=== PATIENT | male | born 1955 | race Caucasian/White ===

== ENCOUNTER 2016-06-27 08:00 | Outpatient (CLI) | payer MEDICARE | END 2016-06-27 08:01 | disposition home or self-care (01) | DX: E11.9 Type 2 diabetes mellitus without complications (principal) ==

== ENCOUNTER 2016-10-03 16:07 | Outpatient (CLI) | payer MEDICARE ==
[2016-10-03 13:46] LABS: ALBUMIN/GLOBULIN RATIO 1.3 (1.0-2.2); BILIRUBIN,TOTAL 0.8 mg/dL (0.2-1.0); BUN - BLOOD UREA NITROGEN 18 mg/dL (6-20); CALCIUM 9.6 mg/dL (8.5-10.3); CARBON DIOXIDE - CO2 24 mmol/L (21-32); CHLORIDE 103 mmol/L (101-111); CHOL/HDL RATIO 7.2 (<5.0); CHOLESTEROL 210 mg/dL; CREATININE 0.8 mg/dL (0.6-1.2); GFR - MDRD 98 (>89); GLUCOSE 122 mg/dL (70-100); HDL CHOLESTEROL 29 mg/dL; LDL/HDL RATIO 4.6 (<3.6); POTASSIUM 3.9 mmol/L (3.5-5.0); SODIUM 136 mmol/L (135-145); TOTAL PROTEIN 7.2 g/dL (6.7-8.2); TRIGLYCERIDES 239 mg/dL; VLDL CHOLESTEROL 48 mg/dL
[2016-10-03 13:58] LABS: HEMOGLOBIN A1C 0.53 g/dL
== END 2016-10-03 16:08 | disposition home or self-care (01) ==
LOC: LAB.N 16:07
PROVIDERS: ATTEND Family Medicine
DX: E78.5 Hyperlipidemia, unspecified (principal); E11.9 Type 2 diabetes mellitus without complications; I10 Essential (primary) hypertension
CPT/HCPCS: 36415; 80053; 80061; 83036

== ENCOUNTER 2017-01-09 08:00 | Outpatient (CLI) | payer MEDICARE ==
[2017-01-09 14:36] LABS: HEMOGLOBIN A1C 0.48 g/dL
== END 2017-01-09 08:01 | disposition home or self-care (01) ==
LOC: LAB.N 08:00
PROVIDERS: ATTEND Nurse Practitioner Gerontology
DX: E11.9 Type 2 diabetes mellitus without complications (principal)
CPT/HCPCS: 36415; 83036

== ENCOUNTER 2017-04-11 14:19 | Outpatient (CLI) | payer MEDICARE ==
[2017-04-11 14:18] LABS: HEMOGLOBIN A1C 0.53 g/dL
== END 2017-04-11 14:20 | disposition home or self-care (01) ==
LOC: LAB.N 14:19
PROVIDERS: ATTEND Nurse Practitioner Gerontology
DX: E11.9 Type 2 diabetes mellitus without complications (principal)
CPT/HCPCS: 36415; 83036

== ENCOUNTER 2017-07-19 14:02 | Outpatient (CLI) | payer MEDICARE ==
[2017-07-19 19:29] LABS: HB2 TOTAL 13.7 g/dL; HEMOGLOBIN A1C 0.54 g/dL; HEMOGLOBIN A1C % 5.8 % (4.6-6.2)
== END 2017-07-19 14:03 | disposition home or self-care (01) ==
LOC: LAB.N 14:02
PROVIDERS: ATTEND Nurse Practitioner Gerontology
DX: E11.9 Type 2 diabetes mellitus without complications (principal)
CPT/HCPCS: 36415; 83036

== ENCOUNTER 2017-10-29 08:00 | Outpatient (CLI) | END 2017-10-29 08:01 | disposition home or self-care (01) ==

== ENCOUNTER 2018-01-29 13:20 | Outpatient (CLI) | payer MEDICARE ==
[2018-01-29 19:16] LABS: HB2 TOTAL 13.1 g/dL; HEMOGLOBIN A1C 0.62 g/dL; HEMOGLOBIN A1C % 6.5 % (4.6-6.2)
== END 2018-01-29 13:21 | disposition home or self-care (01) ==
LOC: LAB.N 13:20
PROVIDERS: ATTEND Nurse Practitioner Gerontology
DX: E11.9 Type 2 diabetes mellitus without complications (principal)
CPT/HCPCS: 36415; 83036

== ENCOUNTER 2018-05-14 09:56 | Outpatient (CLI) | payer MEDICARE ==
[2018-05-14 13:02] LABS: ALBUMIN/GLOBULIN RATIO 1.3 (1.0-2.2); ALKALINE PHOSPHATASE 104 IU/L (42-121); ALT ALANINE AMINOTRANSFERASE 28 IU/L (10-60); AST ASPARTATE AMINOTRANSFERASE 25 IU/L (10-42); BILIRUBIN,TOTAL 0.7 mg/dL (0.2-1.0); BUN - BLOOD UREA NITROGEN 13 mg/dL (6-20); CALCIUM 9.3 mg/dL (8.5-10.3); CARBON DIOXIDE - CO2 24 mmol/L (21-32); CHLORIDE 103 mmol/L (101-111); CHOL/HDL RATIO 6.9 (<5.0); CHOLESTEROL 214 mg/dL; CREATININE 0.4 mg/dL (0.6-1.2); GFR - MDRD 218 (>89); GLUCOSE 149 mg/dL (70-100); HB2 TOTAL 12.8 g/dL; HDL CHOLESTEROL 31 mg/dL; HEMOGLOBIN A1C 0.58 g/dL; HEMOGLOBIN A1C % 6.3 % (4.6-6.2); LDL CHOLESTEROL,CALCULATED 141 mg/dL; LDL/HDL RATIO 4.5 (<3.6); SODIUM 138 mmol/L (135-145); TOTAL PROTEIN 7.1 g/dL (6.7-8.2); VLDL CHOLESTEROL 42 mg/dL
== END 2018-05-14 23:59 ==
LOC: LAB.N 09:56
PROVIDERS: ATTEND Nurse Practitioner Gerontology
DX: E78.5 Hyperlipidemia, unspecified (principal); E11.9 Type 2 diabetes mellitus without complications
CPT/HCPCS: 36415; 80053; 80061; 83036; 83721; 84443

== ENCOUNTER 2018-08-16 08:00 | Outpatient (CLI) | payer MEDICARE ==
[2018-08-16 13:27] LABS: HB2 TOTAL 12.8 g/dL; HEMOGLOBIN A1C 0.65 g/dL; HEMOGLOBIN A1C % 6.8 % (4.6-6.2)
== END 2018-08-16 23:59 | disposition home or self-care (01) ==
LOC: LAB.N 08:00
PROVIDERS: ATTEND Nurse Practitioner Gerontology
DX: E11.9 Type 2 diabetes mellitus without complications (principal)
CPT/HCPCS: 36415; 83036

== ENCOUNTER 2018-11-19 08:00 | Outpatient (CLI) | payer MEDICARE ==
[2018-11-19 14:05] LABS: HB2 TOTAL 12.3 g/dL; HEMOGLOBIN A1C 0.59 g/dL; HEMOGLOBIN A1C % 6.5 % (4.6-6.2)
== END 2018-11-19 23:59 | disposition home or self-care (01) ==
LOC: LAB.N 08:00
PROVIDERS: ATTEND Nurse Practitioner Gerontology
DX: E11.9 Type 2 diabetes mellitus without complications (principal)
CPT/HCPCS: 36415; 83036

== ENCOUNTER 2019-02-28 08:00 | Outpatient (CLI) | payer MEDICARE ==
[2019-02-28 12:36] LABS: CALCIUM 9.7 mg/dL (8.5-10.3); CREATININE 0.8 mg/dL (0.6-1.2)
[2019-02-28 13:21] LABS: HB2 TOTAL 13.1 g/dL; HEMOGLOBIN A1C 0.62 g/dL; HEMOGLOBIN A1C % 6.5 % (4.6-6.2)
[2019-02-28 18:52] LABS: CREATININE,URINE 234.5 mg/dL; MICROALBUM/CREATININE RATIO,UR 7.2 ug/mg (<30.0); MICROALBUMIN,URINE 1.7 mg/dL (0-300.0)
== END 2019-02-28 23:59 | disposition home or self-care (01) ==
LOC: LAB.N 08:00
PROVIDERS: ATTEND Nurse Practitioner Gerontology
DX: I10 Essential (primary) hypertension (principal); E11.9 Type 2 diabetes mellitus without complications
CPT/HCPCS: 36415; 80048; 82043; 82570; 83036

== ENCOUNTER 2019-06-04 08:48 | Outpatient (CLI) | payer MEDICARE ==
[2019-06-04 12:14] LABS: BASOPHILS % (AUTO) 0.9 %; EOSINOPHILS # (AUTO) 0.2 10^3/uL (0.0-0.7); EOSINOPHILS % (AUTO) 4.7 %; HGB - HEMOGLOBIN 11.5 g/dL (14.0-18.0); LYMPHOCYTES # (AUTO) 1.4 10^3/uL (1.5-3.5); LYMPHOCYTES % (AUTO) 31.3 %; MEAN CORPUSCULAR HEMOGLOBIN 29.4 pg (27.0-31.0); MEAN CORPUSCULAR HGB CONC 31.1 g/dL (32.0-36.0); MEAN CORPUSCULAR VOLUME 94.6 fL (80.0-94.0); MONOCYTES # (AUTO) 0.6 10^3/uL (0.0-1.0); MONOCYTES % (AUTO) 13.5 %; NEUTROPHILS # (AUTO) 2.2 10^3/uL (1.5-6.6); NEUTROPHILS % (AUTO) 49.4 %; PLT - PLATELET COUNT 193 10^3/uL (130-450); RED BLOOD COUNT 3.91 10^6/uL (4.70-6.10); RED CELL DISTRIBUTION WIDTH 14.2 % (12.0-15.0); WHITE BLOOD COUNT 4.4 x10^3/uL (4.8-10.8)
[2019-06-04 12:25] LABS: ALBUMIN 3.8 g/dL (3.2-5.5); ALBUMIN/GLOBULIN RATIO 1.2 (1.0-2.2); ALKALINE PHOSPHATASE 101 IU/L (42-121); ALT ALANINE AMINOTRANSFERASE 23 IU/L (10-60); AST ASPARTATE AMINOTRANSFERASE 26 IU/L (10-42); BILIRUBIN,TOTAL 0.6 mg/dL (0.2-1.0); BUN - BLOOD UREA NITROGEN 10 mg/dL (6-20); CALCIUM 9.1 mg/dL (8.5-10.3); CARBON DIOXIDE - CO2 26 mmol/L (21-32); CHLORIDE 101 mmol/L (101-111); CHOL/HDL RATIO 5.7 (<5.0); CHOLESTEROL 166 mg/dL; CREATININE 0.7 mg/dL (0.6-1.2); GFR - MDRD 114 (>89); GLUCOSE 127 mg/dL (70-100); HDL CHOLESTEROL 29 mg/dL; LDL CHOLESTEROL,CALCULATED 99 mg/dL; LDL/HDL RATIO 3.4 (<3.6); SODIUM 138 mmol/L (135-145); VLDL CHOLESTEROL 38 mg/dL
[2019-06-04 12:26] LABS: HB2 TOTAL 11.9 g/dL; HEMOGLOBIN A1C 0.51 g/dL; HEMOGLOBIN A1C % 6.1 % (4.6-6.2)
== END 2019-06-04 23:59 | disposition home or self-care (01) ==
LOC: LAB.N 08:48
PROVIDERS: ATTEND Nurse Practitioner Gerontology
DX: I10 Essential (primary) hypertension (principal); E78.5 Hyperlipidemia, unspecified; E11.9 Type 2 diabetes mellitus without complications
CPT/HCPCS: 36415; 80053; 80061; 83036; 83721; 85025

== ENCOUNTER 2019-06-12 09:00 | Outpatient (CLI) | payer MEDICARE ==
[2019-06-12 13:15] LABS: FERRITIN 75.4 ng/mL (23.9-336.2)
[2019-06-12 13:19] LABS: FOLATE 7.88 ng/mL (5.90 - >24.8)
[2019-06-12 13:27] LABS: % IRON SATURATION 14 % (20-50); IRON 48 ug/dL (45-182); TOTAL IRON BINDING CAPACITY 336 ug/dL (250-450); TRANSFERRIN 240 mg/dL (180-329)
== END 2019-06-12 23:59 | disposition home or self-care (01) ==
LOC: LAB.N 09:00
PROVIDERS: ATTEND Nurse Practitioner Gerontology
DX: D64.9 Anemia, unspecified (principal)
CPT/HCPCS: 36415; 82607; 82728; 82746; 83540; 84466

== ENCOUNTER 2019-09-02 08:00 | Outpatient (CLI) | payer MEDICARE ==
[2019-09-02 13:37] LABS: BASOPHILS % (AUTO) 0.8 %; EOSINOPHILS # (AUTO) 0.2 10^3/uL (0.0-0.7); EOSINOPHILS % (AUTO) 4.3 %; HGB - HEMOGLOBIN 11.8 g/dL (14.0-18.0); LYMPHOCYTES # (AUTO) 1.3 10^3/uL (1.5-3.5); LYMPHOCYTES % (AUTO) 24.7 %; MEAN CORPUSCULAR HEMOGLOBIN 28.6 pg (27.0-31.0); MEAN CORPUSCULAR HGB CONC 31.8 g/dL (32.0-36.0); MEAN PLATELET VOLUME 10.3 fL (7.4-11.4); MONOCYTES # (AUTO) 0.6 10^3/uL (0.0-1.0); NEUTROPHILS # (AUTO) 2.9 10^3/uL (1.5-6.6); NEUTROPHILS % (AUTO) 57.8 %; PLT - PLATELET COUNT 202 10^3/uL (130-450); RED BLOOD COUNT 4.12 10^6/uL (4.70-6.10); RED CELL DISTRIBUTION WIDTH 14.6 % (12.0-15.0); WHITE BLOOD COUNT 5.1 x10^3/uL (4.8-10.8)
[2019-09-02 13:45] LABS: HB2 TOTAL 11.9 g/dL; HEMOGLOBIN A1C 0.51 g/dL; HEMOGLOBIN A1C % 6.1 % (4.6-6.2)
[2019-09-02 13:48] LABS: CALCIUM 9.3 mg/dL (8.5-10.3); CREATININE 0.8 mg/dL (0.6-1.2)
[2019-09-02 18:27] LABS: MICROALBUM/CREATININE RATIO,UR 12.9 ug/mg (<30.0); MICROALBUMIN,URINE 3.1 mg/dL (0-300.0)
== END 2019-09-02 23:59 | disposition home or self-care (01) ==
LOC: LAB.WCP 08:00
PROVIDERS: ATTEND Family Medicine
DX: D64.9 Anemia, unspecified (principal); E11.9 Type 2 diabetes mellitus without complications; I10 Essential (primary) hypertension
CPT/HCPCS: 36415; 80048; 82043; 82570; 83036; 85025

== ENCOUNTER 2019-11-24 08:00 | Outpatient (CLI) | payer MEDICARE | END 2019-11-24 08:01 | disposition home or self-care (01) | LOC: COV 08:00 | PROVIDERS: ATTEND Family Medicine | DX: Z01.812 Encounter for preprocedural laboratory examination (principal); R43.8 Other disturbances of smell and taste; Z20.828 Contact with and (suspected) exposure to other viral communicable diseases ==

== ENCOUNTER 2019-11-27 06:25 | Day surgery (SDC) | payer MEDICARE ==
[2019-11-27] MEDS ORDERED: fentaNYL 250 MCG/5 ML VIAL IVP ONE (06:26)
[2019-11-27] MEDS ORDERED: MIDAZOLAM 2 MG/2 ML VIAL IVP ONE (06:26)
[2019-11-27] MEDS ORDERED: LACTATED RINGERS 1,000 ML IV ONE (06:45)
[2019-11-27 08:55] VITALS: BP 112/65
== END 2019-11-27 06:26 | disposition home or self-care (01) ==
LOC: SDS 06:25
PROVIDERS: ATTEND Surgery
PROC: 0DJD8ZZ Inspection of Lower Intestinal Tract, Via Natural or Artificial Opening Endoscopic (ICD-10-PCS; principal; 2019-11-27 07:30)
DX: Z12.11 Encounter for screening for malignant neoplasm of colon (principal); K64.8 Other hemorrhoids; K57.30 Diverticulosis of large intestine without perforation or abscess without bleeding; Q43.8 Other specified congenital malformations of intestine; E66.9 Obesity, unspecified; E11.9 Type 2 diabetes mellitus without complications; Z68.41 Body mass index [BMI] 40.0-44.9, adult; Z79.84 Long term (current) use of oral hypoglycemic drugs
CPT/HCPCS: G0121; J3010; J7120

== ENCOUNTER 2020-02-27 08:00 | Outpatient (CLI) | payer MEDICARE ==
[2020-02-27 11:55] LABS: CALCIUM 9.5 mg/dL (8.5-10.3); CREATININE 0.6 mg/dL (0.6-1.2)
== END 2020-02-27 23:59 | disposition home or self-care (01) ==
LOC: LAB.WCP 08:00
PROVIDERS: ATTEND Family Medicine
DX: E11.9 Type 2 diabetes mellitus without complications (principal)
CPT/HCPCS: 36415; 80048; 82043; 82570; 83036

== ENCOUNTER 2020-02-27 11:00 | Outpatient (CLI) | payer MEDICARE ==
[2020-02-27 19:09] LABS: CREATININE,URINE 145.6 mg/dL; MICROALBUM/CREATININE RATIO,UR 12.4 ug/mg (<30.0); MICROALBUMIN,URINE 1.8 mg/dL (0-300.0)
== END 2020-02-27 23:59 | disposition home or self-care (01) ==
LOC: LAB.R 11:00
PROVIDERS: ATTEND Family Medicine
DX: E11.9 Type 2 diabetes mellitus without complications (principal)
CPT/HCPCS: 82043; 82570

== ENCOUNTER 2020-07-20 07:00 | Outpatient (CLI) | payer MEDICARE ==
[2020-07-20 12:08] LABS: CREATININE,URINE 113.4 mg/dL; MICROALBUM/CREATININE RATIO,UR 6.2 ug/mg (<30.0); MICROALBUMIN,URINE 0.7 mg/dL (0-300.0)
[2020-07-20 12:15] LABS: BASOPHILS # (AUTO) 0.1 10^3/uL (0.0-0.1); BASOPHILS % (AUTO) 1.1 %; EOSINOPHILS # (AUTO) 0.2 10^3/uL (0.0-0.7); EOSINOPHILS % (AUTO) 5.1 %; HCT - HEMATOCRIT 37.2 % (42.0-52.0); HGB - HEMOGLOBIN 12.2 g/dL (14.0-18.0); LYMPHOCYTES # (AUTO) 1.1 10^3/uL (1.5-3.5); LYMPHOCYTES % (AUTO) 23.6 %; MEAN CORPUSCULAR HEMOGLOBIN 30.3 pg (27.0-31.0); MEAN CORPUSCULAR HGB CONC 32.8 g/dL (32.0-36.0); MEAN CORPUSCULAR VOLUME 92.5 fL (80.0-94.0); MEAN PLATELET VOLUME 10.3 fL (7.4-11.4); MONOCYTES # (AUTO) 0.6 10^3/uL (0.0-1.0); MONOCYTES % (AUTO) 13.3 %; NEUTROPHILS # (AUTO) 2.7 10^3/uL (1.5-6.6); NEUTROPHILS % (AUTO) 56.7 %; PLT - PLATELET COUNT 203 10^3/uL (130-450); RED BLOOD COUNT 4.02 10^6/uL (4.70-6.10); RED CELL DISTRIBUTION WIDTH 13.7 % (12.0-15.0); WHITE BLOOD COUNT 4.7 x10^3/uL (4.8-10.8)
[2020-07-20 12:18] LABS: ESTIMATED AVERAGE GLUCOSE 126 mg/dL (70-100)
[2020-07-20 12:31] LABS: ALBUMIN 4.1 g/dL (3.2-5.5); ALBUMIN/GLOBULIN RATIO 1.3 (1.0-2.2); ALKALINE PHOSPHATASE 100 IU/L (42-121); ALT ALANINE AMINOTRANSFERASE 22 IU/L (10-60); AST ASPARTATE AMINOTRANSFERASE 28 IU/L (10-42); BILIRUBIN,TOTAL 0.9 mg/dL (0.2-1.0); BUN - BLOOD UREA NITROGEN 14 mg/dL (6-20); CALCIUM 9.3 mg/dL (8.5-10.3); CARBON DIOXIDE - CO2 22 mmol/L (21-32); CHLORIDE 103 mmol/L (101-111); CHOL/HDL RATIO 6.6 (<5.0); CHOLESTEROL 217 mg/dL; CREATININE 0.8 mg/dL (0.6-1.2); GFR - MDRD 97 (>89); GLUCOSE 157 mg/dL (70-100); HDL CHOLESTEROL 33 mg/dL; LDL CHOLESTEROL,CALCULATED 147 mg/dL; LDL/HDL RATIO 4.5 (<3.6); POTASSIUM 3.9 mmol/L (3.5-5.0); SODIUM 134 mmol/L (135-145); TOTAL PROTEIN 7.3 g/dL (6.7-8.2); TRIGLYCERIDES 187 mg/dL; VLDL CHOLESTEROL 37 mg/dL
[2020-07-20 12:35] LABS: THYROID STIMULATING HORMONE 2.02 uIU/mL (0.34-5.60)
== END 2020-07-20 23:59 | disposition home or self-care (01) ==
LOC: LAB.WCP 07:00
PROVIDERS: ATTEND Internal Medicine
DX: E11.9 Type 2 diabetes mellitus without complications (principal); E78.5 Hyperlipidemia, unspecified; E21.3 Hyperparathyroidism, unspecified; Z12.5 Encounter for screening for malignant neoplasm of prostate; D64.9 Anemia, unspecified
CPT/HCPCS: 36415; 80053; 80061; 82043; 82570; 83036; 83970; 84443; 85025; G0103; 83721; 84153

== ENCOUNTER 2020-11-18 09:32 | Outpatient (CLI) | payer MEDICARE ==
[2020-11-18 12:15] LABS: ALT ALANINE AMINOTRANSFERASE 24 IU/L (10-60); CHOL/HDL RATIO 6.1 (<5.0); CHOLESTEROL 170 mg/dL; HDL CHOLESTEROL 28 mg/dL; LDL CHOLESTEROL,CALCULATED 89 mg/dL; LDL/HDL RATIO 3.2 (<3.6); TRIGLYCERIDES 265 mg/dL; VLDL CHOLESTEROL 53 mg/dL
== END 2020-11-18 23:59 | disposition home or self-care (01) ==
LOC: LAB.WCP 09:32
PROVIDERS: ATTEND Internal Medicine
DX: E78.5 Hyperlipidemia, unspecified (principal)
CPT/HCPCS: 36415; 80061; 83721; 84460

== ENCOUNTER 2021-02-25 10:43 | Outpatient (CLI) | payer MEDICARE ==
[2021-02-25 18:35] LABS: BUN - BLOOD UREA NITROGEN 12 mg/dL (6-20); CALCIUM 9.4 mg/dL (8.5-10.3); CARBON DIOXIDE - CO2 23 mmol/L (21-32); CHLORIDE 101 mmol/L (101-111); CHOL/HDL RATIO 5.4 (<5.0); CHOLESTEROL 177 mg/dL; CREATININE 0.8 mg/dL (0.6-1.2); GFR - MDRD 97 (>89); GLUCOSE 151 mg/dL (70-100); HDL CHOLESTEROL 33 mg/dL; LDL CHOLESTEROL,CALCULATED 100 mg/dL; POTASSIUM 3.9 mmol/L (3.5-5.0); SODIUM 135 mmol/L (135-145); TRIGLYCERIDES 219 mg/dL; VLDL CHOLESTEROL 44 mg/dL
[2021-02-25 21:13] LABS: ESTIMATED AVERAGE GLUCOSE 143 mg/dL (70-100); HEMOGLOBIN A1c% 6.6 % (4.27-6.07)
== END 2021-02-25 23:59 | disposition home or self-care (01) ==
LOC: LAB.WCP 10:43
PROVIDERS: ATTEND Internal Medicine
DX: E11.9 Type 2 diabetes mellitus without complications (principal); I25.10 Atherosclerotic heart disease of native coronary artery without angina pectoris
CPT/HCPCS: 36415; 80048; 80061; 83036; 83721

== ENCOUNTER 2021-03-18 07:59 | Outpatient (CLI) | payer MEDICARE ==
--- NOTE | 2021-03-18 09:57 | DEXA Report ---
PROCEDURE: Dexa Spine and/or Hip INDICATIONS: HYPERPARATHYROIDISM TECHNIQUE: Dual energy x-ray absorptiometry (DXA) was performed on a Dormify System. Regions measur ed are the AP Spine, femoral neck, and the forearm. Forearm was measured secondary to hyperparathyroi dism. There is also discogenic sclerosis at the L1 vertebral body COMPARISON: None. FINDINGS: Left Femoral Neck: Bone Mineral Density 1.025 g/cm/cm, T score -0.3, normal Left forearm: Bone Mineral Density 0.946 g/cm/cm, T score -0.4, normal (T score greater or equal to -1.0: NORMAL) (T score from -1.1 to -2.4: OSTEOPENIA) (T score less than or equal to -2.5 to: OSTEOPOROSIS) Impression: Normal. Patients with diagnosis of osteoporosis or osteopenia should have regular bone mineral density assess ment. For those eligible for Medicare, routine testing is allowed once every 2 years. Testing frequ ency can be increased for patients who have rapidly progressing disease or for those who are receivin g medical therapy to restore bone mass. Reviewed by: Hardik Walker MD on 03/18/2021 9:55 AM PST Approved by: Hardik Walker MD on 03/18/2021 9:55 AM PST Station ID: [id number]
== END 2021-03-18 08:00 | disposition home or self-care (01) ==
LOC: DI 07:59
PROVIDERS: ATTEND Internal Medicine
DX: E21.0 Primary hyperparathyroidism (principal)

== ENCOUNTER 2021-07-25 09:21 | Outpatient (CLI) | payer MEDICARE ==
[2021-07-25 12:04] LABS: BASOPHILS % (AUTO) 0.5 %; EOSINOPHILS # (AUTO) 0.2 10^3/uL (0.0-0.7); EOSINOPHILS % (AUTO) 3.6 %; HCT - HEMATOCRIT 37.4 % (42.0-52.0); HGB - HEMOGLOBIN 12.3 g/dL (14.0-18.0); LYMPHOCYTES # (AUTO) 1.3 10^3/uL (1.5-3.5); LYMPHOCYTES % (AUTO) 22.8 %; MEAN CORPUSCULAR HEMOGLOBIN 28.9 pg (27.0-31.0); MEAN CORPUSCULAR HGB CONC 32.9 g/dL (32.0-36.0); MEAN PLATELET VOLUME 10.3 fL (7.4-11.4); MONOCYTES # (AUTO) 0.7 10^3/uL (0.0-1.0); MONOCYTES % (AUTO) 12.5 %; NEUTROPHILS # (AUTO) 3.5 10^3/uL (1.5-6.6); NEUTROPHILS % (AUTO) 60.6 %; PLT - PLATELET COUNT 190 10^3/uL (130-450); RED BLOOD COUNT 4.25 10^6/uL (4.70-6.10); RED CELL DISTRIBUTION WIDTH 14.6 % (12.0-15.0); WHITE BLOOD COUNT 5.8 x10^3/uL (4.8-10.8)
[2021-07-25 12:12] LABS: CREATININE,URINE 172.1 mg/dL; MICROALBUM/CREATININE RATIO,UR 15.1 ug/mg (<30.0); MICROALBUMIN,URINE 2.6 mg/dL (0-300.0)
[2021-07-25 12:57] LABS: THYROID STIMULATING HORMONE 2.14 uIU/mL (0.34-5.60)
[2021-07-25 13:00] LABS: ALBUMIN 4.1 g/dL (3.2-5.5); ALBUMIN/GLOBULIN RATIO 1.2 (1.0-2.2); ALKALINE PHOSPHATASE 106 IU/L (42-121); ALT ALANINE AMINOTRANSFERASE 23 IU/L (10-60); AST ASPARTATE AMINOTRANSFERASE 30 IU/L (10-42); BILIRUBIN,TOTAL 0.6 mg/dL (0.2-1.0); BUN - BLOOD UREA NITROGEN 17 mg/dL (6-20); CALCIUM 9.3 mg/dL (8.5-10.3); CARBON DIOXIDE - CO2 23 mmol/L (21-32); CHLORIDE 102 mmol/L (101-111); CHOL/HDL RATIO 5.1 (<5.0); CHOLESTEROL 173 mg/dL; CREATININE 0.8 mg/dL (0.6-1.2); GFR - MDRD 97 (>89); GLUCOSE 146 mg/dL (70-100); HDL CHOLESTEROL 34 mg/dL; LDL CHOLESTEROL,CALCULATED 95 mg/dL; LDL/HDL RATIO 2.8 (<3.6); POTASSIUM 3.6 mmol/L (3.5-5.0); SODIUM 137 mmol/L (135-145); TOTAL PROTEIN 7.6 g/dL (6.7-8.2); TRIGLYCERIDES 221 mg/dL; VLDL CHOLESTEROL 44 mg/dL
[2021-07-25 13:46] LABS: ESTIMATED AVERAGE GLUCOSE 128 mg/dL (70-100); HEMOGLOBIN A1c% 6.1 % (4.27-6.07)
== END 2021-07-25 09:22 | disposition home or self-care (01) ==
LOC: LAB.N 09:21
PROVIDERS: ATTEND Internal Medicine
DX: I10 Essential (primary) hypertension (principal); E11.9 Type 2 diabetes mellitus without complications; E21.0 Primary hyperparathyroidism; Z12.5 Encounter for screening for malignant neoplasm of prostate
CPT/HCPCS: 36415; 80053; 80061; 82043; 82570; 83036; 83970; 84443; 85025; G0103; 83721; 84153

== ENCOUNTER 2022-05-15 08:21 | Outpatient (CLI) | payer MEDICARE ==
[2022-05-15 12:38] LABS: BASOPHILS % (AUTO) 0.8 %; EOSINOPHILS # (AUTO) 0.2 10^3/uL (0.0-0.7); EOSINOPHILS % (AUTO) 3.9 %; HCT - HEMATOCRIT 37.5 % (42.0-52.0); LYMPHOCYTES # (AUTO) 1.3 10^3/uL (1.5-3.5); LYMPHOCYTES % (AUTO) 26.9 %; MEAN CORPUSCULAR HEMOGLOBIN 29.1 pg (27.0-31.0); MEAN PLATELET VOLUME 10.5 fL (7.4-11.4); MONOCYTES # (AUTO) 0.6 10^3/uL (0.0-1.0); MONOCYTES % (AUTO) 12.1 %; NEUTROPHILS # (AUTO) 2.7 10^3/uL (1.5-6.6); NEUTROPHILS % (AUTO) 56.1 %; PLT - PLATELET COUNT 181 10^3/uL (130-450); RED BLOOD COUNT 4.12 10^6/uL (4.70-6.10); RED CELL DISTRIBUTION WIDTH 14.5 % (12.0-15.0); WHITE BLOOD COUNT 4.9 x10^3/uL (4.8-10.8)
[2022-05-15 13:00] LABS: CREATININE,URINE 115.7 mg/dL; ESTIMATED AVERAGE GLUCOSE 131 mg/dL (70-100); HEMOGLOBIN A1c% 6.2 % (4.27-6.07); MICROALBUM/CREATININE RATIO,UR 16.4 ug/mg (<30.0); MICROALBUMIN,URINE 1.9 mg/dL (0-300.0)
[2022-05-15 13:06] LABS: THYROID STIMULATING HORMONE 3.23 uIU/mL (0.34-5.60)
[2022-05-15 13:07] LABS: ALBUMIN 4.1 g/dL (3.2-5.5); ALBUMIN/GLOBULIN RATIO 1.2 (1.0-2.2); ALKALINE PHOSPHATASE 110 IU/L (42-121); ALT ALANINE AMINOTRANSFERASE 22 IU/L (10-60); AST ASPARTATE AMINOTRANSFERASE 27 IU/L (10-42); BILIRUBIN,TOTAL 0.7 mg/dL (0.2-1.0); BUN - BLOOD UREA NITROGEN 14 mg/dL (6-20); CALCIUM 9.7 mg/dL (8.5-10.3); CARBON DIOXIDE - CO2 25 mmol/L (21-32); CHLORIDE 102 mmol/L (101-111); CHOL/HDL RATIO 4.9 (<5.0); CHOLESTEROL 165 mg/dL; CREATININE 0.7 mg/dL (0.6-1.2); GFR - MDRD 113 (>89); GLUCOSE 150 mg/dL (70-100); HDL CHOLESTEROL 34 mg/dL; LDL CHOLESTEROL,CALCULATED 94 mg/dL; LDL/HDL RATIO 2.8 (<3.6); POTASSIUM 3.9 mmol/L (3.5-5.0); SODIUM 136 mmol/L (135-145); TOTAL PROTEIN 7.6 g/dL (6.7-8.2); TRIGLYCERIDES 186 mg/dL; VLDL CHOLESTEROL 37 mg/dL
== END 2022-05-15 08:22 | disposition home or self-care (01) ==
LOC: LAB.N 08:21
PROVIDERS: ATTEND Internal Medicine
DX: E78.5 Hyperlipidemia, unspecified (principal); Z12.5 Encounter for screening for malignant neoplasm of prostate; E11.9 Type 2 diabetes mellitus without complications; F32.A Depression, unspecified; I10 Essential (primary) hypertension
CPT/HCPCS: 36415; 80053; 80061; 82043; 82570; 83036; 84443; 85025; G0103; 83721; 84153

== ENCOUNTER 2022-06-28 20:47 | Outpatient (CLI) | payer MEDICARE, MEDICAID | END 2022-06-28 23:59 | disposition critical access hospital (66) | LOC: EMS 20:47 | DX: M54.50 Low back pain, unspecified (principal) | CPT/HCPCS: A0425; A0429 ==

== ENCOUNTER 2022-06-28 21:31 | Emergency (ER) | payer MEDICARE, MEDICAID ==
[2022-06-28] MEDS ORDERED: ACETAMINOPHEN 325 MG TABLET PO STA (21:54)
[2022-06-28] MEDS ORDERED: LIDOCAINE PATCH 5% TOP STA (21:54)
--- NOTE | 2022-06-28 22:47 | ED Physician Documentation ---
PD HPI BACK PAIN - Stated complaint Stated Complaint: R HIP PX - Chief complaint Chief Complaint: Back Pain - History obtained from History obtained from: Patient - Additional information Additional information: Patient is a 66-year-old male presenting for evaluation of right hip/Buttock pain that is been present for 4 days. Patient reports waking up with this pain 4 days ago and it has continued. He notices it more when he is walking. Today he was walking at home and noticed increased episodes of pain. However since calling EMS the pain has started to subside. He has not taken anything for the pain. He denies trauma or known injury.The pain does not radiate elsewhere. He denies bowel or bladder incontinence. He denies Back pain. Review of Systems Constitutional: denies: Fever Cardiac: denies: Chest pain / pressure Respiratory: denies: Dyspnea GI: denies: Abdominal Pain : denies: Dysuria Musculoskeletal: denies: Back pain Neurologic: denies: Headache PD PAST MEDICAL HISTORY - Past Medical History Past Medical History: Yes Cardiovascular: Hypertension, High cholesterol, Coronary artery disease, [place] Endocrine/Autoimmune: Type 2 diabetes GI: Diverticulitis HEENT: Other Psych: None Musculoskeletal: Chronic back pain - Past Surgical History Past Surgical History: Yes Ortho: Carpal Tunnel surgery, Spine surgery, Other Cardiovascular: Angioplasty Neuro: Craniotomy, Other - Present Medications Home Medications: Ambulatory Orders Medication Instructions Recorded Confirmed Amlodipine Besylate 10 mg PO DAILY 02/06/14 11/27/19 Cholecalciferol (Vitamin D3) 5,000 unit PO DAILY 02/06/14 02/25/14 [Vitamin D3] Nitroglycerin [Nitrostat] 0.4 mg SL Q5MIN PRN 02/06/14 11/26/19 Vitamin B 12 1,000 mcg PO DAILY 02/25/14 11/27/19 Lidocaine Patch 5% [Lidoderm Patch] 1 patch TOP DAILY PRN #10 patch 06/28/22 Rosuvastatin Calcium [Crestor] 40 mg PO DAILY 06/28/22 06/28/22 gemfibroziL [Lopid] 600 mg PO BIDAC 06/28/22 06/28/22 lisinopriL [Zestril] 5 mg PO DAILY 06/28/22 06/28/22 metFORMIN [Glucophage] 500 mg PO BIDWM 06/28/22 06/28/22 - Allergies Allergies/Adverse Reactions: Allergies Allergy/AdvReac Type Severity Reaction Status Date / Time baclofen AdvReac Headache Verified 02/06/14 12:41 terfenadine [From Seldane] AdvReac Headache Verified 02/06/14 12:41 seasonal Allergy Unknown Uncoded 02/06/14 12:41 - Social History Does the pt smoke?: No Smoking Status: Never smoker PD ED PE NORMAL - General General: Alert and oriented X 3, No acute distress, Well developed/nourished - HEENT HEENT: Atraumatic - Neck Neck: Supple, no meningeal sign - Cardiac Cardiac: RRR - Respiratory Respiratory: No respiratory distress, Clear bilaterally - Abdomen Abdomen: Soft, Non tender, Non distended - Back Back: No CVA TTP, No spinal TTP - Extremities Extremities: Other (Mild pain on external rotation of right hip, no deformity; Patient able to ambulate without any difficulty) - Neuro Neuro: Alert and oriented X 3, No motor deficit, Normal speech PD ED PE EXPANDED - Back Back visual: 1 - tenderness (No rash, bruising or deformity) Results - Vitals Vitals: Vital Signs - 24 hr 06/28/22 06/28/22 21:32 22:55 Temperature 37.1 C 37.0 C Heart Rate 82 70 Respiratory 16 18 Rate Blood Pressure 160/80 H 128/108 H O2 Saturation 99 100 Oxygen O2 Source Room air PD Medical Decision Making - ED course Complexity details: reviewed results ED course: Patient with pain in the region of his right hip and buttock. No trauma or fall. He is able to ambulate without difficulty. The pain has improved since coming to the emergency department.No signs of a septic joint. An x-ray was obtained which I reviewed and I see no signs of a fracture or dislocation. Patient feels much better with the lidocaine patch and acetaminophen. He is counseled on continued supportive care as well as need Concerning symptoms to return for. Departure - Departure Disposition: 01 Home, Self Care Clinical Impression: Right hip pain Condition: Stable Instructions: ED Sprain Hip Prescriptions: Lidocaine Patch 5% [Lidoderm Patch] 1 patch TOP DAILY PRN #10 patch PRN Reason: pain Comments: I do not see a broken or out of place bone on your x-ray. Your pain could be related to muscles, ligaments or irritation of nerves in the right hip region. I have sent a prescription for lidocaine patches to [facility] in [place]. Please use the patches as directed. You could also use Acetaminophen 650 mg every 6 hours as needed for pain. You may need to take it easier on your activity for the next couple of days. I would recommend close follow-up with your primary care doctor. If you have any new or worsening symptoms please consider return to the emergency department. Discharge Date/Time: 06/28/22 22:57
[2022-06-28 22:57] VITALS: BP 128/108
--- NOTE | 2022-06-28 23:18 | XRAY Report ---
PROCEDURE: Hip w/Pelvis 2-3V RT INDICATIONS: pain TECHNIQUE: AP pelvis with lateral view of the right hip. COMPARISON: None. FINDINGS: Bones: No definite fractures or dislocations. Pelvic ring appears intact. No suspicious bony lesio ns. Soft tissues: The visualized bowel gas pattern is normal. No suspicious soft tissue calcifications. IMPRESSION: 1. No definite fracture or dislocation Reviewed by: Ru Velázquez MD on 06/28/2022 11:17 PM PST Approved by: Ru Velázquez MD on 06/28/2022 11:17 PM PST Station ID: [id number]
== END 2022-06-28 22:57 | disposition home or self-care (01) ==
LOC: EDUNIT# → ED 21:31
DX: M25.551 Pain in right hip (principal); I10 Essential (primary) hypertension; E11.9 Type 2 diabetes mellitus without complications; Z79.84 Long term (current) use of oral hypoglycemic drugs
CPT/HCPCS: 73502; 99283; A9270

== ENCOUNTER 2023-04-11 07:50 | Emergency (ER) | payer MEDICAID, MEDICARE ==
[2023-04-11] MEDS ORDERED: SODIUM CHLORIDE 0.9% 500 ML IV STA (08:38)
--- NOTE | 2023-04-11 08:40 | ED Physician Documentation ---
PD HPI NVD - Stated complaint Stated Complaint: GEN WEAKNESS - Chief complaint Chief Complaint: General - History obtained from History obtained from: Patient, Family (son) - History of Present Illness Timing - onset: How many days ago (1 week progressive) Timing - duration: Days (7-10) Timing - details: Gradual onset, Still present. No: Waxing and waning Associated symptoms: Hematochezia (he noted some red blood on toilet paper when wiping last night and today.), Dysuria. No: Fever, Chest pain, Melena Contributing factors: No: Sick contact, Travel Improved by: Other (has had feeling of nausea and general fatigue/weakness and malaise for 7-10 days. Has had dysuria and frequency. No vomiting nor diarrhea.) Worsened by: No: Moving, Breathing Recently seen: Not recently seen Review of Systems Constitutional: reports: Myalgias, Fatigue. denies: Fever, Chills Nose: denies: Rhinorrhea / runny nose, Congestion Throat: denies: Sore throat Cardiac: reports: Palpitations. denies: Chest pain / pressure Respiratory: denies: Dyspnea, Cough GI: reports: Nausea, Diarrhea. denies: Abdominal Pain, Vomiting, Bloody / black stool Musculoskeletal: denies: Neck pain, Back pain Neurologic: reports: Generalized weakness. denies: Focal weakness, Numbness, Altered mental status, Headache Endocrine: denies: Weight loss PD PAST MEDICAL HISTORY - Past Medical History Past Medical History: Yes Cardiovascular: Hypertension, High cholesterol, Coronary artery disease, [place] Respiratory: None Neuro: Other Endocrine/Autoimmune: Type 2 diabetes GI: Diverticulitis : None HEENT: Other Psych: None Musculoskeletal: Chronic back pain - Past Surgical History Past Surgical History: Yes Ortho: Carpal Tunnel surgery, Spine surgery, Other Cardiovascular: Angioplasty Neuro: Craniotomy, Other - Present Medications Home Medications: Ambulatory Orders Medication Instructions Recorded Confirmed Amlodipine Besylate 10 mg PO DAILY 02/06/14 04/11/23 Nitroglycerin [Nitrostat] 0.4 mg SL Q5MIN PRN 02/06/14 04/11/23 Rosuvastatin Calcium [Crestor] 40 mg PO DAILY 06/28/22 04/11/23 gemfibroziL [Lopid] 600 mg PO BIDAC 06/28/22 04/11/23 lisinopriL [Zestril] 5 mg PO DAILY 06/28/22 04/11/23 metFORMIN [Glucophage] 500 mg PO BIDWM 06/28/22 04/11/23 cephALEXin [Keflex] 500 mg PO TID #20 cap 04/11/23 - Allergies Allergies/Adverse Reactions: Allergies Allergy/AdvReac Type Severity Reaction Status Date / Time baclofen AdvReac Headache Verified 04/11/23 08:04 terfenadine [From Seldane] AdvReac Headache Verified 04/11/23 08:04 seasonal Allergy Unknown Uncoded 02/06/14 12:41 - Social History Does the pt smoke?: No Smoking Status: Former smoker Does the pt drink ETOH?: No Does the pt have substance abuse?: No - Immunizations Immunizations are current?: Yes PD ED PE NORMAL - Vitals Vital signs reviewed: Yes - General General: Alert and oriented X 3, No acute distress, Well developed/nourished - Neck Neck: Supple, no meningeal sign, No adenopathy - Cardiac Cardiac: No murmur. No: RRR (regular with rate around 100-120. ) - Respiratory Respiratory: No respiratory distress - Abdomen Abdomen: Soft, Non tender - Derm Derm: Warm and dry. No: Normal color (pale color initially) - Extremities Extremities: Normal ROM s pain, No edema, No calf tenderness / cord - Neuro Neuro: Alert and oriented X 3, No motor deficit, Normal speech Eye Opening: Spontaneous Motor: Obeys Commands Verbal: Oriented GCS Score: 15 Results - Vitals Vitals: Vital Signs - 24 hr 04/11/23 04/11/23 04/11/23 08:04 08:56 09:13 Temperature 36.5 C Heart Rate 102 H 85 77 Respiratory 20 16 18 Rate Blood Pressure 90/69 100/71 95/60 O2 Saturation 99 96 97 04/11/23 04/11/23 04/11/23 10:27 11:27 11:46 Temperature Heart Rate 84 83 81 Respiratory 18 18 14 Rate Blood Pressure 110/62 97/57 L 105/62 O2 Saturation 99 99 99 04/11/23 04/11/23 04/11/23 12:02 13:52 14:28 Temperature Heart Rate 90 84 82 Respiratory 18 17 18 Rate Blood Pressure 112/58 L 108/62 116/63 O2 Saturation 98 98 99 04/11/23 15:17 Temperature Heart Rate 81 Respiratory 18 Rate Blood Pressure 112/65 O2 Saturation 96 Oxygen O2 Source Room air - EKG (time done) 08:24 EKG releavant findings:: EKG personally interpreted by author of this note. Relevant findings are: Rate: Rate (enter#) (92) Rhythm: NSR, Other (PACs frequent.) [place]: Normal Intervals: Normal [place] QRS: Normal Ischemia: Normal ST segments. No: ST elevation c/w ischemia, ST depression - Labs Labs: Laboratory Tests 04/11/23 04/11/23 04/11/23 08:55 08:58 08:58 WBC 10.0 RBC 4.34 L Hgb 12.6 L Hct 38.0 L MCV 87.6 MCH 29.0 MCHC 33.2 RDW 14.0 Plt Count 310 MPV 9.1 Neut # (Auto) 7.7 H Lymph # (Auto) 0.9 L Cloud # (Auto) 1.2 H Eos # (Auto) 0.2 Baso # (Auto) 0.0 Absolute Nucleated RBC 0.00 Nucleated RBC % 0.0 Sodium 132 L Potassium 3.3 L Chloride 96 L Carbon Dioxide 23 Anion Gap 13.0 BUN 26 H Creatinine 1.2 Estimated GFR (MDRD) 60 L Glucose 181 H Lactic Acid Calcium 9.5 Magnesium 1.9 Total Bilirubin 0.5 AST 16 ALT 11 Alkaline Phosphatase 146 H Troponin I High Sens B-Natriuretic Peptide Total Protein 6.8 Albumin 3.8 Globulin 3.0 Albumin/Globulin Ratio 1.3 Lipase 31 TSH 3.08 Urine Color Urine Clarity Urine pH Ur Specific [place] Urine Protein Urine Glucose (UA) Urine Ketones Urine Occult Blood Urine Nitrite Urine Bilirubin Urine Urobilinogen Ur Leukocyte Esterase Urine RBC Urine WBC Ur Squamous Epith Cells Urine Bacteria Urine Casts Urine Mucus Ur Microscopic Review Urine Culture Comments Nasal Adenovirus (PCR) NOT DETECTED Nasal B. parapertussis DNA (PCR) NOT DETECTED Nasal Coronavir 229E PCR NOT DETECTED Nasal Coronavir HKU1 PCR NOT DETECTED Nasal Coronavir NL63 PCR NOT DETECTED Nasal Coronavir OC43 PCR NOT DETECTED Nasal Enterovir/Rhinovir PCR NOT DETECTED Nasal Influenza B PCR NOT DETECTED Nasal Influenza A PCR NOT DETECTED Nasal Parainfluen 1 PCR NOT DETECTED Nasal Parainfluen 2 PCR NOT DETECTED Nasal Parainfluen 3 PCR NOT DETECTED Nasal Parainfluen 4 PCR NOT DETECTED Nasal RSV (PCR) NOT DETECTED Nasal B.pertussis DNA PCR NOT DETECTED Nasal C.pneumoniae (PCR) NOT DETECTED Steven Human Metapneumo PCR NOT DETECTED Nasal M.pneumoniae (PCR) NOT DETECTED Nasal SARS-CoV-2 (PCR) NOT DETECTED 04/11/23 04/11/23 04/11/23 08:58 08:58 08:58 WBC RBC Hgb Hct MCV MCH MCHC RDW Plt Count MPV Neut # (Auto) Lymph # (Auto) Cloud # (Auto) Eos # (Auto) Baso # (Auto) Absolute Nucleated RBC Nucleated RBC % Sodium Potassium Chloride Carbon Dioxide Anion Gap BUN Creatinine Estimated GFR (MDRD) Glucose Lactic Acid 1.0 Calcium Magnesium Total Bilirubin AST ALT Alkaline Phosphatase Troponin I High Sens 89.0 H* B-Natriuretic Peptide 23 Total Protein Albumin Globulin Albumin/Globulin Ratio Lipase TSH Urine Color Urine Clarity Urine pH Ur Specific [place] Urine Protein Urine Glucose (UA) Urine Ketones Urine Occult Blood Urine Nitrite Urine Bilirubin Urine Urobilinogen Ur Leukocyte Esterase Urine RBC Urine WBC Ur Squamous Epith Cells Urine Bacteria Urine Casts Urine Mucus Ur Microscopic Review Urine Culture Comments Nasal Adenovirus (PCR) Nasal B. parapertussis DNA (PCR) Nasal Coronavir 229E PCR Nasal Coronavir HKU1 PCR Nasal Coronavir NL63 PCR Nasal Coronavir OC43 PCR Nasal Enterovir/Rhinovir PCR Nasal Influenza B PCR Nasal Influenza A PCR Nasal Parainfluen 1 PCR Nasal Parainfluen 2 PCR Nasal Parainfluen 3 PCR Nasal Parainfluen 4 PCR Nasal RSV (PCR) Nasal B.pertussis DNA PCR Nasal C.pneumoniae (PCR) Steven Human Metapneumo PCR Nasal M.pneumoniae (PCR) Nasal SARS-CoV-2 (PCR) 04/11/23 04/11/23 10:24 13:30 WBC RBC Hgb Hct MCV MCH MCHC RDW Plt Count MPV Neut # (Auto) Lymph # (Auto) Cloud # (Auto) Eos # (Auto) Baso # (Auto) Absolute Nucleated RBC Nucleated RBC % Sodium Potassium Chloride Carbon Dioxide Anion Gap BUN Creatinine Estimated GFR (MDRD) Glucose Lactic Acid Calcium Magnesium Total Bilirubin AST ALT Alkaline Phosphatase Troponin I High Sens 72.2 H* B-Natriuretic Peptide Total Protein Albumin Globulin Albumin/Globulin Ratio Lipase TSH Urine Color YELLOW Urine Clarity HAZY Urine pH 5.5 Ur Specific [place] >=1.030 H Urine Protein 30 H Urine Glucose (UA) NEGATIVE Urine Ketones TRACE Urine Occult Blood NEGATIVE Urine Nitrite NEGATIVE Urine Bilirubin NEGATIVE Urine Urobilinogen 1 (NORMAL) Ur Leukocyte Esterase NEGATIVE Urine RBC None Seen Urine WBC 4-5 Ur Squamous Epith Cells FEW Squamous Urine Bacteria Few Urine Casts 6-10 Hyaline Casts Urine Mucus Marked Strands Ur Microscopic Review INDICATED Urine Culture Comments NOT INDICATED Nasal Adenovirus (PCR) Nasal B. parapertussis DNA (PCR) Nasal Coronavir 229E PCR Nasal Coronavir HKU1 PCR Nasal Coronavir NL63 PCR Nasal Coronavir OC43 PCR Nasal Enterovir/Rhinovir PCR Nasal Influenza B PCR Nasal Influenza A PCR Nasal Parainfluen 1 PCR Nasal Parainfluen 2 PCR Nasal Parainfluen 3 PCR Nasal Parainfluen 4 PCR Nasal RSV (PCR) Nasal B.pertussis DNA PCR Nasal C.pneumoniae (PCR) Steven Human Metapneumo PCR Nasal M.pneumoniae (PCR) Nasal SARS-CoV-2 (PCR) - Rads (name of study) chest xray Relevant Findings:: Prelim report reviewed, EMP independent interpretation of test (No acute process noted. No infiltrates. ) PD Medical Decision Making - ED course Complexity details: re-evaluated patient (he is feeling better with IV fluids and SBP now over 100 (last was 112 systolic). HR improved. Color improved. ), considered differential (Progressive general fatigue and aches without fever over the last several days to week. Household members with mild head colds. Patient without chest pain or belly pain. Some loose stools.), d/w patient Reviewed Lab Results: has troponin in the indeterminant range with repeat in 2 hours that was similar/slgihtly less. This is more indicative of hypoperfusion and presume relates to the lower BP, along with his feeling of weakness presume relates to low BP. He has had some loose stool and poor appetite. Still taking usual meds, which include BP meds. Given IV fluids and I would have him hold some BP meds for now. It took him extended time for urine specimen (he preferred not catheter in and out). The UA has some elements of infection though not clearly UTI. Given his symptoms of dysuria and frequency, along with ill feeling, and no other obvious source, I would treat as UTI pending culture. Departure - Departure Disposition: 01 Home, Self Care Clinical Impression: Hypotension, Dysuria, General weakness Condition: Stable Record reviewed to determine appropriate education?: Yes Follow-Up: Art Mauricio MD [Provider Admit Priv/Credential] - Prescriptions: cephALEXin [Keflex] 500 mg PO TID #20 cap Comments: Your urine test does show signs of some white cells and bacteria suggestive of an infection. It does not overwhelming. However with your symptoms, I would treat it with cephalexin antibiotic for presumed bladder infection. Your blood test otherwise showed a slightly low potassium but otherwise no significant abnormalities including your white count and blood count. Your chest x-ray is clear without any signs of infection. A blood test called troponin which looks for signs of stress on the heart or heart injury was slightly elevated above normal but on a repeat did not show any increase or rise. This would suggest not an acute injury such as a heart attack. Your blood pressure was low coming in and that can lead to less blood flow to the organs such as the heart. It can also have less blood flow in general to your body and brain and could give you the symptoms you are having. At this point I would think maybe the low blood pressure was part of your sym ptoms as well. Be sure to stay well-hydrated. I would suggest stopping your amlodipine or holding it for now for the next week or 10 days and see how you are feeling generally. It is possible you may even be a viral type illness. The nasal swab test we did was negative for the major viruses but does not include all. If you are feeling improved over the next few days then you could resume your usual medicines if your blood pressure is doing well. Otherwise follow-up with your primary care within the next week or so for reevaluation. I sent your prescription to your preferred pharmacy. Forms: PCP List Discharge Date/Time: 04/11/23 15:36
--- NOTE | 2023-04-11 09:08 | XRAY Report ---
PROCEDURE: Chest 1 View X-Ray INDICATIONS: chest pain TECHNIQUE: One view of the chest was acquired. COMPARISON: None. FINDINGS: Surgical changes and devices: None. Lungs and pleura: No pleural effusions or pneumothorax. Lungs are clear. Mediastinum: Mediastinal contours appear normal. Heart size is normal. Bones and chest wall: No suspicious bony lesions. Overlying soft tissues appear unremarkable. IMPRESSION: No acute cardiopulmonary process. Reviewed by: Freedom Tobar MD on 04/11/2023 9:07 AM [facility] Approved by: Freedom Tobar MD on 04/11/2023 9:07 AM [facility] Station ID: [id number]
[2023-04-11 09:12] LABS: BASOPHILS % (AUTO) 0.4 %; EOSINOPHILS # (AUTO) 0.2 10^3/uL (0.0-0.7); EOSINOPHILS % (AUTO) 1.5 %; HGB - HEMOGLOBIN 12.6 g/dL (14.0-18.0); LYMPHOCYTES # (AUTO) 0.9 10^3/uL (1.5-3.5); LYMPHOCYTES % (AUTO) 9.2 %; MEAN CORPUSCULAR HGB CONC 33.2 g/dL (32.0-36.0); MEAN CORPUSCULAR VOLUME 87.6 fL (80.0-94.0); MEAN PLATELET VOLUME 9.1 fL (7.4-11.4); MONOCYTES # (AUTO) 1.2 10^3/uL (0.0-1.0); MONOCYTES % (AUTO) 11.9 %; NEUTROPHILS # (AUTO) 7.7 10^3/uL (1.5-6.6); NEUTROPHILS % (AUTO) 76.8 %; PLT - PLATELET COUNT 310 10^3/uL (130-450); RED BLOOD COUNT 4.34 10^6/uL (4.70-6.10)
[2023-04-11 09:22] LABS: ALBUMIN 3.8 g/dL (3.2-5.5); ALBUMIN/GLOBULIN RATIO 1.3 (1.0-2.2); BILIRUBIN,TOTAL 0.5 mg/dL (0.2-1.0); CALCIUM 9.5 mg/dL (8.5-10.3); CREATININE 1.2 mg/dL (0.6-1.3); MAGNESIUM 1.9 mg/dL (1.7-2.3); POTASSIUM 3.3 mmol/L (3.5-4.5); TOTAL PROTEIN 6.8 g/dL (6.4-8.9)
[2023-04-11 09:38] LABS: THYROID STIMULATING HORMONE 3.08 uIU/mL (0.34-5.60)
[2023-04-11 10:00] LABS: B. PARAPERTUSSIS- RESP PCR PAN NOT DETECTED; B. PERTUSSIS- RESP PCR PANEL NOT DETECTED; C. PNEUMONIAE- RESP PCR PANEL NOT DETECTED; CORONAVIRUS 229E-RESP PCR NOT DETECTED; CORONAVIRUS HKU1-RESP PCR NOT DETECTED; CORONAVIRUS NL63-RESP PCR NOT DETECTED; CORONAVIRUS OC43-RESP PCR NOT DETECTED; HUMAN METAPNEUMOVIRUS NOT DETECTED; INFLUENZA A- RESP PCR PANEL NOT DETECTED; INFLUENZA B - RESP PCR PANEL NOT DETECTED; M. PNEUMONIAE- RESP PCR PANEL NOT DETECTED; PARAINFLUENZA VIRUS 1 NOT DETECTED; PARAINFLUENZA VIRUS 2 NOT DETECTED; PARAINFLUENZA VIRUS 3 NOT DETECTED; PARAINFLUENZA VIRUS 4 NOT DETECTED; RHINOVIRUS/ENTEROVIRUS NOT DETECTED; RSV- RESP PCR PANEL NOT DETECTED; SARS-CoV-2 -RESP PCR PANEL NOT DETECTED
[2023-04-11] MEDS ORDERED: SODIUM CHLORIDE 0.9% 1,000 ML IV STA (11:12)
[2023-04-11 13:52] LABS: GLUCOSE, URINE (UA) NEGATIVE (NEGATIVE); KETONES,URINE (UA) TRACE mg/dL (NEGATIVE); LEUKOCYTE ESTERASE, URINE NEGATIVE (NEGATIVE); NITRITE,URINE NEGATIVE (NEGATIVE); OCCULT BLOOD,URINE NEGATIVE (NEGATIVE); PH,URINE 5.5 PH (5.0-7.5); PROTEIN,URINE 30 mg/dL (NEGATIVE); UROBILINOGEN,URINE 1 (NORMAL) E.U./dL (NORMAL)
[2023-04-11 14:00] LABS: BACTERIA,URINE Few /HPF (None Seen); BILIRUBIN,URINE NEGATIVE (NEGATIVE); CLARITY,URINE HAZY (CLEAR); ICTOTEST,URINE NEGATIVE; RBC,URINE None Seen /HPF (0-5); SQUAMOUS EPITHELIAL CELL,UR FEW Squamous (<= Few)
[2023-04-11 14:01] LABS: CASTS, URINE 6-10 Hyaline Casts /LPF; MUCUS,URINE Marked Strands
[2023-04-11] MEDS ORDERED: cefTRIAXone 1 GM VIAL IVP STA (14:33)
[2023-04-11 15:24] VITALS: BP 112/65; O2SAT 96
== END 2023-04-11 15:36 | disposition home or self-care (01) ==
LOC: ED 07:50
DX: I95.9 Hypotension, unspecified (principal); R53.1 Weakness; R30.0 Dysuria; I10 Essential (primary) hypertension; E11.9 Type 2 diabetes mellitus without complications; E78.00 Pure hypercholesterolemia, unspecified; I25.2 Old myocardial infarction; Z11.52 Encounter for screening for COVID-19; Z79.899 Other long term (current) drug therapy; Z79.84 Long term (current) use of oral hypoglycemic drugs; Z87.891 Personal history of nicotine dependence
CPT/HCPCS: 36415; 80053; 81001; 81003; 83605; 83690; 83735; 83880; 84443; 84484; 85025; 87086; 87633; 93005; 96361; 96374; 99284

== ENCOUNTER 2023-04-24 10:10 | Outpatient (CLI) | payer MEDICARE | END 2023-04-24 10:11 | disposition critical access hospital (66) | LOC: EMS 10:10 | DX: R55 Syncope and collapse (principal); R46.4 Slowness and poor responsiveness | CPT/HCPCS: A0425; A0429 ==

== ENCOUNTER 2023-04-24 10:24 | Inpatient (IN) | payer MEDICARE ==
[2023-04-24] MEDS ORDERED: SODIUM CHLORIDE 0.9% 1,000 ML IV STA ×4 (10:45→13:46)
--- NOTE | 2023-04-24 10:45 | ED Physician Documentation ---
PD HPI SYNCOPE - Stated complaint Stated Complaint: AMS - Chief complaint Chief Complaint: Neuro - History obtained from History obtained from: Patient, Family (son) - History of Present Illness Witnessed: Witnessed Timing - onset: Other (The patient has had increased general weakness over the last week with low appetite and less intake. He had been seen 8 days ago for some chest pain up at [facility] and was seen on the sixth here for cold- like symptoms.) Duration: Minutes (had syncope for seconds to a minute then awoke.) Associated symptoms: Chest pain, Abdominal pain (has had abd pain for few weeks.). No: Headache, Palpitations Contributing factors: Decreased PO intake, Just stood up. No: Recent med change, Noxious stimulae Injury occurred: No: Head injury, Neck injury Similar symptoms before: Has not had sx before Recently seen: Emergency Dept (Seeing April 11 at [facility] ER for respiratory type symptoms. No significant abnormalities there. Seen 04/16/[address] [facility] for chest and abdomen pain. CT chest was without any clots or aortic abnormalities. Had some pneumonitis. CT abdomen showed lesions omentum, spleen, liver.) Review of Systems Constitutional: reports: Myalgias, Fatigue. denies: Fever, Chills Nose: denies: Rhinorrhea / runny nose Throat: denies: Sore throat Respiratory: reports: Dyspnea, Cough GI: reports: Abdominal Pain, Nausea, Diarrhea, Bloody / black stool (dark stools.). denies: Vomiting : denies: Dysuria Musculoskeletal: denies: Neck pain, Back pain PD PAST MEDICAL HISTORY - Past Medical History Cardiovascular: Hypertension, High cholesterol, Coronary artery disease, [place] Respiratory: None Neuro: Other Endocrine/Autoimmune: Type 2 diabetes GI: Diverticulitis : None HEENT: Other Psych: None Musculoskeletal: Chronic back pain - Past Surgical History Past Surgical History: Yes Ortho: Carpal Tunnel surgery, Spine surgery, Other Cardiovascular: Angioplasty Neuro: Craniotomy, Other - Present Medications Home Medications: Ambulatory Orders Medication Instructions Recorded Confirmed Amlodipine Besylate 10 mg PO DAILY 02/06/14 04/24/23 Nitroglycerin [Nitrostat] 0.4 mg SL Q5MIN PRN 02/06/14 04/24/23 Rosuvastatin Calcium [Crestor] 40 mg PO DAILY 06/28/22 04/24/23 gemfibroziL [Lopid] 600 mg PO BIDAC 06/28/22 04/24/23 lisinopriL [Zestril] 5 mg PO DAILY 06/28/22 04/24/23 metFORMIN [Glucophage] 500 mg PO BIDWM 06/28/22 04/24/23 [place]-3/Dha/Epa/Fish Oil [Fish Oil 1 each PO DAILY 04/24/23 04/24/23 1,000 mg Softgel] - Allergies Allergies/Adverse Reactions: Allergies Allergy/AdvReac Type Severity Reaction Status Date / Time pollen extracts Allergy Unknown Unknown Verified 04/24/23 16:22 baclofen AdvReac Headache Verified 04/24/23 10:32 terfenadine [From Seldane] AdvReac Headache Verified 04/24/23 10:32 - Social History Does the pt smoke?: No Smoking Status: Never smoker Does the pt drink ETOH?: No Does the pt have substance abuse?: No - Immunizations Immunizations are current?: Yes - POLST POLST Status: DNR (no intubation, no central line, ? compressions. Transfusion okay.) PD ED PE NORMAL - Vitals Vital signs reviewed: Yes - General General: Alert and oriented X 3, Well developed/nourished - Neck Neck: Supple, no meningeal sign, No adenopathy - Cardiac Cardiac: RRR, No murmur - Respiratory Respiratory: No respiratory distress, Clear bilaterally - Abdomen Abdomen: Normal bowel sounds, Soft, No organomegaly, Other (mild distended with dullness to percussion. ) - Extremities Extremities: Normal ROM s pain, No calf tenderness / cord - Neuro Neuro: Alert and oriented X 3, Normal speech (pale and generally weak. No focal weakness noted. Skin is cool. ) Results - Vitals Vitals: Vital Signs - 24 hr 04/24/23 04/24/23 04/24/23 10:36 11:00 12:19 Temperature 35.2 C L 35.5 C L Heart Rate 82 81 76 Respiratory 24 22 18 Rate Blood Pressure 54/42 L 61/39 L 74/40 L O2 Saturation 100 97 99 04/24/23 04/24/23 04/24/23 13:12 13:56 14:07 Temperature 34.8 C L Heart Rate 73 80 73 Respiratory 16 16 16 Rate Blood Pressure 100/49 L 79/45 L 81/46 L O2 Saturation 99 96 99 04/24/23 04/24/23 04/24/23 14:32 14:50 15:05 Temperature 34.8 C L 35.3 C L 35.5 C L Heart Rate 77 83 87 Respiratory 16 16 16 Rate Blood Pressure 91/47 L 99/52 L 102/48 L O2 Saturation 96 94 97 04/24/23 04/24/23 15:46 15:59 Temperature 36.0 C L 36.2 C L Heart Rate 82 73 Respiratory 16 16 Rate Blood Pressure 80/48 L 89/45 L O2 Saturation 94 94 Oxygen O2 Source Room air - Labs Labs: Microbiology 04/24/23 10:42 Occult Blood - Final Stool - Loose Consistency Laboratory Tests 04/24/23 04/24/23 04/24/23 10:53 10:53 10:53 WBC 12.6 H RBC 4.16 L Hgb 11.9 L Hct 36.0 L MCV 86.5 MCH 28.6 MCHC 33.1 RDW 14.5 Plt Count 304 MPV 9.3 Neut # (Auto) 10.5 H Lymph # (Auto) 0.9 L [place] # (Auto) 1.0 Eos # (Auto) 0.1 Baso # (Auto) 0.0 Absolute Nucleated RBC 0.00 Nucleated RBC % 0.0 Sodium 129 L Potassium 4.2 Chloride 94 L Carbon Dioxide 19 L Anion Gap 16.0 H BUN 74 H Creatinine 4.4 H Estimated GFR (MDRD) 13 L Glucose 227 H Lactic Acid Calcium 9.0 Magnesium 2.1 Total Bilirubin 0.4 AST 26 ALT 15 Alkaline Phosphatase 172 H Total Protein 6.0 L Albumin 3.2 Globulin 2.8 Albumin/Globulin Ratio 1.1 Lipase 37 Urine Color Urine Clarity Urine pH Ur Specific [place] Urine Protein Urine Glucose (UA) Urine Ketones Urine Occult Blood Urine Nitrite Urine Bilirubin Urine Urobilinogen Ur Leukocyte Esterase Ur Microscopic Review Urine Culture Comments Nasal Adenovirus (PCR) Nasal B. parapertussis DNA (PCR) Nasal Coronavir 229E PCR Nasal Coronavir HKU1 PCR Nasal Coronavir NL63 PCR Nasal Coronavir OC43 PCR Nasal Enterovir/Rhinovir PCR Nasal Influenza B PCR Nasal Influenza A PCR Nasal Parainfluen 1 PCR Nasal Parainfluen 2 PCR Nasal Parainfluen 3 PCR Nasal Parainfluen 4 PCR Nasal RSV (PCR) Nasal B.pertussis DNA PCR Nasal C.pneumoniae (PCR) Steven Human Metapneumo PCR Nasal M.pneumoniae (PCR) Nasal SARS-CoV-2 (PCR) Blood Type O POSITIVE Blood Type Recheck Antibody Screen NEGATIVE 04/24/23 04/24/23 04/24/23 10:53 11:30 11:48 WBC RBC Hgb Hct MCV MCH MCHC RDW Plt Count MPV Neut # (Auto) Lymph # (Auto) [place] # (Auto) Eos # (Auto) Baso # (Auto) Absolute Nucleated RBC Nucleated RBC % Sodium Potassium Chloride Carbon Dioxide Anion Gap BUN Creatinine Estimated GFR (MDRD) Glucose Lactic Acid 2.9 H Calcium Magnesium Total Bilirubin AST ALT Alkaline Phosphatase Total Protein Albumin Globulin Albumin/Globulin Ratio Lipase Urine Color Urine Clarity Urine pH Ur Specific [place] Urine Protein Urine Glucose (UA) Urine Ketones Urine Occult Blood Urine Nitrite Urine Bilirubin Urine Urobilinogen Ur Leukocyte Esterase Ur Microscopic Review Urine Culture Comments Nasal Adenovirus (PCR) NOT DETECTED Nasal B. parapertussis DNA (PCR) NOT DETECTED Nasal Coronavir 229E PCR NOT DETECTED Nasal Coronavir HKU1 PCR NOT DETECTED Nasal Coronavir NL63 PCR NOT DETECTED Nasal Coronavir OC43 PCR NOT DETECTED Nasal Enterovir/Rhinovir PCR NOT DETECTED Nasal Influenza B PCR NOT DETECTED Nasal Influenza A PCR NOT DETECTED Nasal Parainfluen 1 PCR NOT DETECTED Nasal Parainfluen 2 PCR NOT DETECTED Nasal Parainfluen 3 PCR NOT DETECTED Nasal Parainfluen 4 PCR NOT DETECTED Nasal RSV (PCR) NOT DETECTED Nasal B.pertussis DNA PCR NOT DETECTED Nasal C.pneumoniae (PCR) NOT DETECTED Steven Human Metapneumo PCR NOT DETECTED Nasal M.pneumoniae (PCR) NOT DETECTED Nasal SARS-CoV-2 (PCR) NOT DETECTED Blood Type Blood Type Recheck O POSITIVE Antibody Screen 04/24/23 04/24/23 04/24/23 14:30 15:32 15:32 WBC RBC Hgb Hct MCV MCH MCHC RDW Plt Count MPV Neut # (Auto) Lymph # (Auto) [place] # (Auto) Eos # (Auto) Baso # (Auto) Absolute Nucleated RBC Nucleated RBC % Sodium 133 L Potassium 4.3 Chloride 102 Carbon Dioxide 15 L Anion Gap 16.0 H BUN 70 H Creatinine 4.0 H Estimated GFR (MDRD) 15 L Glucose 168 H Lactic Acid 1.1 Calcium 8.1 L Magnesium 1.9 Total Bilirubin AST ALT Alkaline Phosphatase Total Protein Albumin Globulin Albumin/Globulin Ratio Lipase Urine Color DARK YELLOW Urine Clarity CLEAR Urine pH 5.5 Ur Specific [place] >=1.030 H Urine Protein TRACE Urine Glucose (UA) NEGATIVE Urine Ketones NEGATIVE Urine Occult Blood NEGATIVE Urine Nitrite NEGATIVE Urine Bilirubin NEGATIVE Urine Urobilinogen 0.2 (NORMAL) Ur Leukocyte Esterase NEGATIVE Ur Microscopic Review NOT INDICATED Urine Culture Comments NOT INDICATED Nasal Adenovirus (PCR) Nasal B. parapertussis DNA (PCR) Nasal Coronavir 229E PCR Nasal Coronavir HKU1 PCR Nasal Coronavir NL63 PCR Nasal Coronavir OC43 PCR Nasal Enterovir/Rhinovir PCR Nasal Influenza B PCR Nasal Influenza A PCR Nasal Parainfluen 1 PCR Nasal Parainfluen 2 PCR Nasal Parainfluen 3 PCR Nasal Parainfluen 4 PCR Nasal RSV (PCR) Nasal B.pertussis DNA PCR Nasal C.pneumoniae (PCR) Steven Human Metapneumo PCR Nasal M.pneumoniae (PCR) Nasal SARS-CoV-2 (PCR) Blood Type Blood Type Recheck Antibody Screen PD Medical Decision Making - ED course Complexity details: reviewed results, considered differential (consider acute blood loss, sepsis, hypoadrenal, glucose abnormality, infectious. ), d/w patient ED course: We did get report faxed to us from [facility] about his visit from the which included the notes labs and CT scan results. There were lesions in the liver and omentum fairly consistent with malignancy. No lung masses. He did have pneumonitis on scan of the chest. 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 He and his son are both is believing that they would not want to be aggressive in treatment. The son states the patient had actually given up eating mostly this past week. Some fluid intake. General weakness. I did discuss with the patient and his son at bedside about potential treatments to include things like intubation, CPR, central line, blood transfusion and medications such as pressors and antibiotics. On the patient states he would not want to be intubated nor a central line. He felt CPR would be okay if appropriate though I told him it is typically a temporizing measure until we are able to fix something else precipitating it. He was understanding of that. He is okay with blood transfusion if needed. He is okay with various medications and diabetes and testing. He is not sure if he needed acute surgery and would need to be discussed. I talked with hsopitalist who saw the patient and got from him that he would be okay with more range of treatments including central line if needed. I talked with patient to get consent for central line and he said he would want it only if emergent and absolutely necessary. Given that his BP was improved and it is possible to continue norepi through peripheral line for 24 hours, then I could not say was absolutely needed. Pt declined for now. He is amenable to admission and current treatments. still would not want intubation as I ask him again. BP improves with the levophed infusion and fluids 3 liters. Recheck labs showing some improviement in the Creatinine and lactic acid. - Critical Care Time(min): 58 Comments: sepsis, hypotension. IV pressors and fluids, assess for POLST and goals of care with discussion pt and son. Time Includes: Direct patient care, Reassess patient, Coordinate care, Medical consult, Family consult for tx dec Data interpretation: Labs, Pulse ox, CXR Procedures excluded from critical care time: EKG Departure - Departure Disposition: 66 [facility] DC/Xfer Clinical Impression: Sepsis, Hypotension, Altered mental status, Abdominal malignancy, Acute renal f ailure Condition: Stable Record reviewed to determine appropriate education?: Yes Discharge Date/Time: 04/24/23 17:30
[2023-04-24 11:06] LABS: BASOPHILS % (AUTO) 0.2 %; EOSINOPHILS # (AUTO) 0.1 10^3/uL (0.0-0.7); EOSINOPHILS % (AUTO) 0.8 %; HGB - HEMOGLOBIN 11.9 g/dL (14.0-18.0); LYMPHOCYTES # (AUTO) 0.9 10^3/uL (1.5-3.5); LYMPHOCYTES % (AUTO) 7.3 %; MEAN CORPUSCULAR HEMOGLOBIN 28.6 pg (27.0-31.0); MEAN CORPUSCULAR HGB CONC 33.1 g/dL (32.0-36.0); MEAN CORPUSCULAR VOLUME 86.5 fL (80.0-94.0); MEAN PLATELET VOLUME 9.3 fL (7.4-11.4); MONOCYTES % (AUTO) 7.7 %; NEUTROPHILS # (AUTO) 10.5 10^3/uL (1.5-6.6); NEUTROPHILS % (AUTO) 83.4 %; PLT - PLATELET COUNT 304 10^3/uL (130-450); RED BLOOD COUNT 4.16 10^6/uL (4.70-6.10); RED CELL DISTRIBUTION WIDTH 14.5 % (12.0-15.0); WHITE BLOOD COUNT 12.6 x10^3/uL (4.8-10.8)
[2023-04-24] MEDS ORDERED: KETOROLAC 30 MG/ML VIAL IVP STA (11:15)
[2023-04-24 11:24] LABS: ALBUMIN 3.2 g/dL (3.2-5.5); MAGNESIUM 2.1 mg/dL (1.7-2.3)
[2023-04-24 11:36] LABS: ALBUMIN/GLOBULIN RATIO 1.1 (1.0-2.2); BILIRUBIN,TOTAL 0.4 mg/dL (0.2-1.0); CREATININE 4.4 mg/dL (0.6-1.3); POTASSIUM 4.2 mmol/L (3.5-4.5)
--- NOTE | 2023-04-24 11:44 | XRAY Report ---
PROCEDURE: Chest 1 View X-Ray INDICATIONS: dyspnea/syncope TECHNIQUE: One view of the chest was acquired. COMPARISON: None. FINDINGS: Surgical changes and devices: None. Lungs and pleura: No pleural effusions or pneumothorax. Lungs are clear. Mediastinum: Mediastinal contours appear normal. Heart size is enlarged. Bones and chest wall: No suspicious bony lesions. Overlying soft tissues appear unremarkable. IMPRESSION: No acute cardiopulmonary process. Cardiomegaly. Reviewed by: Jason Kirk MD on 04/24/2023 11:42 AM [facility] Approved by: Jason Kirk MD on 04/24/2023 11:42 AM [facility] Station ID: [id number]
[2023-04-24] MEDS ORDERED: NOREPINEPHRINE/0.9 % NS 8 MG/250 ML BAG IV SCH (12:00)
[2023-04-24] MEDS ORDERED: CEFEPIME 1 GM in SODIUM CHLORIDE 0.9% MINIBAG 100 ML IV STA (12:27)
[2023-04-24 12:38] LABS: CORONAVIRUS 229E-RESP PCR NOT DETECTED; CORONAVIRUS HKU1-RESP PCR NOT DETECTED; CORONAVIRUS NL63-RESP PCR NOT DETECTED; CORONAVIRUS OC43-RESP PCR NOT DETECTED; HUMAN METAPNEUMOVIRUS NOT DETECTED; INFLUENZA A- RESP PCR PANEL NOT DETECTED; INFLUENZA B - RESP PCR PANEL NOT DETECTED; PARAINFLUENZA VIRUS 1 NOT DETECTED; PARAINFLUENZA VIRUS 2 NOT DETECTED; PARAINFLUENZA VIRUS 3 NOT DETECTED; PARAINFLUENZA VIRUS 4 NOT DETECTED; RHINOVIRUS/ENTEROVIRUS NOT DETECTED; RSV- RESP PCR PANEL NOT DETECTED; SARS-CoV-2 -RESP PCR PANEL NOT DETECTED
[2023-04-24 12:39] LABS: B. PARAPERTUSSIS- RESP PCR PAN NOT DETECTED; B. PERTUSSIS- RESP PCR PANEL NOT DETECTED; C. PNEUMONIAE- RESP PCR PANEL NOT DETECTED; M. PNEUMONIAE- RESP PCR PANEL NOT DETECTED
[2023-04-24] MEDS ORDERED: DEXAMETHASONE 10 MG/ML VIAL IVP STA (12:39)
--- NOTE | 2023-04-24 14:24 | CT Report ---
PROCEDURE: ABDOMEN/PELVIS WO INDICATIONS: low BP. TECHNIQUE: A CT scan of the abdomen and pelvis was performed without the use of intravenous contrast. Images we re recorded and evaluated at appropriate window settings. Reformats: coronal and sagittal. For radiat ion dose reduction, the following was used: automated exposure control, adjustment of mA and/or kV ac cording to patient size. COMPARISON: None. FINDINGS: Image quality: Excellent. Lung bases and heart: Please see same day chest CT. Liver: Cirrhosis. Multiple liver masses are present. For instance, the 2.8 cm segment 4 lesion (serie s 2, image 36) and the 2.8 cm segment 8 lesion (series 2, image 24). Gallbladder and biliary tree: Not visualized. Spleen: No splenomegaly. Pancreas: No pancreatic ductal dilation. Adrenals: No adrenal nodule. Kidneys and ureters: No hydronephrosis. No renal cystic lesion which requires follow up. No solid mas s. Bowel and peritoneum: Moderate volume ascites. Normal clonic caliber. Fluid versus nodules within the omentum. Diverticulosis without evidence of diverticulitis. Lymph nodes: No central or retroperitoneal adenopathy. Vessels: No infrarenal aortic aneurysm. PELVIS Reproductive organs: Unremarkable. Bladder: No wall thickness, accounting for underdistention. Pelvic lymph nodes: No pelvic adenopathy by size criteria. Bones: No aggressive osseous abnormality. Other: Small umbilical hernia containing fat. IMPRESSION: Cirrhosis with moderate volume ascites. 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 Recommend further evaluation with CT or MRI (liver ma ss protocol). Reviewed by: Jason Kirk MD on 04/24/2023 2:22 PM PST Approved by: Jason Kirk MD on 04/24/2023 2:22 PM PST Station ID: [id number]
--- NOTE | 2023-04-24 14:25 | CT Report ---
PROCEDURE: CHEST WO INDICATIONS: hypotensive, ? wide mediastinum. ARF TECHNIQUE: Noncontrast 1mm axial images were acquired from the pulmonary apices to the posterior costophrenic an gles. Axial 5 mm soft tissue kernel reconstructions were performed as well as 8 mm axial MIP and cor onal and sagittal 5 mm reformations. For radiation dose reduction, the following was used: automate d exposure control, adjustment of mA and/or kV according to patient size. COMPARISON: None. FINDINGS: Image quality: Excellent. Lungs and pleura: No consolidation. No pleural effusions. No pneumothorax. No suspicious pulmonary n odules which require follow up. Focus of atelectasis in the right lower lobe. Mediastinum: Heart size is normal. No pericardial effusion. No large vessel abnormality. No mediastin al adenopathy by size criteria. Extensive coronary calcifications, with presumed stents. Chest wall and lower neck: Heterogeneous left thyroid lobe. Suspected right thyroid lobectomy. No axi llary or supraclavicular adenopathy by size. Bones: No aggressive osseous abnormality. Upper Abdomen: Please see dedicated CT. IMPRESSION: No acute abnormality. Marked coronary calcifications. Reviewed by: Jason Kirk MD on 04/24/2023 2:24 PM PST Approved by: Jason Kirk MD on 04/24/2023 2:24 PM PST Station ID: [id number]
[2023-04-24 14:47] LABS: BILIRUBIN,URINE NEGATIVE (NEGATIVE); CLARITY,URINE CLEAR (CLEAR); GLUCOSE, URINE (UA) NEGATIVE (NEGATIVE); KETONES,URINE (UA) NEGATIVE (NEGATIVE); LEUKOCYTE ESTERASE, URINE NEGATIVE (NEGATIVE); NITRITE,URINE NEGATIVE (NEGATIVE); OCCULT BLOOD,URINE NEGATIVE (NEGATIVE); PH,URINE 5.5 PH (5.0-7.5); PROTEIN,URINE TRACE mg/dL (NEGATIVE); UROBILINOGEN,URINE 0.2 (NORMAL) E.U./dL (NORMAL)
[2023-04-24 15:55] LABS: MAGNESIUM 1.9 mg/dL (1.7-2.3)
[2023-04-24 15:57] LABS: CALCIUM 8.1 mg/dL (8.5-10.3); POTASSIUM 4.3 mmol/L (3.5-4.5)
[2023-04-24] MEDS ORDERED: ONDANSETRON 4 MG/2 ML VIAL IVP PRN (16:12)
[2023-04-24] MEDS ORDERED: SODIUM CHLORIDE FLUSH 0.9% 10 ML SYRINGE IVP PRN (16:12)
--- NOTE | 2023-04-24 16:23 | HISTORY & PHYSICAL EXAMINATION ---
Chief Complaint - Chief Complaint Chief Complaint: Syncope History of Present Illness - Admitted From Admitted From:: ED - History Obtained From Records Reviewed: Yes History obtained from: Patient Exam Limitations: None - History of Present Illness HPI Comment/Other: Patient is a 67-year-old male with a past medical history of hyperlipidemia, type 2 diabetes who presented to the ED after a syncopal episode at home. Patient was recently seen at [facility] on 04/16 for chest and abdominal pain. A CT chest was done which revealed evidence of pneumonitis in his chest as well as lesions in his omentum, spleen, and liver. He stated that he has been feeling generally unwell since then and has had poor oral intake. Patient had a syncopal episode at home. He is also been having some generalized abdominal pain at home. Upon presentation to the ED he was noted to have an TYRA with a creatinine of 4.4 as well as an elevated lactic acid. He was noted to be in septic shock requiring low-dose Levophed. A CT chest abdomen pelvis was performed which showed evidence of cirrhosis with moderate volume ascites as well as multiple liver lesions concerning for hepatocellular carcinoma with satellite metastasis versus metastasis. Further evaluation with CT or MRI was recommended. He was started on IV fluids and Levophed as mentioned above in the ED as well as IV antibiotics. Repeat labs revealed an improvement in his renal function. Patient was also producing urine through his Mast catheter. He was seen to be low risk for requiring dialysis and was therefore admitted to the ICU for undifferentiated shock and TYRA. History - Past Medical History Cardiovascular: reports: Hypertension, High cholesterol, Coronary artery disease, [place] Respiratory: reports: None Neuro: reports: Other Endocrine/Autoimmune: reports: Type 2 diabetes GI: reports: Diverticulitis : reports: None HEENT: reports: Other Psych: reports: None Musculoskeletal: reports: Chronic back pain MRSA Hx?: No - Past Surgical History Ortho: reports: Carpal Tunnel surgery, Spine surgery, Other Cardiovascular: reports: Angioplasty Neuro: reports: Craniotomy, Other - POLST POLST Status: DNR (no intubation, no central line, ? compressions. Transfusion okay.) Meds/Allgy - Home Medications Home Medications: Ambulatory Orders Medication Instructions Recorded Confirmed Amlodipine Besylate 10 mg PO DAILY 02/06/14 04/24/23 Nitroglycerin [Nitrostat] 0.4 mg SL Q5MIN PRN 02/06/14 04/24/23 Rosuvastatin Calcium [Crestor] 40 mg PO DAILY 06/28/22 04/24/23 gemfibroziL [Lopid] 600 mg PO BIDAC 06/28/22 04/24/23 lisinopriL [Zestril] 5 mg PO DAILY 06/28/22 04/24/23 metFORMIN [Glucophage] 500 mg PO BIDWM 06/28/22 04/24/23 [place]-3/Dha/Epa/Fish Oil [Fish Oil 1 each PO DAILY 04/24/23 04/24/23 1,000 mg Softgel] - Allergies Allergies/Adverse Reactions: Allergies Allergy/AdvReac Type Severity Reaction Status Date / Time pollen extracts Allergy Unknown Unknown Verified 04/24/23 16:22 baclofen AdvReac Headache Verified 04/24/23 10:32 terfenadine [From Seldane] AdvReac Headache Verified 04/24/23 10:32 Review of Systems - Constitutional Constitutional: reports: Fatigue, Weakness, Poor appetite - Cardiovascular Cariovascular: reports: Syncope. denies: Chest pain, Edema, Exertional dyspnea, Orthopnea - Respiratory Respiratory: denies: Cough, Sputum production, Wheezing - Gastrointestinal Gastrointestinal: reports: Abdominal pain. denies: Abdominal distention, Black stools, Bloody stools, Coffee grounds emesis - Musculoskeletal Musculoskeletal: reports: Muscle weakness. denies: Muscle aches - Integumentary Integumentary: denies: Rash - Neurological Neurological: reports: General weakness. denies: Focal weakness, Headache, Dizziness, Numbness, Seizures, Slurred speech - All Other Systems All Other Systems: reports: Reviewed and negative Prior Level of Functionality: Independent. Exam - Vital Signs Vital Signs: Vital Signs x48h Temp Pulse Resp BP Pulse Ox 04/24/23 15:59 36.2 C L 73 16 89/45 L 94 04/24/23 15:46 36.0 C L 82 16 80/48 L 94 04/24/23 15:05 35.5 C L 87 16 102/48 L 97 04/24/23 14:50 35.3 C L 83 16 99/52 L 94 04/24/23 14:32 34.8 C L 77 16 91/47 L 96 04/24/23 14:07 73 16 81/46 L 99 04/24/23 13:56 34.8 C L 80 16 79/45 L 96 04/24/23 13:12 73 16 100/49 L 99 04/24/23 12:19 76 18 74/40 L 99 04/24/23 11:00 35.5 C L 81 22 61/39 L 97 04/24/23 10:36 35.2 C L 82 24 54/42 L 100 - Physical Exam General Appearance: positive: Moderate distress Neck: positive: Nml inspection, No JVD, Trachea midline Respiratory: positive: Chest non-tender, No respiratory distress, Breath sounds nml Cardiovascular: positive: Regular rate & rhythm, No murmur, No gallop Peripheral Pulses: positive: 2+ Abdomen: positive: Non-tender, No organomegaly Skin: positive: Pallor Extremities: positive: Non-tender, No pedal edema Sepsis Event Note (H) - Evaluation Current Stage of Sepsis: Septic shock - Sepsis Criteria Sepsis Criteria: Recorded Temperature greater than 38.3C or Less than 36C, WBC count greater than 12,000 or less than 4000, MAP less than 65 mmHg Conclusion/Plan - Problem List (1) Septic shock Conclusion/Plan: --Exact etiology of septic shock is unknown. His low blood pressure was likely the etiology of his syncopal episode. --Blood and urine cultures ordered. --Started on IV vancomycin and cefepime. --CT chest/abdomen/pelvis was unrevealing however it was noncontrasted. Can consider repeat once his renal function improves. -- Started on norepinephrine to maintain MAP greater than 65. -- Bear hugger due to hypothermia which is believed to be from underlying infection. --TTE pending. (2) TYRA (acute kidney injury) Conclusion/Plan: -- Renal function improved with IV fluids and renal perfusion with norepinephrine. --Will continue with aggressive IV hydration and monitor renal function. --We did have an in-depth discussion regarding potential need for dialysis. He is aware that there is not a dialysis unit at our hospital. However as mentioned above his renal function did improve with IV fluids and he is producing urine. Will pursue transfer if there is a need for dialysis. -- Mast catheter inserted. --Will obtain electrolytes to calculate FeNa. (3) Metastasis to liver of unknown origin Conclusion/Plan: --Liver mets noted on CT. Recommended to perform MRI to further evaluate. This can be considered as an outpatient study. (4) Lactic acidosis Conclusion/Plan: --Resolved. (5) Hypertension Conclusion/Plan: --Holding home antihypertensives. (6) Altered mental status Conclusion/Plan: --Improving. - Lab Results Lab results reviewed: Yes Hans Bones: 04/24/23 10:53 04/24/23 15:32 - Diagnostic Imaging Results Diagnostic Imaging Results: positive: Final report reviewed - Other Other Results/Comments: Critical care time 50 minutes. Core Measures - Anticipated LOS I expect patient to be DC'd or transferred within 96 hours.: Yes - DVT/VTE - Prophylaxis VTE/DVT Device ordered at admit?: Yes
[2023-04-24] MEDS ORDERED: VANCOMYCIN INJ 2 GM, VANCOMYCIN INJ 500 MG in SODIUM CHLORIDE 0.9% 500 ML IV ONE (17:00)
--- NOTE | 2023-04-24 17:29 | PHARMACY PROGRESS NOTE ---
- Therapy Status Therapy status: Awaiting steady state Basis for treatment: Empirical Treatment indication: Septic shock Trough goal: AUC/CAITIE 400-600 Concurrent antibiotics: Cefepime - TYRA Risk Risk level for Acute Kidney Injury: High Acute Kidney Injury risk factors: Baseline CrCl <50, Wt >100kg or BMI >40, Admission to ICU, Sepsis - Monitoring and Recommendation Clinical response to treatment: I&O Previous 24 hours 04/22/23 04/23/23 04/24/23 23:59 23:59 23:59 Intake Total 4177.000 Output Total 80 Balance 4097.000 Lab Results 04/24/23 04/24/23 15:32 10:53 BUN 70 H 74 H Creatinine 4.0 H 4.4 H Estimated GFR (MDRD) 15 L 13 L Cultures 04/24/23 10:42 Stool - Loose Consistency Occult Blood - Final Monitoring plan: Daily serum creatinine Areas for additional monitoring: IV to PO when appropriate, Therapy de- escalation based on culture results, Acute Kidney Injury Pharmacy recommendation: Continue current regime (Loading dose of 2.5 gm IV x 1 ordered. Will wait to place order for maintenance dose until SCr is drawn tomorrow to get a better idea of patient's CrCl and estimated half life (current SCr 4.0).)
[2023-04-24] MEDS: INSULIN LISPRO 300 UNIT/3 ML PEN SUBQ SCH ×2 (17:55→20:21)
[2023-04-24] MEDS: LACTATED RINGERS 1,000 ML IV SCH (17:55)
[2023-04-24] MEDS: SODIUM CHLORIDE FLUSH 0.9% 10 ML SYRINGE IVP SCH (18:00)
[2023-04-24] MEDS: oxyCODONE 5 MG TABLET PO PRN (19:26)
[2023-04-24] MEDS: ACETAMINOPHEN 325 MG TABLET PO PRN (19:27)
[2023-04-24] MEDS: ALBUMIN 25% 12.5 GM/50 ML VIAL IV SCH (19:29)
[2023-04-24] MEDS: NORepinephrine 8 MG in DEXTROSE 5% 250ML IV SCH ×2 (19:52→20:20)
[2023-04-24] MEDS: FAMOTIDINE 20 MG/2 ML VIAL IVP SCH (20:21)
[2023-04-24] MEDS: HEPARIN 5,000 UNIT/ML VIAL SUBQ SCH (20:22)
[2023-04-24] MEDS: traZODone 50 MG TABLET PO PRN (20:42)
[2023-04-25] MEDS: LACTATED RINGERS 1,000 ML IV SCH ×3 (01:28→09:40)
[2023-04-25] MEDS: SODIUM CHLORIDE FLUSH 0.9% 10 ML SYRINGE IVP SCH ×3 (01:29→17:45)
[2023-04-25] MEDS: ALBUMIN 25% 12.5 GM/50 ML VIAL IV SCH ×4 (01:39→21:11)
[2023-04-25] MEDS: NORepinephrine 8 MG in DEXTROSE 5% 250ML IV SCH ×2 (03:45→10:57)
[2023-04-25 05:01] LABS: VBG PH 7.331 (7.31-7.41)
[2023-04-25 05:02] LABS: CALCIUM, IONIZED 1.05 mmol/L (1.15-1.33)
[2023-04-25 05:04] LABS: BASOPHILS % (AUTO) 0.2 %; HCT - HEMATOCRIT 31.2 % (42.0-52.0); HGB - HEMOGLOBIN 10.3 g/dL (14.0-18.0); LYMPHOCYTES # (AUTO) 0.3 10^3/uL (1.5-3.5); LYMPHOCYTES % (AUTO) 2.4 %; MEAN CORPUSCULAR HEMOGLOBIN 28.5 pg (27.0-31.0); MEAN CORPUSCULAR VOLUME 86.4 fL (80.0-94.0); MONOCYTES # (AUTO) 0.5 10^3/uL (0.0-1.0); NEUTROPHILS # (AUTO) 12.4 10^3/uL (1.5-6.6); NEUTROPHILS % (AUTO) 92.8 %; PLT - PLATELET COUNT 252 10^3/uL (130-450); RED BLOOD COUNT 3.61 10^6/uL (4.70-6.10); RED CELL DISTRIBUTION WIDTH 14.3 % (12.0-15.0); WHITE BLOOD COUNT 13.3 x10^3/uL (4.8-10.8)
[2023-04-25 05:24] LABS: ALBUMIN 3.2 g/dL (3.2-5.5); MAGNESIUM 1.9 mg/dL (1.7-2.3); PHOSPHORUS 5.9 mg/dL (2.5-5.0)
[2023-04-25 05:30] LABS: ALBUMIN/GLOBULIN RATIO 1.3 (1.0-2.2); BILIRUBIN,TOTAL 0.3 mg/dL (0.2-1.0); CALCIUM 8.3 mg/dL (8.5-10.3); CREATININE 4.5 mg/dL (0.6-1.3); POTASSIUM 4.5 mmol/L (3.5-4.5); TOTAL PROTEIN 5.7 g/dL (6.4-8.9)
[2023-04-25] MEDS: HEPARIN 5,000 UNIT/ML VIAL SUBQ SCH ×2 (08:14→20:47)
[2023-04-25] MEDS: FAMOTIDINE 20 MG/2 ML VIAL IVP SCH ×2 (08:14→09:38)
[2023-04-25] MEDS: INSULIN LISPRO 300 UNIT/3 ML PEN SUBQ SCH ×4 (08:16→20:47)
[2023-04-25] MEDS: ACETAMINOPHEN 325 MG TABLET PO PRN (10:58)
[2023-04-25] MEDS: oxyCODONE 5 MG TABLET PO PRN (10:59)
--- NOTE | 2023-04-25 11:10 | PHARMACY PROGRESS NOTE ---
- Best Possible Medication History Admit Date and Time: 04/24/23 1612 Processed by: Pharmacy Medication History completed: Yes Secondary Source(s): Physician records, Insurance records As the person ultimately responsible for medication therapy, providers are able to order a medication from an existing home medication list in [facility] via the "Reconcile Routine" prior to Confirmation of that medication by developer support engineer. Such practice is discouraged except when the physician, in their clinical judgment, deems that a medical need exists for a medication without regard to previous use.
[2023-04-25] MEDS ORDERED: FUROSEMIDE 100 MG/10 ML VIAL IVP ONE (11:20)
[2023-04-25] MEDS: CEFEPIME 1 GM in SODIUM CHLORIDE 0.9% MINIBAG 100 ML IV SCH (14:31)
--- NOTE | 2023-04-25 14:47 | PROVIDER PROGRESS NOTE ---
Assessment/Plan - Problem List (1) Septic shock Assessment/Plan: (1) Septic shock Conclusion/Plan: --Exact etiology of septic shock is unknown. His low blood pressure was likely the etiology of his syncopal episode. --Blood and urine cultures ordered. --Started on IV vancomycin and cefepime. --CT chest/abdomen/pelvis was unrevealing however it was noncontrasted. Can consider repeat once his renal function improves. -- Started on norepinephrine to maintain MAP greater than 65. --TTE pending. --Refusing central line. I did make him aware of the risks of running pressors through a peripheral line including tissue necrosis. (2) TYRA (acute kidney injury) Conclusion/Plan: -- Renal function worsened overnight. He is anuric. --Extensive discussion was held with surrounding hospitals in order to attain transfer. He has been accepted to [facility] however there is no bed availability. I did speak with Dr. Oh nephrology at 1102 for recommendations. She stated that he does not need dialysis right at this moment however as his condition continues to decline he will likely need dialysis. She recommended using Lokelma if he develops hyperkalemia. She also recommended starting 1300 mg of bicarb daily. Per her recommendation, a Lasix challenge with 100 mg IV was given. Case was discussed with Dr. Dipesh Melendez at 1218 of [facility] ICU. He stated that he will accept the patient however it is pending bed availability. He is also on the CC list. (3) Metastasis to liver of unknown origin Conclusion/Plan: --Liver mets noted on CT. Recommended to perform MRI to further evaluate. This can be considered as an outpatient study. (4) Lactic acidosis Conclusion/Plan: --Resolved. (5) Hypertension Conclusion/Plan: --Holding home antihypertensives. (6) Altered mental status Conclusion/Plan: --Improving. Total critical care time 105 minutes. - Current Meds Current Meds: Current Medications Generic Name Dose Route Start Last Admin Trade Name Freq PRN Reason Stop Dose Admin Acetaminophen 650 mg 04/24/23 16:12 04/25/23 10:58 Acetaminophen 325 Mg Tablet PO 650 mg Q4HR PRN Administration Pain 1 to 4, or Fever Famotidine 20 mg 04/25/23 08:43 04/25/23 09:38 Famotidine 20 Mg/2 Ml Vial IVP Not Given DAILY ANDREA Heparin Sodium (Porcine) 5,000 unit 04/24/23 21:00 04/25/23 08:14 Heparin 5,000 Unit/Ml Vial SUBQ 5,000 unit BID ANDREA Administration Cefepime HCl 1 gm/ Sodium 100 mls @ 200 mls/hr 04/25/23 14:00 04/25/23 14:31 Chloride IV 04/30/23 14:29 200 mls/hr Q24H ANDREA Administration Norepinephrine Bitartrate 8 mg 250 mls @ 15 mls/hr 04/24/23 19:00 04/25/23 14:33 / Dextrose IV 10 mcg/min .[id number] ANDREA 18.75 mls/hr Titration Protocol 8 MCG/MIN Albumin Human 12.5 gm in 50 mls @ 50 mls/hr 04/24/23 20:00 04/25/23 14:31 Albuminar-25 IV 04/26/23 02:59 50 mls/hr Q6H ANDREA Administration Insulin Human Lispro 1 - 9 unit 04/25/23 12:27 04/25/23 12:50 Insulin Lispro 300 Unit/3 Ml Pen SUBQ 3 unit 0800,1200,1700,2100 ANDREA Administration Protocol Oxycodone HCl 5 mg 04/24/23 16:12 04/25/23 10:59 Oxycodone 5 Mg Tablet PO 5 mg Q4HR PRN Administration Pain 5 to 7 Sodium Chloride 10 ml 04/24/23 17:00 04/25/23 09:41 Sodium Chloride Flush 0.9% 10 Ml Syringe IVP 10 ml 0100,0900,1700 ANDREA Administration Trazodone HCl 100 mg 04/24/23 20:17 04/24/23 20:42 Trazodone 50 Mg Tablet PO 100 mg QPM PRN Administration Insomnia - Lab Result Fish Bone Diagrams: 04/25/23 04:45 04/25/23 04:45 - Additional Planning My Orders: My Active Orders 04/24/23 16:12 Activity Orders (ICU) [RC] Q2HR Central Line Insertion [RC] ONCE Daily Weight [RC] 0600 IO [RC] Q1HR Initiate Bowel Care Protocol [RC] QSHIFT Initiate Bronchodialator Elaina [RC] .PROTOCOL Initiate ICU Electrolyte Prot. [RC] .protocol Initiate Line Care Protocol [RC] .protocol Initiate Line Care Protocol [RC] .protocol Initiate Personal Care Protoco [RC] .protocol Initiate Progressive Mobility Protocol [RC] 0800,2000 Vital Signs [RC] Q1H Acetaminophen [Tylenol] 650 mg PO Q4HR PRN Ondansetron Inj [Zofran Inj] 4 mg IVP Q6HR PRN Sodium Chloride Flush 0.9% [Normal Saline Flush 0.9%] 10 ml IVP PRN PRN oxyCODONE [Roxicodone] 5 mg PO Q4HR PRN Code Status [OTHERS] Routine Condition of Patient [OTHERS] Routine DVT Prophylaxis [OTHERS] Routine 04/24/23 16:13 Oxygen Therapy [RC] .PRN Telemetry- [RC] Q4HR 04/24/23 Dinner Regular Diet [DIET] 04/24/23 16:18 Blood Glucose Checks - Eating [RC] 0800,1200,1700,2100 Initiate Hypoglycemia Protocol [RC] .protocol Nutrition Consult [CONS] Routine 04/24/23 17:00 Sodium Chloride Flush 0.9% [Normal Saline Flush 0.9%] 10 ml IVP 0100,0900,1700 04/24/23 19:00 Dextrose 5% [D5w] 242 ml NORepinephrine [Levophed] 8 mg IV 8 mcg/min 04/24/23 20:00 Albumin 25% [Albuminar-25] 12.5 gm in 50 ml IV Q6H 04/24/23 21:00 Heparin [Heparin Sodium (Porcine)] 5,000 unit SUBQ BID 04/25/23 08:00 Echo Transthoracic Complete [ECHO] Stat 04/25/23 08:43 Famotidine [Pepcid] 20 mg IVP DAILY 04/25/23 12:27 Insulin Lispro [Humalog Kwikpen U-100] 1 - 9 unit SUBQ 0800,1200,1700,2100 04/25/23 14:00 Cefepime [Maxipime] 1 gm Sodium Chloride 0.9% Minibag [Normal Saline 0.9% Minibag] 100 ml IV Q24H 04/25/23 21:00 Sodium Bicarbonate 650 mg PO BID 04/26/23 05:00 CBC - COMP BLD CT W/AUTO DIFF [HEME] DAILYLAB COMPREHENSIVE METABOLIC PANEL [CHEM] DAILYLAB 04/27/23 05:00 CBC - COMP BLD CT W/AUTO DIFF [HEME] DAILYLAB COMPREHENSIVE METABOLIC PANEL [CHEM] DAILYLAB 04/28/23 05:00 CBC - COMP BLD CT W/AUTO DIFF [HEME] DAILYLAB COMPREHENSIVE METABOLIC PANEL [CHEM] DAILYLAB 04/29/23 05:00 CBC - COMP BLD CT W/AUTO DIFF [HEME] DAILYLAB COMPREHENSIVE METABOLIC PANEL [CHEM] DAILYLAB 04/30/23 05:00 CBC - COMP BLD CT W/AUTO DIFF [HEME] DAILYLAB COMPREHENSIVE METABOLIC PANEL [CHEM] DAILYLAB 05/01/23 05:00 CBC - COMP BLD CT W/AUTO DIFF [HEME] DAILYLAB COMPREHENSIVE METABOLIC PANEL [CHEM] DAILYLAB Subjective - Subjective Patient Reports: Feeling Better, Resting Comfortably, No Complaints (Subjectively patient is feeling better. He is not encephalopathic. He denies any chest or abdominal pain. He is currently not making any urine. We did have a discussion regarding central line placement. He continues to refuse at this time. I did make him aware of the risk including tissue necr) Objective Vital Signs: Vital Signs - 24 hr 04/24/23 04/24/23 04/24/23 14:50 15:05 15:46 Temperature 35.3 C L 35.5 C L 36.0 C L Heart Rate 83 87 82 Heart Rate [ Monitoring electrodes] Respiratory 16 16 16 Rate Blood Pressure 99/52 L 102/48 L 80/48 L Blood Pressure [Left Brachial artery] Blood Pressure [Right Brachial artery] O2 Saturation 94 97 94 04/24/23 04/24/23 04/24/23 15:59 16:27 17:25 Temperature 36.2 C L 36.6 C 37.1 C Heart Rate 73 86 70 Heart Rate [ Monitoring electrodes] Respiratory 16 20 16 Rate Blood Pressure 89/45 L 101/56 L 91/50 L Blood Pressure [Left Brachial artery] Blood Pressure [Right Brachial artery] O2 Saturation 94 96 99 04/24/23 04/24/23 04/24/23 17:45 18:00 19:00 Temperature 37.4 C 37.2 C Heart Rate Heart Rate [ 87 86 86 Monitoring electrodes] Respiratory 19 20 17 Rate Blood Pressure Blood Pressure [Left Brachial artery] Blood Pressure 100/55 L 102/51 L 104/54 L [Right Brachial artery] O2 Saturation 96 97 98 04/24/23 04/24/23 04/24/23 20:00 21:00 22:00 Temperature 37.1 C 37.1 C 37.2 C Heart Rate Heart Rate [ 82 77 65 Monitoring electrodes] Respiratory 12 15 12 Rate Blood Pressure Blood Pressure [Left Brachial artery] Blood Pressure 112/55 L 116/58 L 97/50 L [Right Brachial artery] O2 Saturation 100 98 96 04/24/23 04/25/23 04/25/23 23:00 00:00 01:00 Temperature 37.2 C 37.1 C 37.1 C Heart Rate Heart Rate [ 75 75 77 Monitoring electrodes] Respiratory 15 14 11 L Rate Blood Pressure Blood Pressure [Left Brachial artery] Blood Pressure 113/57 L 102/53 L 96/52 L [Right Brachial artery] O2 Saturation 96 96 95 04/25/23 04/25/23 04/25/23 02:00 03:00 04:00 Temperature 37.2 C 37.2 C Heart Rate Heart Rate [ 65 76 73 Monitoring electrodes] Respiratory 11 L 12 16 Rate Blood Pressure Blood Pressure [Left Brachial artery] Blood Pressure 101/58 L 108/56 L 106/55 L [Right Brachial artery] O2 Saturation 95 95 95 04/25/23 04/25/23 04/25/23 05:00 06:00 07:00 Temperature 37.0 C 37.0 C 36.8 C Heart Rate Heart Rate [ 78 75 75 Monitoring electrodes] Respiratory 14 17 18 Rate Blood Pressure Blood Pressure [Left Brachial artery] Blood Pressure 112/57 L 107/59 L 118/59 L [Right Brachial artery] O2 Saturation 97 99 99 04/25/23 04/25/23 04/25/23 08:00 09:00 10:00 Temperature Heart Rate Heart Rate [ 75 70 75 Monitoring electrodes] Respiratory 15 17 14 Rate Blood Pressure Blood Pressure 121/59 L 123/60 [Left Brachial artery] Blood Pressure 116/57 L [Right Brachial artery] O2 Saturation 99 100 99 04/25/23 04/25/23 04/25/23 11:00 12:00 13:00 Temperature 36.4 C L 36.7 C Heart Rate Heart Rate [ 75 74 66 Monitoring electrodes] Respiratory 16 12 14 Rate Blood Pressure Blood Pressure 114/46 L 123/65 118/61 [Left Brachial artery] Blood Pressure [Right Brachial artery] O2 Saturation 99 99 97 04/25/23 14:00 Temperature Heart Rate Heart Rate [ 73 Monitoring electrodes] Respiratory 12 Rate Blood Pressure Blood Pressure 110/55 L [Left Brachial artery] Blood Pressure [Right Brachial artery] O2 Saturation 97 Oxygen O2 Source Room air I&O (Last 24 Hrs): Intake and Output Totals x24h 04/23/23 04/24/23 04/25/23 23:59 23:59 23:59 Intake Total 4987.500 2892.562 Output Total 199 141 Balance 4788.500 2751.562 General: Alert, Oriented x3, Cooperative, No acute distress Neuro: Alert, CN 2-12 Grossly Intact, Oriented Times 3 Cardiovascular: Regular rate, Normal S1, Normal S2, No murmurs Respiratory: Chest non-tender, No respiratory distress, Breath sounds nml Abdomen: Normal bowel sounds, Soft, No tenderness, No hepatospenomegaly, No masses Extremities: No clubbing, No cyanosis, No edema, Normal pulses, No tendernes s/swelling - Results Results: Laboratory Results WBC 13.3 x10^3/uL (4.8-10.8) H 04/25/23 04:45 RBC 3.61 10^6/uL (4.70-6.10) L 04/25/23 04:45 Hgb 10.3 g/dL (14.0-18.0) L 04/25/23 04:45 Hct 31.2 % (42.0-52.0) L 04/25/23 04:45 MCV 86.4 fL (80.0-94.0) 04/25/23 04:45 MCH 28.5 pg (27.0-31.0) 04/25/23 04:45 MCHC 33.0 g/dL (32.0-36.0) 04/25/23 04:45 RDW 14.3 % (12.0-15.0) 04/25/23 04:45 Plt Count 252 10^3/uL (130-450) 04/25/23 04:45 MPV 9.0 fL (7.4-11.4) 04/25/23 04:45 Neut # (Auto) 12.4 10^3/uL (1.5-6.6) H 04/25/23 04:45 Lymph # (Auto) 0.3 10^3/uL (1.5-3.5) L 04/25/23 04:45 [place] # (Auto) 0.5 10^3/uL (0.0-1.0) 04/25/23 04:45 Eos # (Auto) 0.0 10^3/uL (0.0-0.7) 04/25/23 04:45 Baso # (Auto) 0.0 10^3/uL (0.0-0.1) 04/25/23 04:45 Absolute Nucleated RBC 0.00 x10^3/uL 04/25/23 04:45 Nucleated RBC % 0.0 /100WBC 04/25/23 04:45 VBG pH 7.331 (7.31-7.41) 04/25/23 04:45 Ionized Calcium 1.05 mmol/L (1.15-1.33) L 04/25/23 04:45 Sodium 130 mmol/L (135-145) L 04/25/23 04:45 Potassium 4.5 mmol/L (3.5-4.5) 04/25/23 04:45 Chloride 100 mmol/L (101-111) L 04/25/23 04:45 Carbon Dioxide 13 mmol/L (21-32) L 04/25/23 04:45 Anion Gap 17.0 (6-13) H 04/25/23 04:45 BUN 70 mg/dL (6-20) H 04/25/23 04:45 Creatinine 4.5 mg/dL (0.6-1.3) H 04/25/23 04:45 Estimated GFR (MDRD) 13 (>89) L 04/25/23 04:45 Glucose 211 mg/dL (74-104) H 04/25/23 04:45 Lactic Acid 1.1 mmol/L (0.5-2.2) 04/24/23 15:32 Calcium 8.3 mg/dL (8.5-10.3) L 04/25/23 04:45 Phosphorus 5.9 mg/dL (2.5-5.0) H 04/25/23 04:45 Magnesium 1.9 mg/dL (1.7-2.3) 04/25/23 04:45 Total Bilirubin 0.3 mg/dL (0.2-1.0) 04/25/23 04:45 AST 19 IU/L (10-42) 04/25/23 04:45 ALT 12 IU/L (10-60) 04/25/23 04:45 Alkaline Phosphatase 146 IU/L (42-121) H 04/25/23 04:45 Ammonia 24.3 umol/L (18-72) 04/25/23 04:45 Total Protein 5.7 g/dL (6.4-8.9) L 04/25/23 04:45 Albumin 3.2 g/dL (3.2-5.5) 04/25/23 04:45 Globulin 2.5 g/dL (2.1-4.2) 04/25/23 04:45 Albumin/Globulin Ratio 1.3 (1.0-2.2) 04/25/23 04:45 Lipase 37 U/L (11-82) 04/24/23 10:53 Urine Color DARK YELLOW 04/24/23 14:30 Urine Clarity CLEAR (CLEAR) 04/24/23 14:30 Urine pH 5.5 PH (5.0-7.5) 04/24/23 14:30 Ur Specific [place] >=1.030 (1.002-1.030) H 04/24/23 14:30 Urine Protein TRACE mg/dL (NEGATIVE) 04/24/23 14:30 Urine Glucose (UA) NEGATIVE mg/dL (NEGATIVE) 04/24/23 14:30 Urine Ketones NEGATIVE mg/dL (NEGATIVE) 04/24/23 14:30 Urine Occult Blood NEGATIVE (NEGATIVE) 04/24/23 14:30 Urine Nitrite NEGATIVE (NEGATIVE) 04/24/23 14:30 Urine Bilirubin NEGATIVE (NEGATIVE) 04/24/23 14:30 Urine Urobilinogen 0.2 (NORMAL) E.U./dL (NORMAL) 04/24/23 14:30 Ur Leukocyte Esterase NEGATIVE (NEGATIVE) 04/24/23 14:30 Ur Microscopic Review NOT INDICATED 04/24/23 14:30 Urine Culture Comments NOT INDICATED 04/24/23 14:30 Urine Creatinine 242.6 mg/dL 04/24/23 17:57 Urine Sodium 13.4 mmol/L 04/24/23 17:57 Nasal Adenovirus (PCR) NOT DETECTED 04/24/23 11:30 Nasal B. parapertussis DNA (PCR) NOT DETECTED 04/24/23 11:30 Nasal Coronavir 229E PCR NOT DETECTED 04/24/23 11:30 Nasal Coronavir HKU1 PCR NOT DETECTED 04/24/23 11:30 Nasal Coronavir NL63 PCR NOT DETECTED 04/24/23 11:30 Nasal Coronavir OC43 PCR NOT DETECTED 04/24/23 11:30 Nasal Enterovir/Rhinovir PCR NOT DETECTED 04/24/23 11:30 Nasal Influenza B PCR NOT DETECTED 04/24/23 11:30 Nasal Influenza A PCR NOT DETECTED 04/24/23 11:30 Nasal Parainfluen 1 PCR NOT DETECTED 04/24/23 11:30 Nasal Parainfluen 2 PCR NOT DETECTED 04/24/23 11:30 Nasal Parainfluen 3 PCR NOT DETECTED 04/24/23 11:30 Nasal Parainfluen 4 PCR NOT DETECTED 04/24/23 11:30 Nasal RSV (PCR) NOT DETECTED 04/24/23 11:30 Nasal Screen MRSA (PCR) NEGATIVE (NEGATIVE) 04/24/23 17:44 Nasal B.pertussis DNA PCR NOT DETECTED 04/24/23 11:30 Nasal C.pneumoniae (PCR) NOT DETECTED 04/24/23 11:30 Steven Human Metapneumo PCR NOT DETECTED 04/24/23 11:30 Nasal M.pneumoniae (PCR) NOT DETECTED 04/24/23 11:30 Nasal SARS-CoV-2 (PCR) NOT DETECTED 04/24/23 11:30 Blood Type O POSITIVE 04/24/23 10:53 Blood Type Recheck O POSITIVE 04/24/23 11:48 Antibody Screen NEGATIVE 04/24/23 10:53 - Procedures Procedures: Procedures INSPECTION OF LOWER INTESTINAL TRACT, ENDO (11/27/19) Sepsis Event Note (H) - Evaluation Current Stage of Sepsis: Septic shock - Sepsis Criteria Sepsis Criteria: Recorded Temperature greater than 38.3C or Less than 36C, WBC count greater than 12,000 or less than 4000, MAP less than 65 mmHg Current Medications - Current Medications Current Medications: Active Medications Generic Name Dose Route Start Last Admin Trade Name Freq PRN Reason Stop Dose Admin Acetaminophen 650 mg 04/24/23 16:12 04/25/23 10:58 Acetaminophen 325 Mg Tablet PO 650 mg Q4HR PRN Administration Pain 1 to 4, or Fever Famotidine 20 mg 04/25/23 08:43 04/25/23 09:38 Famotidine 20 Mg/2 Ml Vial IVP Not Given DAILY [facility] Heparin Sodium (Porcine) 5,000 unit 04/24/23 21:00 04/25/23 08:14 Heparin 5,000 Unit/Ml Vial SUBQ 5,000 unit BID ANDREA Administration Cefepime HCl 1 gm/ Sodium 100 mls @ 200 mls/hr 04/25/23 14:00 04/25/23 14:31 Chloride IV 04/30/23 14:29 200 mls/hr Q24H ANDREA Administration Norepinephrine Bitartrate 8 mg 250 mls @ 15 mls/hr 04/24/23 19:00 04/25/23 14:33 / Dextrose IV 10 mcg/min .[id number] ANDREA 18.75 mls/hr Titration Protocol 8 MCG/MIN Albumin Human 12.5 gm in 50 mls @ 50 mls/hr 04/24/23 20:00 04/25/23 14:31 Albuminar-25 IV 04/26/23 02:59 50 mls/hr Q6H ANDREA Administration Insulin Human Lispro 1 - 9 unit 04/25/23 12:27 04/25/23 12:50 Insulin Lispro 300 Unit/3 Ml Pen SUBQ 3 unit 0800,1200,1700,2100 ANDREA Administration Protocol Ondansetron HCl 4 mg 04/24/23 16:12 Ondansetron 4 Mg/2 Ml Vial IVP Q6HR PRN Nausea / Vomiting Oxycodone HCl 5 mg 04/24/23 16:12 04/25/23 10:59 Oxycodone 5 Mg Tablet PO 5 mg Q4HR PRN Administration Pain 5 to 7 Sodium Bicarbonate 650 mg 04/25/23 21:00 Sodium Bicarbonate 650 Mg Tablet PO BID ANDREA Sodium Chloride 10 ml 04/24/23 17:00 04/25/23 09:41 Sodium Chloride Flush 0.9% 10 Ml Syringe IVP 10 ml 0100,0900,1700 ANDREA Administration Sodium Chloride 10 ml 04/24/23 16:12 Sodium Chloride Flush 0.9% 10 Ml Syringe IVP PRN PRN NEEDED PER PROVIDER ORDERS Trazodone HCl 100 mg 04/24/23 20:17 04/24/23 20:42 Trazodone 50 Mg Tablet PO 100 mg QPM PRN Administration Insomnia Amlodipine Besylate 10 mg PO QPM 02/06/14 Nitroglycerin [Nitrostat] 0.4 mg SL Q5MIN PRN 02/06/14 Rosuvastatin Calcium [Crestor] 40 mg PO DAILY 06/28/22 gemfibroziL [Lopid] 600 mg PO BIDAC 06/28/22 lisinopriL [Zestril] 5 mg PO DAILY 06/28/22 metFORMIN [Glucophage] 500 mg PO BIDWM 06/28/22 [place]-3/Dha/Epa/Fish Oil [Fish Oil 1,000 mg Softgel] 1 each PO DAILY 04/24/23 Acetaminophen [Tylenol] 650 mg PO Q6H PRN 04/25/23
[2023-04-25] MEDS: SODIUM BICARBONATE 650 MG TABLET PO SCH (20:51)
[2023-04-25] MEDS: traZODone 50 MG TABLET PO PRN (23:22)
[2023-04-26] MEDS: ALBUMIN 25% 12.5 GM/50 ML VIAL IV SCH (01:50)
[2023-04-26] MEDS: SODIUM CHLORIDE FLUSH 0.9% 10 ML SYRINGE IVP SCH ×3 (01:50→17:06)
[2023-04-26 04:38] LABS: EOSINOPHILS % (AUTO) 0.4 %; HCT - HEMATOCRIT 28.9 % (42.0-52.0); HGB - HEMOGLOBIN 9.3 g/dL (14.0-18.0); LYMPHOCYTES # (AUTO) 0.5 10^3/uL (1.5-3.5); LYMPHOCYTES % (AUTO) 6.3 %; MEAN CORPUSCULAR HEMOGLOBIN 28.1 pg (27.0-31.0); MEAN CORPUSCULAR HGB CONC 32.2 g/dL (32.0-36.0); MEAN CORPUSCULAR VOLUME 87.3 fL (80.0-94.0); MONOCYTES # (AUTO) 0.6 10^3/uL (0.0-1.0); MONOCYTES % (AUTO) 7.5 %; NEUTROPHILS # (AUTO) 7.1 10^3/uL (1.5-6.6); NEUTROPHILS % (AUTO) 85.6 %; PLT - PLATELET COUNT 187 10^3/uL (130-450); RED BLOOD COUNT 3.31 10^6/uL (4.70-6.10); RED CELL DISTRIBUTION WIDTH 14.3 % (12.0-15.0); WHITE BLOOD COUNT 8.4 x10^3/uL (4.8-10.8)
[2023-04-26] MEDS: NORepinephrine 8 MG in DEXTROSE 5% 250ML IV SCH ×2 (04:50→21:03)
[2023-04-26 04:51] LABS: ALBUMIN 3.4 g/dL (3.2-5.5); ALBUMIN/GLOBULIN RATIO 1.6 (1.0-2.2); BILIRUBIN,TOTAL 0.3 mg/dL (0.2-1.0); CALCIUM 8.1 mg/dL (8.5-10.3); CREATININE 4.7 mg/dL (0.6-1.3); POTASSIUM 3.8 mmol/L (3.5-4.5); TOTAL PROTEIN 5.5 g/dL (6.4-8.9)
[2023-04-26 04:59] LABS: CALCIUM, IONIZED 1.08 mmol/L (1.15-1.33); VBG PH 7.356 (7.31-7.41)
[2023-04-26 05:04] LABS: MAGNESIUM 1.8 mg/dL (1.7-2.3)
[2023-04-26] MEDS: oxyCODONE 5 MG TABLET PO PRN ×2 (06:10→13:23)
[2023-04-26] MEDS: SODIUM BICARBONATE 650 MG TABLET PO SCH ×2 (08:21→20:28)
[2023-04-26] MEDS: FAMOTIDINE 20 MG/2 ML VIAL IVP SCH (08:22)
[2023-04-26] MEDS: HEPARIN 5,000 UNIT/ML VIAL SUBQ SCH ×2 (08:23→20:35)
[2023-04-26] MEDS: INSULIN LISPRO 300 UNIT/3 ML PEN SUBQ SCH ×4 (08:23→20:35)
--- NOTE | 2023-04-26 11:44 | PROVIDER PROGRESS NOTE ---
Assessment/Plan - Problem List (1) Septic shock Assessment/Plan: (1) Septic shock Conclusion/Plan: --Exact etiology of septic shock is unknown. His low blood pressure was likely the etiology of his syncopal episode. --Blood and urine cultures ordered. NGTD. --Stop Vancomycin and continue cefepime. --CT chest/abdomen/pelvis was unrevealing however it was noncontrasted. Can consider repeat once his renal function improves. -- Started on norepinephrine to maintain MAP greater than 65. --TTE pending to rule out cardiogenic etiology. --Refusing central line. I did make him aware of the risks of running pressors through a peripheral line including tissue necrosis. (2) TYRA (acute kidney injury) Conclusion/Plan: --Etiology likely ATN from hypoperfusion. --Monitoring acid base status. Remains oliguric. --Avoiding acidosis and hyperkalemia. --Extensive discussion was held with surrounding hospitals in order to attain transfer on 04/25/23. He has been accepted to [facility] however there is no bed availability. I did speak with Dr. Oh nephrology at 1102 for recommendations. She stated that he does not need dialysis right at this moment however as his condition continues to decline he will likely need dialysis. She recommended using Lokelma if he develops hyperkalemia. She also recommended starting 1300 mg of bicarb daily. Per her recommendation, a Lasix challenge with 100 mg IV was given. Case was discussed with Dr. Dipesh Melendez at 1218 of [facility] ICU. He stated that he will accept the patient however it is pending bed availability. He is also on the CC list. (3) Metastasis to liver of unknown origin Conclusion/Plan: --Liver mets noted on CT. Recommended to perform MRI to further evaluate. This can be considered as an outpatient study. (4) Lactic acidosis Conclusion/Plan: --Resolved. (5) Hypertension Conclusion/Plan: --Holding home antihypertensives. (6) Altered mental status Conclusion/Plan: --Improving. Total CCT 40 mins. - Current Meds Current Meds: Current Medications Generic Name Dose Route Start Last Admin Trade Name Freq PRN Reason Stop Dose Admin Acetaminophen 650 mg 04/24/23 16:12 04/25/23 10:58 Acetaminophen 325 Mg Tablet PO 650 mg Q4HR PRN Administration Pain 1 to 4, or Fever Famotidine 20 mg 04/25/23 08:43 04/26/23 08:22 Famotidine 20 Mg/2 Ml Vial IVP 20 mg DAILY ANDREA Administration Heparin Sodium (Porcine) 5,000 unit 04/24/23 21:00 04/26/23 08:23 Heparin 5,000 Unit/Ml Vial SUBQ 5,000 unit BID ANDREA Administration Cefepime HCl 1 gm/ Sodium 100 mls @ 200 mls/hr 04/25/23 14:00 04/25/23 15:05 Chloride IV 04/30/23 14:29 Infused Q24H [facility] Infusion Norepinephrine Bitartrate 8 mg 250 mls @ 15 mls/hr 04/24/23 19:00 04/26/23 09:00 / Dextrose IV 8 mcg/min .[id number] ANDREA 15 mls/hr Titration Protocol 8 MCG/MIN Insulin Human Lispro 1 - 9 unit 04/25/23 12:27 04/26/23 08:23 Insulin Lispro 300 Unit/3 Ml Pen SUBQ Not Given 0800,1200,1700,2100 [facility] Protocol Oxycodone HCl 5 mg 04/24/23 16:12 04/26/23 06:10 Oxycodone 5 Mg Tablet PO 5 mg Q4HR PRN Administration Pain 5 to 7 Sodium Bicarbonate 650 mg 04/25/23 21:00 04/26/23 08:21 Sodium Bicarbonate 650 Mg Tablet PO 650 mg BID ANDREA Administration Sodium Chloride 10 ml 04/24/23 17:00 04/26/23 08:23 Sodium Chloride Flush 0.9% 10 Ml Syringe IVP 10 ml 0100,0900,1700 [facility] Administration Trazodone HCl 100 mg 04/24/23 20:17 04/25/23 23:22 Trazodone 50 Mg Tablet PO 100 mg QPM PRN Administration Insomnia - Lab Result Fish Bone Diagrams: 04/26/23 04:13 04/26/23 04:13 - Additional Planning My Orders: My Active Orders 04/25/23 12:27 Insulin Lispro [Humalog Kwikpen U-100] 1 - 9 unit SUBQ 0800,1200,1700,2100 04/25/23 14:00 Cefepime [Maxipime] 1 gm Sodium Chloride 0.9% Minibag [Normal Saline 0.9% Minibag] 100 ml IV Q24H 04/25/23 21:00 Sodium Bicarbonate 650 mg PO BID 04/26/23 Palliative Care Consult [CONS] Routine 04/27/23 05:00 CBC - COMP BLD CT W/AUTO DIFF [HEME] DAILYLAB COMPREHENSIVE METABOLIC PANEL [CHEM] DAILYLAB 04/28/23 05:00 CBC - COMP BLD CT W/AUTO DIFF [HEME] DAILYLAB COMPREHENSIVE METABOLIC PANEL [CHEM] DAILYLAB 04/29/23 05:00 CBC - COMP BLD CT W/AUTO DIFF [HEME] DAILYLAB COMPREHENSIVE METABOLIC PANEL [CHEM] DAILYLAB 04/30/23 05:00 CBC - COMP BLD CT W/AUTO DIFF [HEME] DAILYLAB COMPREHENSIVE METABOLIC PANEL [CHEM] DAILYLAB 05/01/23 05:00 CBC - COMP BLD CT W/AUTO DIFF [HEME] DAILYLAB COMPREHENSIVE METABOLIC PANEL [CHEM] DAILYLAB Subjective - Subjective Patient Reports: Feeling Better (No acute complaints. Does appear to have abdominal distension, likely ascites. Will hold off on paracentesis until renal function is more stable.), Resting Comfortably, No Complaints Objective Vital Signs: Vital Signs - 24 hr 04/25/23 04/25/23 04/25/23 12:00 13:00 14:00 Temperature 36.7 C Heart Rate [ 74 66 73 Monitoring electrodes] Respiratory 12 14 12 Rate Blood Pressure 123/65 118/61 110/55 L [Left Brachial artery] Blood Pressure [Right Brachial artery] O2 Saturation 99 97 97 04/25/23 04/25/23 04/25/23 15:00 16:00 17:00 Temperature 36.5 C 36.4 C L Heart Rate [ 69 77 75 Monitoring electrodes] Respiratory 14 18 14 Rate Blood Pressure 110/59 L 110/60 [Left Brachial artery] Blood Pressure [Right Brachial artery] O2 Saturation 98 96 97 04/25/23 04/25/23 04/25/23 18:00 20:00 21:00 Temperature 36.5 C 36.5 C 36.4 C L Heart Rate [ 71 71 72 Monitoring electrodes] Respiratory 15 22 13 Rate Blood Pressure 109/68 105/59 L 103/59 L [Left Brachial artery] Blood Pressure [Right Brachial artery] O2 Saturation 98 100 100 04/25/23 04/25/23 04/26/23 22:00 23:00 00:00 Temperature 36.4 C L 36.5 C 36.5 C Heart Rate [ 73 72 77 Monitoring electrodes] Respiratory 15 12 12 Rate Blood Pressure 105/57 L 111/55 L 111/56 L [Left Brachial artery] Blood Pressure [Right Brachial artery] O2 Saturation 98 100 98 04/26/23 04/26/23 04/26/23 01:00 02:00 03:00 Temperature 36.6 C 36.5 C Heart Rate [ 74 72 67 Monitoring electrodes] Respiratory 12 12 11 L Rate Blood Pressure 103/51 L 97/53 L 93/57 L [Left Brachial artery] Blood Pressure [Right Brachial artery] O2 Saturation 98 97 96 04/26/23 04/26/23 04/26/23 04:00 05:00 06:00 Temperature 36.5 C 36.4 C L Heart Rate [ 72 74 72 Monitoring electrodes] Respiratory 14 13 15 Rate Blood Pressure 97/53 L 91/50 L 100/52 L [Left Brachial artery] Blood Pressure [Right Brachial artery] O2 Saturation 98 96 97 04/26/23 04/26/23 04/26/23 07:00 08:00 09:00 Temperature 36.4 C L Heart Rate [ 79 72 70 Monitoring electrodes] Respiratory 14 12 16 Rate Blood Pressure 98/57 L 101/55 L 94/51 L [Left Brachial artery] Blood Pressure [Right Brachial artery] O2 Saturation 97 96 97 04/26/23 04/26/23 10:00 11:00 Temperature 36.4 C L Heart Rate [ 74 61 Monitoring electrodes] Respiratory 9 L 13 Rate Blood Pressure 98/52 L [Left Brachial artery] Blood Pressure 93/51 L [Right Brachial artery] O2 Saturation 96 97 Oxygen O2 Source Room air I&O (Last 24 Hrs): Intake and Output Totals x24h 04/24/23 04/25/23 04/26/23 23:59 23:59 23:59 Intake Total 4987.500 3909.375 207.750 Output Total 199 671 497 Balance 4788.500 3238.375 -289.250 General: Alert, Oriented x3, Cooperative HEENT: Atraumatic Neuro: Alert, Focal Deficits Cardiovascular: Regular rate, Normal S1, Normal S2 Respiratory: Chest non-tender, No respiratory distress, Breath sounds nml Abdomen: Normal bowel sounds, Other (Distension, likley ascites.) - Results Results: Laboratory Results WBC 8.4 x10^3/uL (4.8-10.8) 04/26/23 04:13 RBC 3.31 10^6/uL (4.70-6.10) L 04/26/23 04:13 Hgb 9.3 g/dL (14.0-18.0) L 04/26/23 04:13 Hct 28.9 % (42.0-52.0) L 04/26/23 04:13 MCV 87.3 fL (80.0-94.0) 04/26/23 04:13 MCH 28.1 pg (27.0-31.0) 04/26/23 04:13 MCHC 32.2 g/dL (32.0-36.0) 04/26/23 04:13 RDW 14.3 % (12.0-15.0) 04/26/23 04:13 Plt Count 187 10^3/uL (130-450) 04/26/23 04:13 MPV 9.0 fL (7.4-11.4) 04/26/23 04:13 Neut # (Auto) 7.1 10^3/uL (1.5-6.6) H 04/26/23 04:13 Lymph # (Auto) 0.5 10^3/uL (1.5-3.5) L 04/26/23 04:13 [place] # (Auto) 0.6 10^3/uL (0.0-1.0) 04/26/23 04:13 Eos # (Auto) 0.0 10^3/uL (0.0-0.7) 04/26/23 04:13 Baso # (Auto) 0.0 10^3/uL (0.0-0.1) 04/26/23 04:13 Absolute Nucleated RBC 0.00 x10^3/uL 04/26/23 04:13 Nucleated RBC % 0.0 /100WBC 04/26/23 04:13 VBG pH 7.356 (7.31-7.41) 04/26/23 04:13 Ionized Calcium 1.08 mmol/L (1.15-1.33) L 04/26/23 04:13 Sodium 131 mmol/L (135-145) L 04/26/23 04:13 Potassium 3.8 mmol/L (3.5-4.5) 04/26/23 04:13 Chloride 100 mmol/L (101-111) L 04/26/23 04:13 Carbon Dioxide 18 mmol/L (21-32) L 04/26/23 04:13 Anion Gap 13.0 (6-13) 04/26/23 04:13 BUN 74 mg/dL (6-20) H 04/26/23 04:13 Creatinine 4.7 mg/dL (0.6-1.3) H 04/26/23 04:13 Estimated GFR (MDRD) 12 (>89) L 04/26/23 04:13 Glucose 135 mg/dL (74-104) H 04/26/23 04:13 Lactic Acid 1.1 mmol/L (0.5-2.2) 04/24/23 15:32 Calcium 8.1 mg/dL (8.5-10.3) L 04/26/23 04:13 Phosphorus 5.0 mg/dL (2.5-5.0) 04/26/23 04:13 Magnesium 1.8 mg/dL (1.7-2.3) 04/26/23 04:13 Total Bilirubin 0.3 mg/dL (0.2-1.0) 04/26/23 04:13 AST 15 IU/L (10-42) 04/26/23 04:13 ALT 10 IU/L (10-60) 04/26/23 04:13 Alkaline Phosphatase 126 IU/L (42-121) H 04/26/23 04:13 Ammonia 24.3 umol/L (18-72) 04/25/23 04:45 Total Protein 5.5 g/dL (6.4-8.9) L 04/26/23 04:13 Albumin 3.4 g/dL (3.2-5.5) 04/26/23 04:13 Globulin 2.1 g/dL (2.1-4.2) 04/26/23 04:13 Albumin/Globulin Ratio 1.6 (1.0-2.2) 04/26/23 04:13 Lipase 37 U/L (11-82) 04/24/23 10:53 Urine Color DARK YELLOW 04/24/23 14:30 Urine Clarity CLEAR (CLEAR) 04/24/23 14:30 Urine pH 5.5 PH (5.0-7.5) 04/24/23 14:30 Ur Specific [place] >=1.030 (1.002-1.030) H 04/24/23 14:30 Urine Protein TRACE mg/dL (NEGATIVE) 04/24/23 14:30 Urine Glucose (UA) NEGATIVE mg/dL (NEGATIVE) 04/24/23 14:30 Urine Ketones NEGATIVE mg/dL (NEGATIVE) 04/24/23 14:30 Urine Occult Blood NEGATIVE (NEGATIVE) 04/24/23 14:30 Urine Nitrite NEGATIVE (NEGATIVE) 04/24/23 14:30 Urine Bilirubin NEGATIVE (NEGATIVE) 04/24/23 14:30 Urine Urobilinogen 0.2 (NORMAL) E.U./dL (NORMAL) 04/24/23 14:30 Ur Leukocyte Esterase NEGATIVE (NEGATIVE) 04/24/23 14:30 Ur Microscopic Review NOT INDICATED 04/24/23 14:30 Urine Culture Comments NOT INDICATED 04/24/23 14:30 Urine Creatinine 242.6 mg/dL 04/24/23 17:57 Urine Sodium 13.4 mmol/L 04/24/23 17:57 Nasal Adenovirus (PCR) NOT DETECTED 04/24/23 11:30 Nasal B. parapertussis DNA (PCR) NOT DETECTED 04/24/23 11:30 Nasal Coronavir 229E PCR NOT DETECTED 04/24/23 11:30 Nasal Coronavir HKU1 PCR NOT DETECTED 04/24/23 11:30 Nasal Coronavir NL63 PCR NOT DETECTED 04/24/23 11:30 Nasal Coronavir OC43 PCR NOT DETECTED 04/24/23 11:30 Nasal Enterovir/Rhinovir PCR NOT DETECTED 04/24/23 11:30 Nasal Influenza B PCR NOT DETECTED 04/24/23 11:30 Nasal Influenza A PCR NOT DETECTED 04/24/23 11:30 Nasal Parainfluen 1 PCR NOT DETECTED 04/24/23 11:30 Nasal Parainfluen 2 PCR NOT DETECTED 04/24/23 11:30 Nasal Parainfluen 3 PCR NOT DETECTED 04/24/23 11:30 Nasal Parainfluen 4 PCR NOT DETECTED 04/24/23 11:30 Nasal RSV (PCR) NOT DETECTED 04/24/23 11:30 Nasal Screen MRSA (PCR) NEGATIVE (NEGATIVE) 04/24/23 17:44 Nasal B.pertussis DNA PCR NOT DETECTED 04/24/23 11:30 Nasal C.pneumoniae (PCR) NOT DETECTED 04/24/23 11:30 Steven Human Metapneumo PCR NOT DETECTED 04/24/23 11:30 Nasal M.pneumoniae (PCR) NOT DETECTED 04/24/23 11:30 Nasal SARS-CoV-2 (PCR) NOT DETECTED 04/24/23 11:30 Blood Type O POSITIVE 04/24/23 10:53 Blood Type Recheck O POSITIVE 04/24/23 11:48 Antibody Screen NEGATIVE 04/24/23 10:53 - Procedures Procedures: Procedures INSPECTION OF LOWER INTESTINAL TRACT, ENDO (11/27/19) Sepsis Event Note (H) - Evaluation Current Stage of Sepsis: Septic shock - Sepsis Criteria Sepsis Criteria: Recorded Temperature greater than 38.3C or Less than 36C, WBC count greater than 12,000 or less than 4000, MAP less than 65 mmHg ABX Reporting Has patient been on IV antibiotics over the past 48 hours?: Yes Current Medications - Current Medications Current Medications: Active Medications Generic Name Dose Route Start Last Admin Trade Name Freq PRN Reason Stop Dose Admin Acetaminophen 650 mg 04/24/23 16:12 04/25/23 10:58 Acetaminophen 325 Mg Tablet PO 650 mg Q4HR PRN Administration Pain 1 to 4, or Fever Famotidine 20 mg 04/25/23 08:43 04/26/23 08:22 Famotidine 20 Mg/2 Ml Vial IVP 20 mg DAILY ANDREA Administration Heparin Sodium (Porcine) 5,000 unit 04/24/23 21:00 04/26/23 08:23 Heparin 5,000 Unit/Ml Vial SUBQ 5,000 unit BID ANDREA Administration Cefepime HCl 1 gm/ Sodium 100 mls @ 200 mls/hr 04/25/23 14:00 04/25/23 15:05 Chloride IV 04/30/23 14:29 Infused Q24H ANDREA Infusion Norepinephrine Bitartrate 8 mg 250 mls @ 15 mls/hr 04/24/23 19:00 04/26/23 09:00 / Dextrose IV 8 mcg/min .[id number] ANDREA 15 mls/hr Titration Protocol 8 MCG/MIN Insulin Human Lispro 1 - 9 unit 04/25/23 12:27 04/26/23 08:23 Insulin Lispro 300 Unit/3 Ml Pen SUBQ Not Given 0800,1200,1700,2100 [facility] Protocol Ondansetron HCl 4 mg 04/24/23 16:12 Ondansetron 4 Mg/2 Ml Vial IVP Q6HR PRN Nausea / Vomiting Oxycodone HCl 5 mg 04/24/23 16:12 04/26/23 06:10 Oxycodone 5 Mg Tablet PO 5 mg Q4HR PRN Administration Pain 5 to 7 Sodium Bicarbonate 650 mg 04/25/23 21:00 04/26/23 08:21 Sodium Bicarbonate 650 Mg Tablet PO 650 mg BID ANDREA Administration Sodium Chloride 10 ml 04/24/23 17:00 04/26/23 08:23 Sodium Chloride Flush 0.9% 10 Ml Syringe IVP 10 ml 0100,0900,1700 ANDREA Administration Sodium Chloride 10 ml 04/24/23 16:12 Sodium Chloride Flush 0.9% 10 Ml Syringe IVP PRN PRN NEEDED PER PROVIDER ORDERS Trazodone HCl 100 mg 04/24/23 20:17 04/25/23 23:22 Trazodone 50 Mg Tablet PO 100 mg QPM PRN Administration Insomnia Amlodipine Besylate 10 mg PO QPM 02/06/14 Nitroglycerin [Nitrostat] 0.4 mg SL Q5MIN PRN 02/06/14 Rosuvastatin Calcium [Crestor] 40 mg PO DAILY 06/28/22 gemfibroziL [Lopid] 600 mg PO BIDAC 06/28/22 lisinopriL [Zestril] 5 mg PO DAILY 06/28/22 metFORMIN [Glucophage] 500 mg PO BIDWM 06/28/22 [place]-3/Dha/Epa/Fish Oil [Fish Oil 1,000 mg Softgel] 1 each PO DAILY 04/24/23 Acetaminophen [Tylenol] 650 mg PO Q6H PRN 04/25/23
[2023-04-26] MEDS: CEFEPIME 1 GM in SODIUM CHLORIDE 0.9% MINIBAG 100 ML IV SCH (14:36)
[2023-04-27] MEDS: SODIUM CHLORIDE FLUSH 0.9% 10 ML SYRINGE IVP SCH ×3 (01:00→17:44)
[2023-04-27 04:46] LABS: BASOPHILS % (AUTO) 0.2 %; EOSINOPHILS # (AUTO) 0.1 10^3/uL (0.0-0.7); EOSINOPHILS % (AUTO) 1.1 %; HCT - HEMATOCRIT 36.9 % (42.0-52.0); HGB - HEMOGLOBIN 11.7 g/dL (14.0-18.0); LYMPHOCYTES # (AUTO) 0.7 10^3/uL (1.5-3.5); LYMPHOCYTES % (AUTO) 6.1 %; MEAN CORPUSCULAR HEMOGLOBIN 28.3 pg (27.0-31.0); MEAN CORPUSCULAR HGB CONC 31.7 g/dL (32.0-36.0); MEAN CORPUSCULAR VOLUME 89.3 fL (80.0-94.0); MEAN PLATELET VOLUME 9.2 fL (7.4-11.4); NEUTROPHILS # (AUTO) 9.4 10^3/uL (1.5-6.6); NEUTROPHILS % (AUTO) 83.1 %; PLT - PLATELET COUNT 217 10^3/uL (130-450); RED BLOOD COUNT 4.13 10^6/uL (4.70-6.10); RED CELL DISTRIBUTION WIDTH 14.6 % (12.0-15.0); WHITE BLOOD COUNT 11.3 x10^3/uL (4.8-10.8)
[2023-04-27 04:47] LABS: CALCIUM, IONIZED 1.07 mmol/L (1.15-1.33); VBG PH 7.392 (7.31-7.41)
[2023-04-27 04:58] LABS: ALBUMIN 3.5 g/dL (3.2-5.5)
[2023-04-27] MEDS: oxyCODONE 5 MG TABLET PO PRN ×2 (05:07→20:23)
[2023-04-27 05:09] LABS: ALBUMIN/GLOBULIN RATIO 1.4 (1.0-2.2); BILIRUBIN,TOTAL 0.3 mg/dL (0.2-1.0); CALCIUM 8.7 mg/dL (8.5-10.3); CREATININE 4.6 mg/dL (0.6-1.3); POTASSIUM 3.8 mmol/L (3.5-4.5)
[2023-04-27 05:15] LABS: MAGNESIUM 1.9 mg/dL (1.7-2.3); PHOSPHORUS 4.7 mg/dL (2.5-5.0)
[2023-04-27 05:35] LABS: PLATELET ESTIMATE, MANUAL NORMAL (130-450,000) (NORMAL); PLATELET MORPHOLOGY NORMAL APPEARANCE (NORMAL)
[2023-04-27] MEDS: SODIUM BICARBONATE 650 MG TABLET PO SCH ×2 (08:15→20:23)
[2023-04-27] MEDS: FAMOTIDINE 20 MG/2 ML VIAL IVP SCH (08:15)
[2023-04-27] MEDS: ALBUMIN 25% 12.5 GM/50 ML VIAL IV SCH ×3 (08:15→20:25)
[2023-04-27] MEDS: polyethylene glycoL 3350 17 GM PACKET PO SCH (08:15)
[2023-04-27] MEDS: HEPARIN 5,000 UNIT/ML VIAL SUBQ SCH ×2 (08:16→20:37)
[2023-04-27] MEDS: INSULIN LISPRO 300 UNIT/3 ML PEN SUBQ SCH ×4 (08:16→20:26)
[2023-04-27] MEDS: NORepinephrine 8 MG in DEXTROSE 5% 250ML IV SCH (10:26)
--- NOTE | 2023-04-27 12:53 | CONSULTATION NOTE ---
Palliative Care Consultation - Referral Referring Provider: Dr. Joel Whaley Time of Visit: 9-10:30 am Referral setting: Hospitalized patient Referral Reason: Goals of CAre - Information Sources Records reviewed: RN notes reviewed, Previous records reviewed History/Review of Systems obtained from: Patient, Family (son Riley and DIL Winifred) Exam limitations: Clinical condition (patient with lethargy; fatigue) - History of Present Illness Brief History of Present Illness: This is a 67-year-old gentleman who has been admitted acutely on 04/24, for altered mental status, and syncopal episode. Patient has had several weeks of acute decline, both functionally, and fluctuating with cognitive status. Patient most recently had been at [facility], at which time he had received a CT scan, of note there was moderate ascites seen, as well as a nodular appearing liver, poorly defined density masses within the right lower and left liver, with largest measuring 2.9, on right, and largest on the left measuring 2.4 cm. Patient was in the process of getting workup to see primary care on 05/03. And ended up acutely being admitted to [facility]. Problem list included septic shock, is currently on pressors, acute kidney injury, with compromised renal status, known metastatic liver of unknown origin repeated on current CT scan, and difficulty with hypotension currently. There has been multiple concerns and questions as he has refused central line, concerned about overall prognosis in the setting of most likely metastatic or primary liver cancer, and worsening functional and cognitive status. Patient has been approached multiple times regarding central line, has been refusing, "sees this is equal to according to providers, patient has been resistant. Have offered PICC, but is getting quite tired of reapproaching this. In the setting of meeting with family, met with Riley and Winifred, with concerns regarding whether to call family or not. Patient has had over a 70 pound weight loss in this last year, perception he has been eating normally up to the last 2 or 3 weeks. Concern for malignancy, now with acute complications on top of this, not able to eat or is anorexic, and difficulty managing his blood pressure. Other question is about transfer, for further workup and support particularly in the setting of his TYRA. Please see palliative care discussion. Palliative care asked to meet with patient and family to establish rapport for further support into the outpatient setting, but also to clarify some current goals in the context of decision points. Medical/Surgical History - Past Medical History Cardiovascular: reports: Hypertension, High cholesterol, Coronary artery disease, [facility] Respiratory: reports: None Neuro: Other (hx of raditon for OS meningiom 1995; left frontal with resection) Endocrine/Autoimmune: reports: Type 2 diabetes, Other (primary hyprparathyroidism surg 08/18) GI: reports: Diverticulitis : reports: None HEENT: reports: Other Psych: reports: None Musculoskeletal: reports: Chronic back pain MRSA Hx?: No - Past Surgical History Ortho: reports: Carpal Tunnel surgery, Spine surgery, Other Cardiovascular: reports: Angioplasty Neuro: reports: Craniotomy, Other Social History - Living Situation Living arrangement: At home Living Situation: With family Support System: Has lived with Michelle for 18 years Family History - Family History Family History: Brother: Alive and Well, Alzheimer's Disease (new dx ) Medications/Allergies - Medications Active Medication List: Active Medications Acetaminophen (Acetaminophen 325 Mg Tablet) 650 mg PO Q4HR PRN PRN Reason: Pain 1 to 4, or Fever Last Admin: 04/25/23 10:58 Dose: 650 mg Famotidine (Famotidine 20 Mg/2 Ml Vial) [address] [facility] Last Admin: 04/27/23 08:15 Dose: 20 mg Heparin Sodium (Porcine) (Heparin 5,000 Unit/Ml Vial) 5,[address] [facility] Last Admin: 04/27/23 08:16 Dose: 5,000 unit Cefepime HCl 1 gm/ Sodium (Chloride) 100 mls @ 200 mls/hr IV Q24H [facility] Stop: 04/30/23 14:29 Last Infusion: 04/26/23 15:18 Dose: Infused Norepinephrine Bitartrate 8 mg (/ Dextrose) 250 mls @ 15 mls/hr IV .[id number] [facility]; Protocol Last Admin: 04/27/23 10:26 Dose: 4 mcg/min, 7.5 mls/hr Albumin Human (Albuminar-25) 12.5 gm in 50 mls @ 50 mls/hr IV Q6H [facility] Stop: 04/28/23 07:59 Last Infusion: 04/27/23 09:20 Dose: Infused Vancomycin HCl 2 gm/ Sodium (Chloride) 500 mls @ 250 mls/hr IV ONCE ONE Stop: 04/27/23 19:59 Insulin Human Lispro (Insulin Lispro 300 Unit/3 Ml Pen) 1 - 9 unit SUBQ 0800,1200,1700,2100 [facility]; Protocol Last Admin: 04/27/23 08:16 Dose: 1 unit Ondansetron HCl (Ondansetron 4 Mg/2 Ml Vial) 4 mg IVP Q6HR PRN PRN Reason: Nausea / Vomiting Oxycodone HCl (Oxycodone 5 Mg Tablet) 5 mg PO Q4HR PRN PRN Reason: Pain 5 to 7 Last Admin: 04/27/23 05:07 Dose: 5 mg Polyethylene Glycol (Polyethylene Glycol 3350 17 Gm Packet) [address] [facility] Last Admin: 04/27/23 08:15 Dose: 17 gm Sodium Bicarbonate (Sodium Bicarbonate 650 Mg Tablet) [address] [facility] Last Admin: 04/27/23 08:15 Dose: 650 mg Sodium Chloride (Sodium Chloride Flush 0.9% 10 Ml Syringe) 10 ml IVP 0100,0900,1700 [facility] Last Admin: 04/27/23 08:17 Dose: 10 ml Sodium Chloride (Sodium Chloride Flush 0.9% 10 Ml Syringe) 10 ml IVP PRN PRN PRN Reason: NEEDED PER PROVIDER ORDERS Trazodone HCl (Trazodone 50 Mg Tablet) 100 mg PO QPM PRN PRN Reason: Insomnia Last Admin: 04/25/23 23:22 Dose: 100 mg Amlodipine Besylate 10 mg PO QPM 02/06/14 Nitroglycerin [Nitrostat] 0.4 mg SL Q5MIN PRN 02/06/14 Rosuvastatin Calcium [Crestor] 40 mg PO DAILY 06/28/22 gemfibroziL [Lopid] 600 mg PO BIDAC 06/28/22 lisinopriL [Zestril] 5 mg PO DAILY 06/28/22 metFORMIN [Glucophage] 500 mg PO BIDWM 06/28/22 [place]-3/Dha/Epa/Fish Oil [Fish Oil 1,000 mg Softgel] 1 each PO DAILY 04/24/23 Acetaminophen [Tylenol] 650 mg PO Q6H PRN 04/25/23 - Allergies Allergies/Adverse Reactions: Allergies Allergy/AdvReac Type Severity Reaction Status Date / Time pollen extracts Allergy Unknown Unknown Verified 04/24/23 16:22 baclofen AdvReac Headache Verified 04/24/23 10:32 terfenadine [From Seldane] AdvReac Headache Verified 04/24/23 10:32 Review of Systems - Constitutional Constitutional: reports: Fatigue, Poor appetite, Weight loss (70 pounds 307 in May) - Ears, Nose & Throat Ears, Nose & Throat: reports: Dry mouth - Cardiovascular Cardiovascular: reports: Decr. exercise tolerance - Gastrointestinal Gastrointestinal: reports: Abdominal pain (had been experiencing of LLQ;), Poor appetite - Musculoskeletal Musculoskeletal: reports: Muscle weakness - Neurological Neurological: reports: General weakness - Psychiatric Psychiatric: reports: Depression, Anxiety - Endocrine Endocrine: reports: Diabetes type 2 Physical Exam - Vital Signs Vital Signs: Vital Signs x48h Temp Pulse Resp BP Pulse Ox 04/27/23 10:00 83 23 114/68 99 04/27/23 09:00 36.4 C L 77 13 118/60 99 04/27/23 08:00 36.4 C L 79 12 96/42 L 96 04/27/23 07:00 36.5 C 75 18 97/67 96 04/27/23 06:00 75 15 105/61 96 04/27/23 05:00 81 18 112/65 96 04/27/23 04:00 76 16 107/58 L 96 04/27/23 03:00 76 13 106/57 L 98 - Physical Exam General Appearance: positive: Anxious, Lethargic ENT: positive: Dry mucous membranes Cardiovascular: positive: Regular rate & rhythm Respiratory: positive: Other (repiratory effort with conversation; scattered wheezes anteriorly) Abdomen: positive: Obese Skin: positive: Pallor Neurologic/Psychiatric: positive: Weakness, Depressed mood/affect, Flat affect Palliative Care - POLST Patient has POLST: No Pain: No pain (denies at time of visit; son reports had been having LLQ) Tiredness/Fatigue: Severe (7-10) (for last several weeks) Anorexia: Severe (7-10), Weight loss (has not been eating or drinking for 2-3 weeks; but had been eating "normal" and still having weight loss previously) Performance Status: Patient had previous been fairly sedentary, spent most of his time in his chair, are at his computer. Walking only short distances, but was able to manage his own ADLs and drive. His functional status has declined dramatically over the last 2 to 3 weeks with acute illness, weak, difficulty walking, had been awaiti ng work up until acute episode resulting in 911 call for admit to the hospital on 04/24. - Palliative Care Discussion: Met with patient at bedside, Riley and his Winifred, his ICU nurse Cara, myself and co-worker Aries Gu [employer] SERVICE MANAGER on PC team. Established with patient's understanding of current condition, does understand he is not doing well, worried about his kidneys, liver, spleen, his blood pressures been going up and down, and concerned regarding his decreased urine output. We discussed in the context of currently do not have a definitive diagnosis, but suspicious of cancer, had been awaiting further workup. In trying to elicit patient's goals, patient is quite exhausted and fatigued and talking about this, is aware awaiting transfer, though it is unclear if he understands the implications and nuances regarding decisions currently needing to be made. Riley his son, who is his DPOA, requested conversation separate from patient, then with patient's permission and particularly about having his brother Lm come visit. Met with the above minus patient, reviewed patient actually had had significant weight loss over the year, had been declining, had gone to [place] which is where most of his family is coming to visit his brother recently diagnosed with dementia, has stayed there for a couple months, they were fairly shocked at his condition as he returned home with his weight loss. Has been trying to encourage him to go see a doctor, and then had further acute decline. Son's goals are a priority for figuring out whether his other brother should come out and visit, as well as to focus on comfort. He has come to terms with the fact his father is doing poorly.He does feel like he can participate in his decision making, though in the context of nuances and stating what his goals are, suspect that he is having difficulty processing this. We did discuss in the context of patient's current health, underlying comorbidities, and most likely given his weight loss, findings on scans, and declining health a malignancy, and concerned regarding patient's prognosis. If no treatment for a cancer with metastatic disease, is often 6 months or less, given his decline, most likely weeks to months at the most. Did recommend given the acute illness superimposed with his comorbidities that he does have his brother come out, reviewed is always best to be able to say goodbye twice rather than miss an opportunity. This was a relief of Riley to make that decision. We also discussed their experiences with end-of-life.They recently walked Winifred's mother through liver cancer who had a fairly rapid decline, as well as Riley had to make decisions for his mother around end-of-life as well. They do not feel given the current circumstances they would be able to take him home to care for him if he were to transition to comfort or hospice, and would need placement. Patient does not have resources to be able to support this, recommended we start the Medicaid process. Returned to the room, revisited our conversation with the recommendation for her son to come out, given the concern and severity regarding his weight loss and most likely serious cancer diagnosis, he very much would like to see his son Lm. Try to attempt to revisit DNR versus full code, do not feel given his current level of energy and understanding would be able to make a nuanced medical decision regarding this, patient with actually defer this decision to his son and [id number] if needed to be made regarding his end-of-life. Did try and reapproach about central line/PICC line, again given his wish to extend or do full treatment versus focus on comfort, would need that, Winifred his [id number] did speak with him and patient said he would continue to work with her later this afternoon. Spoke with Riley, he is going to follow-up with Lm's brother, recommended given the pending decisions about transfer, CODE STATUS and PICC line, they come to some agreements, again Peter goal is for his father to be comfortable and leaning towards DNAR. Provided "hard choices for [place] people" as resource. Results - Lab Results Lab results reviewed: Yes Fish Bones: 04/27/23 04:30 04/27/23 04:30 Lab and Imaging Results: Lab Results x24hrs 04/27/23 04/27/23 04/27/23 Range/Units 04:30 04:30 04:30 WBC (4.8-10.8) x10^3/uL RBC (4.70-6.10) 10^6/uL Hgb (14.0-18.0) g/dL Hct (42.0-52.0) % MCV (80.0-94.0) fL MCH (27.0-31.0) pg MCHC (32.0-36.0) g/dL RDW (12.0-15.0) % Plt Count (130-450) 10^3/uL MPV (7.4-11.4) fL Neut # (Auto) (1.5-6.6) 10^3/uL Lymph # (Auto) (1.5-3.5) 10^3/uL [place] # (Auto) (0.0-1.0) 10^3/uL Eos # (Auto) (0.0-0.7) 10^3/uL Baso # (Auto) (0.0-0.1) 10^3/uL Absolute Nucleated RBC x10^3/uL Nucleated RBC % /100WBC Platelet Estimate (NORMAL) Platelet Morphology (NORMAL) VBG pH 7.392 (7.31-7.41) Ionized Calcium 1.07 L (1.15-1.33) mmol/L Sodium 131 L (135-145) mmol/L Potassium 3.8 (3.5-4.5) mmol/L Chloride 99 L (101-111) mmol/L Carbon Dioxide 14 L (21-32) mmol/L Anion Gap 18.0 H (6-13) BUN 74 H (6-20) mg/dL Creatinine 4.6 H (0.6-1.3) mg/dL Estimated GFR (MDRD) 13 L (>89) Glucose 173 H (74-104) mg/dL Calcium 8.7 (8.5-10.3) mg/dL Phosphorus 4.7 (2.5-5.0) mg/dL Magnesium 1.9 (1.7-2.3) mg/dL Total Bilirubin 0.3 (0.2-1.0) mg/dL AST 18 (10-42) IU/L ALT 11 (10-60) IU/L Alkaline Phosphatase 149 H (42-121) IU/L Total Protein 6.0 L (6.4-8.9) g/dL Albumin 3.5 (3.2-5.5) g/dL Globulin 2.5 (2.1-4.2) g/dL Albumin/Globulin Ratio 1.4 (1.0-2.2) 04/27/23 Range/Units 04:30 WBC 11.3 H (4.8-10.8) x10^3/uL RBC 4.13 L (4.70-6.10) 10^6/uL Hgb 11.7 L (14.0-18.0) g/dL Hct 36.9 L (42.0-52.0) % MCV 89.3 (80.0-94.0) fL MCH 28.3 (27.0-31.0) pg MCHC 31.7 L (32.0-36.0) g/dL RDW 14.6 (12.0-15.0) % Plt Count 217 (130-450) 10^3/uL MPV 9.2 (7.4-11.4) fL Neut # (Auto) 9.4 H (1.5-6.6) 10^3/uL Lymph # (Auto) 0.7 L (1.5-3.5) 10^3/uL [place] # (Auto) 1.0 (0.0-1.0) 10^3/uL Eos # (Auto) 0.1 (0.0-0.7) 10^3/uL Baso # (Auto) 0.0 (0.0-0.1) 10^3/uL Absolute Nucleated RBC 0.00 x10^3/uL Nucleated RBC % 0.0 /100WBC Platelet Estimate NORMAL (130-450,000) (NORMAL) Platelet Morphology NORMAL APPEARANCE (NORMAL) VBG pH (7.31-7.41) Ionized Calcium (1.15-1.33) mmol/L Sodium (135-145) mmol/L Potassium (3.5-4.5) mmol/L Chloride (101-111) mmol/L Carbon Dioxide (21-32) mmol/L Anion Gap (6-13) BUN (6-20) mg/dL Creatinine (0.6-1.3) mg/dL Estimated GFR (MDRD) (>89) Glucose (74-104) mg/dL Calcium (8.5-10.3) mg/dL Phosphorus (2.5-5.0) mg/dL Magnesium (1.7-2.3) mg/dL Total Bilirubin (0.2-1.0) mg/dL AST (10-42) IU/L ALT (10-60) IU/L Alkaline Phosphatase (42-121) IU/L Total Protein (6.4-8.9) g/dL Albumin (3.2-5.5) g/dL Globulin (2.1-4.2) g/dL Albumin/Globulin Ratio (1.0-2.2) Impression and Recommendations - Palliative Care Impression: This is a 67-year-old gentleman who unfortunately presents with TYRA, sepsis, septic shock with persistent hypotension, and most likely metastatic liver of unknown origin. Patient has had significant weight loss, poor intake, appetite remains poor secondary to uremia. Patient's functional status has had an acute decline, patient with multiple comorbidities and doing poorly overall in the acute setting here. Multiple decision points pending, palliative care providing support in the context of clarifying goals. Recommendations/Counseling Done: 1. Advanced care planning. Patient presents with poor prognostic variables of anorexia, weight loss of 70 pounds over a year, more acutely 12 kg over the last couple weeks. Patient with acute kidney injury, currently with hypotension and on vasopressors. Patient with known most likely metastatic disease not confirmed by biopsy, either their primary liver or metastatic liver which would put him at stage IV disease. Patient with multiple comorbidities but have been functional prior to acute illness and independent and living with his son. Current concerns include patient being able to be is decisional, weighing benef its and burdens of more subtle and nuances medical decisions in the context of priorities and moving forward. Patient's main goal is to be able to return home with his family, though patient would need to be almost back to prior level of functioning. Patient though does concede would need to go to a long-term or someplace if needed higher level care. In the context of this did recommend start Medicaid application, for either caregivers and/or placement needs in the future. Meeting with Riley and his , goals are to make a decision about what to tell family, recommended brother come out and visit, given patient if continues on current path, particularly with underlying malignancy most likely weeks not months and less able to tolerate treatment. Did discuss it is difficult in the acute care setting, looking at also what other decisions need to come along with current situation. This included DNAR versus full code, patient deferring this decision if needed be made to his son at this time, venous access issues, and transfer to higher level of care. Met and answered questions as best able given multiple unknowns, but goals remain to minimize suffering and focus on comfort. Riley with talk with brother and family, and plan to regroup with hospitalist later this afternoon when input received. Communication with hospitalist about above and PC conversations. 90 minutes with review of chart, coordination of care with hospitalist team, counseling with patient and family meeting to review/explore goals of care, decisional points, and anticipatory guidance provided.
[2023-04-27] MEDS: CEFEPIME 1 GM in SODIUM CHLORIDE 0.9% MINIBAG 100 ML IV SCH (14:46)
--- NOTE | 2023-04-27 15:01 | PROVIDER PROGRESS NOTE ---
Assessment/Plan - Problem List (1) Septic shock Assessment/Plan: (1) Septic shock Conclusion/Plan: --Exact etiology of septic shock is unknown. His low blood pressure was likely the etiology of his syncopal episode. --Blood and urine cultures ordered. NGTD. --Stop Vancomycin and continue cefepime. --CT chest/abdomen/pelvis was unrevealing however it was noncontrasted. Can consider repeat once his renal function improves. -- Started on norepinephrine to maintain MAP greater than 65. Attempting to wean. --TTE showing LVEF of 55%. --Refusing central line. I did make him aware of the risks of running pressors through a peripheral line including tissue necrosis. We will approach the topic of whether or not he would like a PICC line. (2) TYRA (acute kidney injury) Conclusion/Plan: --Etiology likely ATN from hypoperfusion. --Monitoring acid base status. Remains oliguric however he does produce more ur ine day by day. --Avoiding acidosis and hyperkalemia. --Extensive discussion was held with surrounding hospitals in order to attain transfer on 04/25/23. He has been accepted to [facility] however there is no bed availability. I did speak with Dr. Oh nephrology at 1102 for recommendations. She stated that he does not need dialysis right at this moment however as his condition continues to decline he will likely need dialysis. She recommended using Lokelma if he develops hyperkalemia. She also recommended starting 1300 mg of bicarb daily. Per her recommendation, a Lasix challenge with 100 mg IV was given. Case was discussed with Dr. Dipesh Melendez at 1218 of [facility] ICU. He stated that he will accept the patient however it is pending bed availability. He is also on the CC list. (3) Metastasis to liver of unknown origin Conclusion/Plan: --Liver mets noted on CT. Recommended to perform MRI to further evaluate. This can be considered as an outpatient study. --Case was discussed with palliative care. (4) Lactic acidosis Conclusion/Plan: --Resolved. (5) Hypertension Conclusion/Plan: --Holding home antihypertensives. (6) Altered mental status Conclusion/Plan: --Improving. Total CCT 33 mins. - Current Meds Current Meds: Current Medications Generic Name Dose Route Start Last Admin Trade Name Freq PRN Reason Stop Dose Admin Acetaminophen 650 mg 04/24/23 16:12 04/25/23 10:58 Acetaminophen 325 Mg Tablet PO 650 mg Q4HR PRN Administration Pain 1 to 4, or Fever Famotidine 20 mg 04/25/23 08:43 04/27/23 08:15 Famotidine 20 Mg/2 Ml Vial IVP 20 mg DAILY ANDREA Administration Heparin Sodium (Porcine) 5,000 unit 04/24/23 21:00 04/27/23 08:16 Heparin 5,000 Unit/Ml Vial SUBQ 5,000 unit BID ANDREA Administration Cefepime HCl 1 gm/ Sodium 100 mls @ 200 mls/hr 04/25/23 14:00 04/27/23 14:46 Chloride IV 04/30/23 14:29 200 mls/hr Q24H ANDREA Administration Norepinephrine Bitartrate 8 mg 250 mls @ 15 mls/hr 04/24/23 19:00 04/27/23 10:26 / Dextrose IV 4 mcg/min .[id number] ANDREA 7.5 mls/hr Administration Protocol 8 MCG/MIN Albumin Human 12.5 gm in 50 mls @ 50 mls/hr 04/27/23 08:00 04/27/23 14:47 Albuminar-25 IV 04/28/23 07:59 50 mls/hr Q6H ANDREA Administration Insulin Human Lispro 1 - 9 unit 04/25/23 12:27 04/27/23 12:30 Insulin Lispro 300 Unit/3 Ml Pen SUBQ 1 unit 0800,1200,1700,2100 ANDREA Administration Protocol Oxycodone HCl 5 mg 04/24/23 16:12 04/27/23 05:07 Oxycodone 5 Mg Tablet PO 5 mg Q4HR PRN Administration Pain 5 to 7 Polyethylene Glycol 17 gm 04/27/23 09:00 04/27/23 08:15 Polyethylene Glycol 3350 17 Gm Packet PO 17 gm DAILY ANDREA Administration Sodium Bicarbonate 650 mg 04/25/23 21:00 04/27/23 08:15 Sodium Bicarbonate 650 Mg Tablet PO 650 mg BID ANDREA Administration Sodium Chloride 10 ml 04/24/23 17:00 04/27/23 08:17 Sodium Chloride Flush 0.9% 10 Ml Syringe IVP 10 ml 0100,0900,1700 ANDREA Administration Trazodone HCl 100 mg 04/24/23:17 04/25/23 23:22 Trazodone 50 Mg Tablet PO 100 mg QPM PRN Administration Insomnia - Lab Result Fish Bone Diagrams: 04/27/23 04:30 04/27/23 04:30 - Additional Planning My Orders: My Active Orders 04/27/23 08:00 Albumin 25% [Albuminar-25] 12.5 gm in 50 ml IV Q6H 04/27/23 09:00 polyethylene glycoL 3350 [Miralax] 17 gm PO DAILY 04/27/23 Dinner Soft (Low Fiber) Diet [DIET] 04/27/23 18:00 Vancomycin Inj [Vancomycin] 2 gm Sodium Chloride 0.9% [Normal Saline 0.9%] 500 ml IV ONCE 04/28/23 05:00 CBC - COMP BLD CT W/AUTO DIFF [HEME] DAILYLAB COMPREHENSIVE METABOLIC PANEL [CHEM] DAILYLAB 04/29/23 05:00 CBC - COMP BLD CT W/AUTO DIFF [HEME] DAILYLAB COMPREHENSIVE METABOLIC PANEL [CHEM] DAILYLAB 04/30/23 05:00 CBC - COMP BLD CT W/AUTO DIFF [HEME] DAILYLAB COMPREHENSIVE METABOLIC PANEL [CHEM] DAILYLAB 05/01/23 05:00 CBC - COMP BLD CT W/AUTO DIFF [HEME] DAILYLAB COMPREHENSIVE METABOLIC PANEL [CHEM] DAILYLAB Subjective - Subjective Patient Reports: Feeling Better, Resting Comfortably, No Complaints Objective Vital Signs: Vital Signs - 24 hr 04/26/23 04/26/23 04/26/23 16:00 17:00 18:00 Temperature 36.2 C L 36.2 C L 36.2 C L Heart Rate [ 74 77 73 Monitoring electrodes] Respiratory 12 22 9 L Rate Blood Pressure [Left Brachial artery] Blood Pressure 99/54 L 112/61 107/57 L [Right Brachial artery] O2 Saturation 98 99 99 04/26/23 04/26/23 04/26/23 18:57 20:00 21:00 Temperature 36.4 C L 36.4 C L Heart Rate [ 67 70 67 Monitoring electrodes] Respiratory 17 15 14 Rate Blood Pressure 107/57 L 104/53 L 115/67 [Left Brachial artery] Blood Pressure [Right Brachial artery] O2 Saturation 100 98 98 04/26/23 04/26/23 04/27/23 22:00 23:00 00:00 Temperature 36.5 C Heart Rate [ 72 69 73 Monitoring electrodes] Respiratory 18 18 12 Rate Blood Pressure 105/59 L 103/61 106/62 [Left Brachial artery] Blood Pressure [Right Brachial artery] O2 Saturation 99 98 99 04/27/23 04/27/23 04/27/23 01:00 02:00 03:00 Temperature 36.7 C Heart Rate [ 74 72 76 Monitoring electrodes] Respiratory 14 12 13 Rate Blood Pressure 104/57 L 98/60 106/57 L [Left Brachial artery] Blood Pressure [Right Brachial artery] O2 Saturation 98 98 98 04/27/23 04/27/23 04/27/23 04:00 05:00 06:00 Temperature Heart Rate [ 76 81 75 Monitoring electrodes] Respiratory 16 18 15 Rate Blood Pressure 107/58 L 112/65 105/61 [Left Brachial artery] Blood Pressure [Right Brachial artery] O2 Saturation 96 96 96 04/27/23 04/27/23 04/27/23 07:00 08:00 09:00 Temperature 36.5 C 36.4 C L 36.4 C L Heart Rate [ 75 79 77 Monitoring electrodes] Respiratory 18 12 13 Rate Blood Pressure 97/67 96/42 L 118/60 [Left Brachial artery] Blood Pressure [Right Brachial artery] O2 Saturation 96 96 99 04/27/23 04/27/23 04/27/23 10:00 11:00 12:00 Temperature 36.5 C 36.4 C L Heart Rate [ 83 76 86 Monitoring electrodes] Respiratory 23 11 L 16 Rate Blood Pressure 114/68 96/64 103/65 [Left Brachial artery] Blood Pressure [Right Brachial artery] O2 Saturation 99 97 98 04/27/23 04/27/23 12:40 14:00 Temperature 36.4 C L Heart Rate [ 79 78 Monitoring electrodes] Respiratory 12 11 L Rate Blood Pressure 103/65 102/64 [Left Brachial artery] Blood Pressure [Right Brachial artery] O2 Saturation 97 96 Oxygen O2 Source Room air I&O (Last 24 Hrs): Intake and Output Totals x24h 04/25/23 04/26/23 04/27/23 23:59 23:59 23:59 Intake Total 3909.375 622.437 299.125 Output Total 671 1027 755 Balance 3238.375 -404.563 -455.875 General: Alert, Oriented x3, Cooperative, No acute distress Neuro: Alert, CN 2-12 Grossly Intact, Oriented Times 3 Cardiovascular: Regular rate, Normal S1, Normal S2, No murmurs Respiratory: Chest non-tender, No respiratory distress, Breath sounds nml Abdomen: Normal bowel sounds, Soft, No tenderness, No hepatospenomegaly, No masses - Results Results: Laboratory Results WBC 11.3 x10^3/uL (4.8-10.8) H 04/27/23 04:30 RBC 4.13 10^6/uL (4.70-6.10) L 04/27/23 04:30 Hgb 11.7 g/dL (14.0-18.0) L 04/27/23 04:30 Hct 36.9 % (42.0-52.0) L 04/27/23 04:30 MCV 89.3 fL (80.0-94.0) 04/27/23 04:30 MCH 28.3 pg (27.0-31.0) 04/27/23 04:30 MCHC 31.7 g/dL (32.0-36.0) L 04/27/23 04:30 RDW 14.6 % (12.0-15.0) 04/27/23 04:30 Plt Count 217 10^3/uL (130-450) 04/27/23 04:30 MPV 9.2 fL (7.4-11.4) 04/27/23 04:30 Neut # (Auto) 9.4 10^3/uL (1.5-6.6) H 04/27/23 04:30 Lymph # (Auto) 0.7 10^3/uL (1.5-3.5) L 04/27/23 04:30 Bremer # (Auto) 1.0 10^3/uL (0.0-1.0) 04/27/23 04:30 Eos # (Auto) 0.1 10^3/uL (0.0-0.7) 04/27/23 04:30 Baso # (Auto) 0.0 10^3/uL (0.0-0.1) 04/27/23 04:30 Absolute Nucleated RBC 0.00 x10^3/uL 04/27/23 04:30 Nucleated RBC % 0.0 /100WBC 04/27/23 04:30 Platelet Estimate NORMAL (130-450,000) (NORMAL) 04/27/23 04:30 Platelet Morphology NORMAL APPEARANCE (NORMAL) 04/27/23 04:30 VBG pH 7.392 (7.31-7.41) 04/27/23 04:30 Ionized Calcium 1.07 mmol/L (1.15-1.33) L 04/27/23 04:30 Sodium 131 mmol/L (135-145) L 04/27/23 04:30 Potassium 3.8 mmol/L (3.5-4.5) 04/27/23 04:30 Chloride 99 mmol/L (101-111) L 04/27/23 04:30 Carbon Dioxide 14 mmol/L (21-32) L 04/27/23 04:30 Anion Gap 18.0 (6-13) H 04/27/23 04:30 BUN 74 mg/dL (6-20) H 04/27/23 04:30 Creatinine 4.6 mg/dL (0.6-1.3) H 04/27/23 04:30 Estimated GFR (MDRD) 13 (>89) L 04/27/23 04:30 Glucose 173 mg/dL (74-104) H 04/27/23 04:30 Lactic Acid 1.1 mmol/L (0.5-2.2) 04/24/23 15:32 Calcium 8.7 mg/dL (8.5-10.3) 04/27/23 04:30 Phosphorus 4.7 mg/dL (2.5-5.0) 04/27/23 04:30 Magnesium 1.9 mg/dL (1.7-2.3) 04/27/23 04:30 Total Bilirubin 0.3 mg/dL (0.2-1.0) 04/27/23 04:30 AST 18 IU/L (10-42) 04/27/23 04:30 ALT 11 IU/L (10-60) 04/27/23 04:30 Alkaline Phosphatase 149 IU/L (42-121) H 04/27/23 04:30 Ammonia 24.3 umol/L (18-72) 04/25/23 04:45 Total Protein 6.0 g/dL (6.4-8.9) L 04/27/23 04:30 Albumin 3.5 g/dL (3.2-5.5) 04/27/23 04:30 Globulin 2.5 g/dL (2.1-4.2) 04/27/23 04:30 Albumin/Globulin Ratio 1.4 (1.0-2.2) 04/27/23 04:30 Lipase 37 U/L (11-82) 04/24/23 10:53 Urine Color DARK YELLOW 04/24/23 14:30 Urine Clarity CLEAR (CLEAR) 04/24/23 14:30 Urine pH 5.5 PH (5.0-7.5) 04/24/23 14:30 Ur Specific [place] >=1.030 (1.002-1.030) H 04/24/23 14:30 Urine Protein TRACE mg/dL (NEGATIVE) 04/24/23 14:30 Urine Glucose (UA) NEGATIVE mg/dL (NEGATIVE) 04/24/23 14:30 Urine Ketones NEGATIVE mg/dL (NEGATIVE) 04/24/23 14:30 Urine Occult Blood NEGATIVE (NEGATIVE) 04/24/23 14:30 Urine Nitrite NEGATIVE (NEGATIVE) 04/24/23 14:30 Urine Bilirubin NEGATIVE (NEGATIVE) 04/24/23 14:30 Urine Urobilinogen 0.2 (NORMAL) E.U./dL (NORMAL) 04/24/23 14:30 Ur Leukocyte Esterase NEGATIVE (NEGATIVE) 04/24/23 14:30 Ur Microscopic Review NOT INDICATED 04/24/23 14:30 Urine Culture Comments NOT INDICATED 04/24/23 14:30 Urine Creatinine 242.6 mg/dL 04/24/23 17:57 Urine Sodium 13.4 mmol/L 04/24/23 17:57 Nasal Adenovirus (PCR) NOT DETECTED 04/24/23 11:30 Nasal B. parapertussis DNA (PCR) NOT DETECTED 04/24/23 11:30 Nasal Coronavir 229E PCR NOT DETECTED 04/24/23 11:30 Nasal Coronavir HKU1 PCR NOT DETECTED 04/24/23 11:30 Nasal Coronavir NL63 PCR NOT DETECTED 04/24/23 11:30 Nasal Coronavir OC43 PCR NOT DETECTED 04/24/23 11:30 Nasal Enterovir/Rhinovir PCR NOT DETECTED 04/24/23 11:30 Nasal Influenza B PCR NOT DETECTED 04/24/23 11:30 Nasal Influenza A PCR NOT DETECTED 04/24/23 11:30 Nasal Parainfluen 1 PCR NOT DETECTED 04/24/23 11:30 Nasal Parainfluen 2 PCR NOT DETECTED 04/24/23 11:30 Nasal Parainfluen 3 PCR NOT DETECTED 04/24/23 11:30 Nasal Parainfluen 4 PCR NOT DETECTED 04/24/23 11:30 Nasal RSV (PCR) NOT DETECTED 04/24/23 11:30 Nasal Screen MRSA (PCR) NEGATIVE (NEGATIVE) 04/24/23 17:44 Nasal B.pertussis DNA PCR NOT DETECTED 04/24/23 11:30 Nasal C.pneumoniae (PCR) NOT DETECTED 04/24/23 11:30 Steven Human Metapneumo PCR NOT DETECTED 04/24/23 11:30 Nasal M.pneumoniae (PCR) NOT DETECTED 04/24/23 11:30 Nasal SARS-CoV-2 (PCR) NOT DETECTED 04/24/23 11:30 Blood Type O POSITIVE 04/24/23 10:53 Blood Type Recheck O POSITIVE 04/24/23 11:48 Antibody Screen NEGATIVE 04/24/23 10:53 - Procedures Procedures: Procedures INSPECTION OF LOWER INTESTINAL TRACT, ENDO (11/27/19) Sepsis Event Note (H) - Evaluation Current Stage of Sepsis: Septic shock - Sepsis Criteria Sepsis Criteria: Recorded Temperature greater than 38.3C or Less than 36C, WBC count greater than 12,000 or less than 4000, MAP less than 65 mmHg
[2023-04-27] MEDS ORDERED: VANCOMYCIN INJ 2 GM in SODIUM CHLORIDE 0.9% 500 ML IV ONE (18:00)
[2023-04-27] MEDS: traZODone 50 MG TABLET PO PRN (20:24)
[2023-04-28] MEDS: ALBUMIN 25% 12.5 GM/50 ML VIAL IV SCH (01:54)
[2023-04-28] MEDS: SODIUM CHLORIDE FLUSH 0.9% 10 ML SYRINGE IVP SCH ×3 (01:54→16:16)
[2023-04-28 06:20] LABS: BASOPHILS % (AUTO) 0.2 %; EOSINOPHILS # (AUTO) 0.1 10^3/uL (0.0-0.7); EOSINOPHILS % (AUTO) 2.1 %; HCT - HEMATOCRIT 30.3 % (42.0-52.0); HGB - HEMOGLOBIN 9.9 g/dL (14.0-18.0); LYMPHOCYTES # (AUTO) 0.3 10^3/uL (1.5-3.5); LYMPHOCYTES % (AUTO) 6.3 %; MEAN CORPUSCULAR HEMOGLOBIN 28.9 pg (27.0-31.0); MEAN CORPUSCULAR HGB CONC 32.7 g/dL (32.0-36.0); MEAN CORPUSCULAR VOLUME 88.3 fL (80.0-94.0); MEAN PLATELET VOLUME 8.9 fL (7.4-11.4); MONOCYTES # (AUTO) 0.4 10^3/uL (0.0-1.0); MONOCYTES % (AUTO) 7.5 %; NEUTROPHILS # (AUTO) 4.4 10^3/uL (1.5-6.6); NEUTROPHILS % (AUTO) 83.5 %; PLT - PLATELET COUNT 142 10^3/uL (130-450); RED BLOOD COUNT 3.43 10^6/uL (4.70-6.10); RED CELL DISTRIBUTION WIDTH 14.6 % (12.0-15.0); WHITE BLOOD COUNT 5.2 x10^3/uL (4.8-10.8)
[2023-04-28 06:34] LABS: ALBUMIN 3.6 g/dL (3.2-5.5); ALBUMIN/GLOBULIN RATIO 1.6 (1.0-2.2); BILIRUBIN,TOTAL 0.3 mg/dL (0.2-1.0); CALCIUM 8.8 mg/dL (8.5-10.3); MAGNESIUM 1.9 mg/dL (1.7-2.3); PHOSPHORUS 4.5 mg/dL (2.5-5.0); POTASSIUM 3.7 mmol/L (3.5-4.5); TOTAL PROTEIN 5.8 g/dL (6.4-8.9)
[2023-04-28 06:38] LABS: CALCIUM, IONIZED 1.13 mmol/L (1.15-1.33); VBG PH 7.368 (7.31-7.41)
[2023-04-28] MEDS: INSULIN LISPRO 300 UNIT/3 ML PEN SUBQ SCH ×3 (08:26→13:15)
--- NOTE | 2023-04-28 08:38 | XRAY Report ---
PROCEDURE: Chest 1 View X-Ray INDICATIONS: Productive cough TECHNIQUE: One view of the chest was acquired. COMPARISON: None. FINDINGS: Surgical changes and devices: None. Lungs and pleura: Streaky left basilar airspace opacity. Mediastinum: Mediastinal contours appear normal. Heart size is normal. Bones and chest wall: No suspicious bony lesions. Overlying soft tissues appear unremarkable. IMPRESSION: Streaky left basilar airspace opacity, could represent mild infection or atelectasis. Recommend repea t radiograph in one month to ensure resolution. Reviewed by: Jason Kirk MD on 04/28/2023 8:36 AM [facility] Approved by: Jason Kirk MD on 04/28/2023 8:36 AM [facility] Station ID: [id number]
[2023-04-28] MEDS: FAMOTIDINE 20 MG/2 ML VIAL IVP SCH (08:45)
[2023-04-28] MEDS: SODIUM BICARBONATE 650 MG TABLET PO SCH (08:45)
[2023-04-28] MEDS: ACETAMINOPHEN 325 MG TABLET PO PRN (08:45)
[2023-04-28] MEDS: oxyCODONE 5 MG TABLET PO PRN (08:45)
[2023-04-28] MEDS: HEPARIN 5,000 UNIT/ML VIAL SUBQ SCH (08:46)
[2023-04-28] MEDS: polyethylene glycoL 3350 17 GM PACKET PO SCH (08:48)
--- NOTE | 2023-04-28 09:19 | PROVIDER PROGRESS NOTE ---
Assessment/Plan - Problem List (1) Septic shock Assessment/Plan: (1) Septic shock Conclusion/Plan: --Exact etiology of septic shock is unknown. His low blood pressure was likely the etiology of his syncopal episode. --Blood and urine cultures ordered. NGTD. --Stop Vancomycin and continue cefepime. --CT chest/abdomen/pelvis was unrevealing however it was noncontrasted. Can consider repeat once his renal function improves. -- Started on norepinephrine to maintain MAP greater than 65. Attempting to wean. --TTE showing LVEF of 55%. --Refusing central line. I did make him aware of the risks of running pressors through a peripheral line including tissue necrosis. Hopeful we can wean him off of levophed in next 24 hours. (2) TYRA (acute kidney injury) Conclusion/Plan: --Etiology likely ATN from hypoperfusion. --Monitoring acid base status. Remains oliguric however he does produce more urine day by day. --Avoiding acidosis and hyperkalemia. --Extensive discussion was held with surrounding hospitals in order to attain transfer on 04/25/23. He has been accepted to [facility] however th ere is no bed availability. I did speak with Dr. Oh nephrology at 1102 for recommendations. She stated that he does not need dialysis right at this moment however as his condition continues to decline he will likely need dialysis. She recommended using Lokelma if he develops hyperkalemia. She also recommended starting 1300 mg of bicarb daily. Per her recommendation, a Lasix challenge wit h 100 mg IV was given. Case was discussed with Dr. Dipesh Melendez at 1218 of [facility] ICU. He stated that he will accept the patient however it is pending bed availability. He is also on the CC list. I updated on 04/27. Still no bed availability. (3) Metastasis to liver of unknown origin Conclusion/Plan: --Liver mets noted on CT. Recommended to perform MRI to further evaluate. This can be considered as an outpatient study. --Case was discussed with palliative care. (4) Lactic acidosis Conclusion/Plan: --Resolved. (5) Hypertension Conclusion/Plan: --Holding home antihypertensives. (6) Altered mental status Conclusion/Plan: --Improving. Total CCT 31 mins. (7) Critical illness myopathy Assessment/Plan: --Has not ambulated in some days. Will order PT/OT. Concern for developing pressure ulcers. Unfortunately no PT over the weekend. --This is complicated by poor nutrition which will limit wound healing. - Current Meds Current Meds: Current Medications Generic Name Dose Route Start Last Admin Trade Name Freq PRN Reason Stop Dose Admin Acetaminophen 650 mg 04/24/23 16:12 04/28/23 08:45 Acetaminophen 325 Mg Tablet PO 650 mg Q4HR PRN Administration Pain 1 to 4, or Fever Famotidine 20 mg 04/25/23 08:43 04/28/23 08:45 Famotidine 20 Mg/2 Ml Vial IVP 20 mg DAILY ANDREA Administration Heparin Sodium (Porcine) 5,000 unit 04/24/23 21:00 04/28/23 08:46 Heparin 5,000 Unit/Ml Vial SUBQ 5,000 unit BID ANDREA Administration Cefepime HCl 1 gm/ Sodium 100 mls @ 200 mls/hr 04/25/23 14:00 04/27/23 15:32 Chloride IV 04/30/23 14:29 Infused Q24H ANDREA Infusion Norepinephrine Bitartrate 8 mg 250 mls @ 15 mls/hr 04/24/23 19:00 04/28/23 08:27 / Dextrose IV 1 mcg/min .[id number] ANDREA 1.875 mls/hr Titration Protocol 8 MCG/MIN Insulin Human Lispro 1 - 9 unit 04/25/23 12:27 04/28/23 08:26 Insulin Lispro 300 Unit/3 Ml Pen SUBQ Not Given 0800,1200,1700,2100 [facility] Protocol Oxycodone HCl 5 mg 04/24/23 16:12 04/28/23 08:45 Oxycodone 5 Mg Tablet PO 5 mg Q4HR PRN Administration Pain 5 to 7 Polyethylene Glycol 17 gm 04/27/23 09:00 04/28/23 08:48 Polyethylene Glycol 3350 17 Gm Packet PO 17 gm DAILY ANDREA Administration Sodium Bicarbonate 650 mg 04/25/23 21:00 04/28/23 08:45 Sodium Bicarbonate 650 Mg Tablet PO 650 mg BID ANDREA Administration Sodium Chloride 10 ml 04/24/23 17:00 04/28/23 01:54 Sodium Chloride Flush 0.9% 10 Ml Syringe IVP 10 ml 0100,0900,1700 ANDREA Administration Trazodone HCl 100 mg 04/24/23 20:17 04/27/23 20:24 Trazodone 50 Mg Tablet PO 100 mg QPM PRN Administration Insomnia - Lab Result Fish Bone Diagrams: 04/28/23 05:02 04/28/23 05:02 - Additional Planning My Orders: My Active Orders 04/27/23 09:00 polyethylene glycoL 3350 [Miralax] 17 gm PO DAILY 04/27/23 Dinner Soft (Low Fiber) Diet [DIET] 04/28/23 Evaluate and Treat OT [OT] Routine Evaluate and Treat PT [PT] Routine 04/29/23 05:00 CBC - COMP BLD CT W/AUTO DIFF [HEME] DAILYLAB COMPREHENSIVE METABOLIC PANEL [CHEM] DAILYLAB 04/30/23 05:00 CBC - COMP BLD CT W/AUTO DIFF [HEME] DAILYLAB COMPREHENSIVE METABOLIC PANEL [CHEM] DAILYLAB 05/01/23 05:00 CBC - COMP BLD CT W/AUTO DIFF [HEME] DAILYLAB COMPREHENSIVE METABOLIC PANEL [CHEM] DAILYLAB Subjective - Subjective Patient Reports: Feeling Better, Resting Comfortably, No Complaints Objective Vital Signs: Vital Signs - 24 hr 04/27/23 04/27/23 04/27/23 10:00 11:00 12:00 Temperature 36.5 C 36.4 C L Heart Rate [ 83 76 86 Monitoring electrodes] Respiratory 23 11 L 16 Rate Blood Pressure 114/68 96/64 103/65 [Left Brachial artery] O2 Saturation 99 97 98 04/27/23 04/27/23 04/27/23 12:40 14:00 15:00 Temperature 36.4 C L Heart Rate [ 79 78 78 Monitoring electrodes] Respiratory 12 11 L 10 L Rate Blood Pressure 103/65 102/64 105/59 L [Left Brachial artery] O2 Saturation 97 96 96 04/27/23 04/27/23 04/27/23 16:00 17:00 18:00 Temperature 36.5 C Heart Rate [ 80 74 78 Monitoring electrodes] Respiratory 14 12 10 L Rate Blood Pressure 117/63 121/68 111/61 [Left Brachial artery] O2 Saturation 94 97 97 04/27/23 04/27/23 04/27/23 19:00 20:00 21:00 Temperature 36.7 C 36.7 C Heart Rate [ 77 86 78 Monitoring electrodes] Respiratory 13 19 11 L Rate Blood Pressure 105/64 114/68 108/61 [Left Brachial artery] O2 Saturation 98 100 96 04/27/23 04/27/23 04/28/23 22:00 23:00 00:00 Temperature 36.7 C 36.8 C 36.8 C Heart Rate [ 82 79 85 Monitoring electrodes] Respiratory 10 L 11 L 12 Rate Blood Pressure 106/62 105/68 107/65 [Left Brachial artery] O2 Saturation 97 99 98 04/28/23 04/28/23 04/28/23 01:00 02:00 03:00 Temperature 37.1 C Heart Rate [ 88 82 92 Monitoring electrodes] Respiratory 14 13 16 Rate Blood Pressure 96/62 112/64 104/60 [Left Brachial artery] O2 Saturation 99 97 96 04/28/23 04/28/23 04/28/23 04:00 05:00 06:00 Temperature 37.1 C 37.1 C 37.1 C Heart Rate [ 90 85 85 Monitoring electrodes] Respiratory 16 17 15 Rate Blood Pressure 108/63 107/66 108/62 [Left Brachial artery] O2 Saturation 97 95 96 04/28/23 04/28/23 04/28/23 07:00 08:00 08:10 Temperature 37.0 C 36.9 C Heart Rate [ 93 84 Monitoring electrodes] Respiratory 22 14 Rate Blood Pressure 109/66 110/65 [Left Brachial artery] O2 Saturation 97 96 04/28/23 09:00 Temperature Heart Rate [ 97 Monitoring electrodes] Respiratory 24 Rate Blood Pressure 99/55 L [Left Brachial artery] O2 Saturation 98 Oxygen O2 Source Room air I&O (Last 24 Hrs): Intake and Output Totals x24h 04/26/23 04/27/23 04/28/23 23:59 23:59 23:59 Intake Total 622.437 549.844 605.125 Output Total 1027 1290 404 Balance -404.563 -740.156 201.125 General: Alert, Oriented x3 Neuro: Alert Cardiovascular: Regular rate, Normal S1, Normal S2 Respiratory: Chest non-tender, No respiratory distress Abdomen: Normal bowel sounds, Soft - Results Results: Laboratory Results WBC 5.2 x10^3/uL (4.8-10.8) 04/28/23 05:02 RBC 3.43 10^6/uL (4.70-6.10) L 04/28/23 05:02 Hgb 9.9 g/dL (14.0-18.0) L 04/28/23 05:02 Hct 30.3 % (42.0-52.0) L 04/28/23 05:02 MCV 88.3 fL (80.0-94.0) 04/28/23 05:02 MCH 28.9 pg (27.0-31.0) 04/28/23 05:02 MCHC 32.7 g/dL (32.0-36.0) 04/28/23 05:02 RDW 14.6 % (12.0-15.0) 04/28/23 05:02 Plt Count 142 10^3/uL (130-450) 04/28/23 05:02 MPV 8.9 fL (7.4-11.4) 04/28/23 05:02 Neut # (Auto) 4.4 10^3/uL (1.5-6.6) 04/28/23 05:02 Lymph # (Auto) 0.3 10^3/uL (1.5-3.5) L 04/28/23 05:02 [place] # (Auto) 0.4 10^3/uL (0.0-1.0) 04/28/23 05:02 Eos # (Auto) 0.1 10^3/uL (0.0-0.7) 04/28/23 05:02 Baso # (Auto) 0.0 10^3/uL (0.0-0.1) 04/28/23 05:02 Absolute Nucleated RBC 0.00 x10^3/uL 04/28/23 05:02 Nucleated RBC % 0.0 /100WBC 04/28/23 05:02 Platelet Estimate NORMAL (130-450,000) (NORMAL) 04/27/23 04:30 Platelet Morphology NORMAL APPEARANCE (NORMAL) 04/27/23 04:30 VBG pH 7.368 (7.31-7.41) 04/28/23 05:02 Ionized Calcium 1.13 mmol/L (1.15-1.33) L 04/28/23 05:02 Sodium 133 mmol/L (135-145) L 04/28/23 05:02 Potassium 3.7 mmol/L (3.5-4.5) 04/28/23 05:02 Chloride 101 mmol/L (101-111) 04/28/23 05:02 Carbon Dioxide 19 mmol/L (21-32) L 04/28/23 05:02 Anion Gap 13.0 (6-13) 04/28/23 05:02 BUN 73 mg/dL (6-20) H 04/28/23 05:02 Creatinine 4.0 mg/dL (0.6-1.3) H 04/28/23 05:02 Estimated GFR (MDRD) 15 (>89) L 04/28/23 05:02 Glucose 124 mg/dL (74-104) H 04/28/23 05:02 Lactic Acid 1.1 mmol/L (0.5-2.2) 04/24/23 15:32 Calcium 8.8 mg/dL (8.5-10.3) 04/28/23 05:02 Phosphorus 4.5 mg/dL (2.5-5.0) 04/28/23 05:02 Magnesium 1.9 mg/dL (1.7-2.3) 04/28/23 05:02 Total Bilirubin 0.3 mg/dL (0.2-1.0) 04/28/23 05:02 AST 17 IU/L (10-42) 04/28/23 05:02 ALT 9 IU/L (10-60) L 04/28/23 05:02 Alkaline Phosphatase 133 IU/L (42-121) H 04/28/23 05:02 Ammonia 24.3 umol/L (18-72) 04/25/23 04:45 Total Protein 5.8 g/dL (6.4-8.9) L 04/28/23 05:02 Albumin 3.6 g/dL (3.2-5.5) 04/28/23 05:02 Globulin 2.2 g/dL (2.1-4.2) 04/28/23 05:02 Albumin/Globulin Ratio 1.6 (1.0-2.2) 04/28/23 05:02 Lipase 37 U/L (11-82) 04/24/23 10:53 Urine Color DARK YELLOW 04/24/23 14:30 Urine Clarity CLEAR (CLEAR) 04/24/23 14:30 Urine pH 5.5 PH (5.0-7.5) 04/24/23 14:30 Ur Specific [place] >=1.030 (1.002-1.030) H 04/24/23 14:30 Urine Protein TRACE mg/dL (NEGATIVE) 04/24/23 14:30 Urine Glucose (UA) NEGATIVE mg/dL (NEGATIVE) 04/24/23 14:30 Urine Ketones NEGATIVE mg/dL (NEGATIVE) 04/24/23 14:30 Urine Occult Blood NEGATIVE (NEGATIVE) 04/24/23 14:30 Urine Nitrite NEGATIVE (NEGATIVE) 04/24/23 14:30 Urine Bilirubin NEGATIVE (NEGATIVE) 04/24/23 14:30 Urine Urobilinogen 0.2 (NORMAL) E.U./dL (NORMAL) 04/24/23 14:30 Ur Leukocyte Esterase NEGATIVE (NEGATIVE) 04/24/23 14:30 Ur Microscopic Review NOT INDICATED 04/24/23 14:30 Urine Culture Comments NOT INDICATED 04/24/23 14:30 Urine Creatinine 242.6 mg/dL 04/24/23 17:57 Urine Sodium 13.4 mmol/L 04/24/23 17:57 Nasal Adenovirus (PCR) NOT DETECTED 04/24/23 11:30 Nasal B. parapertussis DNA (PCR) NOT DETECTED 04/24/23 11:30 Nasal Coronavir 229E PCR NOT DETECTED 04/24/23 11:30 Nasal Coronavir HKU1 PCR NOT DETECTED 04/24/23 11:30 Nasal Coronavir NL63 PCR NOT DETECTED 04/24/23 11:30 Nasal Coronavir OC43 PCR NOT DETECTED 04/24/23 11:30 Nasal Enterovir/Rhinovir PCR NOT DETECTED 04/24/23 11:30 Nasal Influenza B PCR NOT DETECTED 04/24/23 11:30 Nasal Influenza A PCR NOT DETECTED 04/24/23 11:30 Nasal Parainfluen 1 PCR NOT DETECTED 04/24/23 11:30 Nasal Parainfluen 2 PCR NOT DETECTED 04/24/23 11:30 Nasal Parainfluen 3 PCR NOT DETECTED 04/24/23 11:30 Nasal Parainfluen 4 PCR NOT DETECTED 04/24/23 11:30 Nasal RSV (PCR) NOT DETECTED 04/24/23 11:30 Nasal Screen MRSA (PCR) NEGATIVE (NEGATIVE) 04/24/23 17:44 Nasal B.pertussis DNA PCR NOT DETECTED 04/24/23 11:30 Nasal C.pneumoniae (PCR) NOT DETECTED 04/24/23 11:30 Steven Human Metapneumo PCR NOT DETECTED 04/24/23 11:30 Nasal M.pneumoniae (PCR) NOT DETECTED 04/24/23 11:30 Nasal SARS-CoV-2 (PCR) NOT DETECTED 04/24/23 11:30 Blood Type O POSITIVE 04/24/23 10:53 Blood Type Recheck O POSITIVE 04/24/23 11:48 Antibody Screen NEGATIVE 04/24/23 10:53 - Procedures Procedures: Procedures INSPECTION OF LOWER INTESTINAL TRACT, ENDO (11/27/19) Sepsis Event Note (H) - Evaluation Current Stage of Sepsis: Septic shock - Sepsis Criteria Sepsis Criteria: Recorded Temperature greater than 38.3C or Less than 36C, WBC count greater than 12,000 or less than 4000, MAP less than 65 mmHg
[2023-04-28] MEDS ORDERED: MIN OIL/DIMETHICON/COCONUT OIL 92 GM TUBE TOP PRN (09:43)
[2023-04-28] MEDS ORDERED: AZITHROMYCIN INJ 500 MG in SODIUM CHLORIDE 0.9% 250 ML IV SCH (11:00)
[2023-04-28] MEDS ORDERED: ALBUMIN 25% 12.5 GM/50 ML VIAL IV SCH (11:00)
[2023-04-28] MEDS ORDERED: CARBOXYMETHYLCELLULOSE OPHTH DROPS EACHEYE PRN (13:46)
[2023-04-28] MEDS ORDERED: ONDANSETRON 4 MG/2 ML VIAL IVP PRN (13:46)
[2023-04-28] MEDS ORDERED: ACETAMINOPHEN 160 MG/5 ML SUSP UDC PO PRN (13:46)
[2023-04-28] MEDS ORDERED: LORazepam 2 MG/ML VIAL IVP PRN (13:46)
[2023-04-29] MEDS: GLYCOPYRROLATE 1 MG/5 ML VIAL SUBQ PRN (00:06)
[2023-04-29] MEDS: MORPHINE 2 MG/ML CARPUJECT IVP PRN ×3 (01:28→14:46)
--- NOTE | 2023-04-29 09:15 | PROVIDER PROGRESS NOTE ---
Assessment/Plan - Problem List (8) Comfort measures only status Assessment/Plan: --Placed on comfort care on 04/28. - Current Meds Current Meds: Current Medications Generic Name Dose Route Start Last Admin Trade Name Freq PRN Reason Stop Dose Admin Glycopyrrolate 0.2 mg 04/28/23 13:46 04/29/23 00:06 Glycopyrrolate 1 Mg/5 Ml Vial SUBQ 0.2 mg Q4H PRN Administration Excessive secretions Morphine Sulfate 2 mg 04/28/23 13:46 04/29/23 06:10 Morphine 2 Mg/Ml Carpuject IVP 2 mg Q2HR PRN Administration Severe Pain (Level 7-10)/ SOA Oxycodone HCl 5 mg 04/24/23 16:12 04/28/23 08:45 Oxycodone 5 Mg Tablet PO 5 mg Q4HR PRN Administration Pain 5 to 7 - Lab Result Fish Bone Diagrams: 04/28/23 05:02 04/28/23 05:02 - Additional Planning My Orders: My Active Orders 04/28/23 13:46 Comfort Care [RC] QSHIFT Cooling Unit [RC] PRN Oral Care - Nursing [RC] BID Oxygen Therapy [RC] .PRN Vital Signs [RC] PRN Warming Unit [RC] PRN Acetaminophen [Tylenol] 640 mg PO Q4H PRN Atropine 1% Ophth Drops [Isopto Atropine 1% Ophth Drops] 1 - 4 drops SL Q2H PRN Carboxymethylcellulose 1% Opht [Refresh 1% Ophth Drops] 1 drops EACHEYE QID PRN Glycopyrrolate [Robinul] 0.2 mg SUBQ Q4H PRN Morphine Inj (Carpuject) [Morphine (Carpuject)] 2 mg IVP Q2HR PRN Morphine Oral Soln [Roxanol] 10 mg PO Q2HR PRN Ondansetron Inj [Zofran Inj] 4 mg IVP Q8H PRN Code Status [OTHERS] Routine Subjective - Subjective Patient Reports: Resting Comfortably, No Complaints Objective Vital Signs: Vital Signs - 24 hr 04/28/23 04/28/23 04/28/23 09:30 10:00 11:00 Temperature Heart Rate [ Brachial] Heart Rate [ 87 78 Monitoring electrodes] Respiratory 14 14 Rate Blood Pressure 79/52 L 96/57 L 91/61 [Left Brachial artery] O2 Saturation 95 96 04/28/23 04/28/23 04/28/23 12:00 12:13 13:00 Temperature 36.6 C Heart Rate [ Brachial] Heart Rate [ 80 84 Monitoring electrodes] Respiratory 12 15 Rate Blood Pressure 83/52 L 84/59 L 100/58 L [Left Brachial artery] O2 Saturation 96 100 04/28/23 04/28/23 04/28/23 13:30 16:31 23:56 Temperature 36.8 C Heart Rate [ Brachial] Heart Rate [ 84 Monitoring electrodes] Respiratory 14 Rate Blood Pressure 98/64 101/58 L [Left Brachial artery] O2 Saturation 04/29/23 07:54 Temperature 36.4 C L Heart Rate [ 98 Brachial] Heart Rate [ Monitoring electrodes] Respiratory 16 Rate Blood Pressure 89/60 L [Left Brachial artery] O2 Saturation 93 Oxygen O2 Source Room air I&O (Last 24 Hrs): Intake and Output Totals x24h 04/27/23 04/28/23 04/29/23 23:59 23:59 23:59 Intake Total 430.575 4523.281 0 Output Total 1290 698 225 Balance -008.738 9125.281 -225 General: Alert, Oriented x3 Neuro: Alert Cardiovascular: Regular rate, Normal S1 - Results Results: Laboratory Results WBC 5.2 x10^3/uL (4.8-10.8) 04/28/23 05:02 RBC 3.43 10^6/uL (4.70-6.10) L 04/28/23 05:02 Hgb 9.9 g/dL (14.0-18.0) L 04/28/23 05:02 Hct 30.3 % (42.0-52.0) L 04/28/23 05:02 MCV 88.3 fL (80.0-94.0) 04/28/23 05:02 MCH 28.9 pg (27.0-31.0) 04/28/23 05:02 MCHC 32.7 g/dL (32.0-36.0) 04/28/23 05:02 RDW 14.6 % (12.0-15.0) 04/28/23 05:02 Plt Count 142 10^3/uL (130-450) 04/28/23 05:02 MPV 8.9 fL (7.4-11.4) 04/28/23 05:02 Neut # (Auto) 4.4 10^3/uL (1.5-6.6) 04/28/23 05:02 Lymph # (Auto) 0.3 10^3/uL (1.5-3.5) L 04/28/23 05:02 [place] # (Auto) 0.4 10^3/uL (0.0-1.0) 04/28/23 05:02 Eos # (Auto) 0.1 10^3/uL (0.0-0.7) 04/28/23 05:02 Baso # (Auto) 0.0 10^3/uL (0.0-0.1) 04/28/23 05:02 Absolute Nucleated RBC 0.00 x10^3/uL 04/28/23 05:02 Nucleated RBC % 0.0 /100WBC 04/28/23 05:02 Platelet Estimate NORMAL (130-450,000) (NORMAL) 04/27/23 04:30 Platelet Morphology NORMAL APPEARANCE (NORMAL) 04/27/23 04:30 VBG pH 7.368 (7.31-7.41) 04/28/23 05:02 Ionized Calcium 1.13 mmol/L (1.15-1.33) L 04/28/23 05:02 Sodium 133 mmol/L (135-145) L 04/28/23 05:02 Potassium 3.7 mmol/L (3.5-4.5) 04/28/23 05:02 Chloride 101 mmol/L (101-111) 04/28/23 05:02 Carbon Dioxide 19 mmol/L (21-32) L 04/28/23 05:02 Anion Gap 13.0 (6-13) 04/28/23 05:02 BUN 73 mg/dL (6-20) H 04/28/23 05:02 Creatinine 4.0 mg/dL (0.6-1.3) H 04/28/23 05:02 Estimated GFR (MDRD) 15 (>89) L 04/28/23 05:02 Glucose 124 mg/dL (74-104) H 04/28/23 05:02 Lactic Acid 1.1 mmol/L (0.5-2.2) 04/24/23 15:32 Calcium 8.8 mg/dL (8.5-10.3) 04/28/23 05:02 Phosphorus 4.5 mg/dL (2.5-5.0) 04/28/23 05:02 Magnesium 1.9 mg/dL (1.7-2.3) 04/28/23 05:02 Total Bilirubin 0.3 mg/dL (0.2-1.0) 04/28/23 05:02 AST 17 IU/L (10-42) 04/28/23 05:02 ALT 9 IU/L (10-60) L 04/28/23 05:02 Alkaline Phosphatase 133 IU/L (42-121) H 04/28/23 05:02 Ammonia 24.3 umol/L (18-72) 04/25/23 04:45 Total Protein 5.8 g/dL (6.4-8.9) L 04/28/23 05:02 Albumin 3.6 g/dL (3.2-5.5) 04/28/23 05:02 Globulin 2.2 g/dL (2.1-4.2) 04/28/23 05:02 Albumin/Globulin Ratio 1.6 (1.0-2.2) 04/28/23 05:02 Lipase 37 U/L (11-82) 04/24/23 10:53 Urine Color DARK YELLOW 04/24/23 14:30 Urine Clarity CLEAR (CLEAR) 04/24/23 14:30 Urine pH 5.5 PH (5.0-7.5) 04/24/23 14:30 Ur Specific [place] >=1.030 (1.002-1.030) H 04/24/23 14:30 Urine Protein TRACE mg/dL (NEGATIVE) 04/24/23 14:30 Urine Glucose (UA) NEGATIVE mg/dL (NEGATIVE) 04/24/23 14:30 Urine Ketones NEGATIVE mg/dL (NEGATIVE) 04/24/23 14:30 Urine Occult Blood NEGATIVE (NEGATIVE) 04/24/23 14:30 Urine Nitrite NEGATIVE (NEGATIVE) 04/24/23 14:30 Urine Bilirubin NEGATIVE (NEGATIVE) 04/24/23 14:30 Urine Urobilinogen 0.2 (NORMAL) E.U./dL (NORMAL) 04/24/23 14:30 Ur Leukocyte Esterase NEGATIVE (NEGATIVE) 04/24/23 14:30 Ur Microscopic Review NOT INDICATED 04/24/23 14:30 Urine Culture Comments NOT INDICATED 04/24/23 14:30 Urine Creatinine 242.6 mg/dL 04/24/23 17:57 Urine Sodium 13.4 mmol/L 04/24/23 17:57 Nasal Adenovirus (PCR) NOT DETECTED 04/24/23 11:30 Nasal B. parapertussis DNA (PCR) NOT DETECTED 04/24/23 11:30 Nasal Coronavir 229E PCR NOT DETECTED 04/24/23 11:30 Nasal Coronavir HKU1 PCR NOT DETECTED 04/24/23 11:30 Nasal Coronavir NL63 PCR NOT DETECTED 04/24/23 11:30 Nasal Coronavir OC43 PCR NOT DETECTED 04/24/23 11:30 Nasal Enterovir/Rhinovir PCR NOT DETECTED 04/24/23 11:30 Nasal Influenza B PCR NOT DETECTED 04/24/23 11:30 Nasal Influenza A PCR NOT DETECTED 04/24/23 11:30 Nasal Parainfluen 1 PCR NOT DETECTED 04/24/23 11:30 Nasal Parainfluen 2 PCR NOT DETECTED 04/24/23 11:30 Nasal Parainfluen 3 PCR NOT DETECTED 04/24/23 11:30 Nasal Parainfluen 4 PCR NOT DETECTED 04/24/23 11:30 Nasal RSV (PCR) NOT DETECTED 04/24/23 11:30 Nasal Screen MRSA (PCR) NEGATIVE (NEGATIVE) 04/24/23 17:44 Nasal B.pertussis DNA PCR NOT DETECTED 04/24/23 11:30 Nasal C.pneumoniae (PCR) NOT DETECTED 04/24/23 11:30 [place] Human Metapneumo PCR NOT DETECTED 04/24/23 11:30 Nasal M.pneumoniae (PCR) NOT DETECTED 04/24/23 11:30 Nasal SARS-CoV-2 (PCR) NOT DETECTED 04/24/23 11:30 Blood Type O POSITIVE 04/24/23 10:53 Blood Type Recheck O POSITIVE 04/24/23 11:48 Antibody Screen NEGATIVE 04/24/23 10:53 - Procedures Procedures: Procedures INSPECTION OF LOWER INTESTINAL TRACT, ENDO (11/27/19) Sepsis Event Note (H) - Evaluation Current Stage of Sepsis: Septic shock - Sepsis Criteria Sepsis Criteria: Recorded Temperature greater than 38.3C or Less than 36C, WBC count greater than 12,000 or less than 4000, MAP less than 65 mmHg
[2023-04-30] MEDS: GLYCOPYRROLATE 1 MG/5 ML VIAL SUBQ PRN ×2 (02:00→19:08)
[2023-04-30] MEDS: ATROPINE 1% OPHTH DROPS 2 ML SL PRN ×4 (06:00→22:36)
--- NOTE | 2023-04-30 09:27 | PROVIDER PROGRESS NOTE ---
Assessment/Plan - Problem List (8) Comfort measures only status Assessment/Plan: (8) Comfort measures only status Assessment/Plan: --Placed on comfort care on 04/28. --Hospice will evaluate him later today. --No acute issues, he is comfortable. - Current Meds Current Meds: Current Medications Generic Name Dose Route Start Last Admin Trade Name Freq PRN Reason Stop Dose Admin Atropine Sulfate 1 - 4 drops 04/28/23 13:46 04/30/23 06:00 Atropine 1% Ophth Drops 2 Ml SL 4 drops Q2H PRN Administration Excessive secretions Glycopyrrolate 0.2 mg 04/28/23 13:46 04/30/23 02:00 Glycopyrrolate 1 Mg/5 Ml Vial SUBQ 0.2 mg Q4H PRN Administration Excessive secretions Morphine Sulfate 2 mg 04/28/23 13:46 04/29/23 14:46 Morphine 2 Mg/Ml Carpuject IVP 2 mg Q2HR PRN Administration Severe Pain (Level 7-10)/ SOA Oxycodone HCl 5 mg 04/24/23 16:12 04/28/23 08:45 Oxycodone 5 Mg Tablet PO 5 mg Q4HR PRN Administration Pain 5 to 7 - Lab Result Fish Bone Diagrams: 04/28/23 05:02 04/28/23 05:02 Subjective - Subjective Patient Reports: Resting Comfortably, No Complaints Objective Vital Signs: Oxygen O2 Source Room air I&O (Last 24 Hrs): Intake and Output Totals x24h 04/28/23 04/29/23 04/30/23 23:59 23:59 23:59 Intake Total 1722.281 550 Output Total 698 475 75 Balance 1024.281 75 -75 General: Alert, Oriented x3, No acute distress Cardiovascular: Regular rate, Normal S1, Normal S2 Respiratory: Chest non-tender, No respiratory distress, Breath sounds nml - Results Results: Laboratory Results WBC 5.2 x10^3/uL (4.8-10.8) 04/28/23 05:02 RBC 3.43 10^6/uL (4.70-6.10) L 04/28/23 05:02 Hgb 9.9 g/dL (14.0-18.0) L 04/28/23 05:02 Hct 30.3 % (42.0-52.0) L 04/28/23 05:02 MCV 88.3 fL (80.0-94.0) 04/28/23 05:02 MCH 28.9 pg (27.0-31.0) 04/28/23 05:02 MCHC 32.7 g/dL (32.0-36.0) 04/28/23 05:02 RDW 14.6 % (12.0-15.0) 04/28/23 05:02 Plt Count 142 10^3/uL (130-450) 04/28/23 05:02 MPV 8.9 fL (7.4-11.4) 04/28/23 05:02 Neut # (Auto) 4.4 10^3/uL (1.5-6.6) 04/28/23 05:02 Lymph # (Auto) 0.3 10^3/uL (1.5-3.5) L 04/28/23 05:02 [place] # (Auto) 0.4 10^3/uL (0.0-1.0) 04/28/23 05:02 Eos # (Auto) 0.1 10^3/uL (0.0-0.7) 04/28/23 05:02 Baso # (Auto) 0.0 10^3/uL (0.0-0.1) 04/28/23 05:02 Absolute Nucleated RBC 0.00 x10^3/uL 04/28/23 05:02 Nucleated RBC % 0.0 /100WBC 04/28/23 05:02 Platelet Estimate NORMAL (130-450,000) (NORMAL) 04/27/23 04:30 Platelet Morphology NORMAL APPEARANCE (NORMAL) 04/27/23 04:30 VBG pH 7.368 (7.31-7.41) 04/28/23 05:02 Ionized Calcium 1.13 mmol/L (1.15-1.33) L 04/28/23 05:02 Sodium 133 mmol/L (135-145) L 04/28/23 05:02 Potassium 3.7 mmol/L (3.5-4.5) 04/28/23 05:02 Chloride 101 mmol/L (101-111) 04/28/23 05:02 Carbon Dioxide 19 mmol/L (21-32) L 04/28/23 05:02 Anion Gap 13.0 (6-13) 04/28/23 05:02 BUN 73 mg/dL (6-20) H 04/28/23 05:02 Creatinine 4.0 mg/dL (0.6-1.3) H 04/28/23 05:02 Estimated GFR (MDRD) 15 (>89) L 04/28/23 05:02 Glucose 124 mg/dL (74-104) H 04/28/23 05:02 Lactic Acid 1.1 mmol/L (0.5-2.2) 04/24/23 15:32 Calcium 8.8 mg/dL (8.5-10.3) 04/28/23 05:02 Phosphorus 4.5 mg/dL (2.5-5.0) 04/28/23 05:02 Magnesium 1.9 mg/dL (1.7-2.3) 04/28/23 05:02 Total Bilirubin 0.3 mg/dL (0.2-1.0) 04/28/23 05:02 AST 17 IU/L (10-42) 04/28/23 05:02 ALT 9 IU/L (10-60) L 04/28/23 05:02 Alkaline Phosphatase 133 IU/L (42-121) H 04/28/23 05:02 Ammonia 24.3 umol/L (18-72) 04/25/23 04:45 Total Protein 5.8 g/dL (6.4-8.9) L 04/28/23 05:02 Albumin 3.6 g/dL (3.2-5.5) 04/28/23 05:02 Globulin 2.2 g/dL (2.1-4.2) 04/28/23 05:02 Albumin/Globulin Ratio 1.6 (1.0-2.2) 04/28/23 05:02 Lipase 37 U/L (11-82) 04/24/23 10:53 Urine Color DARK YELLOW 04/24/23 14:30 Urine Clarity CLEAR (CLEAR) 04/24/23 14:30 Urine pH 5.5 PH (5.0-7.5) 04/24/23 14:30 Ur Specific [place] >=1.030 (1.002-1.030) H 04/24/23 14:30 Urine Protein TRACE mg/dL (NEGATIVE) 04/24/23 14:30 Urine Glucose (UA) NEGATIVE mg/dL (NEGATIVE) 04/24/23 14:30 Urine Ketones NEGATIVE mg/dL (NEGATIVE) 04/24/23 14:30 Urine Occult Blood NEGATIVE (NEGATIVE) 04/24/23 14:30 Urine Nitrite NEGATIVE (NEGATIVE) 04/24/23 14:30 Urine Bilirubin NEGATIVE (NEGATIVE) 04/24/23 14:30 Urine Urobilinogen 0.2 (NORMAL) E.U./dL (NORMAL) 04/24/23 14:30 Ur Leukocyte Esterase NEGATIVE (NEGATIVE) 04/24/23 14:30 Ur Microscopic Review NOT INDICATED 04/24/23 14:30 Urine Culture Comments NOT INDICATED 04/24/23 14:30 Urine Creatinine 242.6 mg/dL 04/24/23 17:57 Urine Sodium 13.4 mmol/L 04/24/23 17:57 Nasal Adenovirus (PCR) NOT DETECTED 04/24/23 11:30 Nasal B. parapertussis DNA (PCR) NOT DETECTED 04/24/23 11:30 Nasal Coronavir 229E PCR NOT DETECTED 04/24/23 11:30 Nasal Coronavir HKU1 PCR NOT DETECTED 04/24/23 11:30 Nasal Coronavir NL63 PCR NOT DETECTED 04/24/23 11:30 Nasal Coronavir OC43 PCR NOT DETECTED 04/24/23 11:30 Nasal Enterovir/Rhinovir PCR NOT DETECTED 04/24/23 11:30 Nasal Influenza B PCR NOT DETECTED 04/24/23 11:30 Nasal Influenza A PCR NOT DETECTED 04/24/23 11:30 Nasal Parainfluen 1 PCR NOT DETECTED 04/24/23 11:30 Nasal Parainfluen 2 PCR NOT DETECTED 04/24/23 11:30 Nasal Parainfluen 3 PCR NOT DETECTED 04/24/23 11:30 Nasal Parainfluen 4 PCR NOT DETECTED 04/24/23 11:30 Nasal RSV (PCR) NOT DETECTED 04/24/23 11:30 Nasal Screen MRSA (PCR) NEGATIVE (NEGATIVE) 04/24/23 17:44 Nasal B.pertussis DNA PCR NOT DETECTED 04/24/23 11:30 Nasal C.pneumoniae (PCR) NOT DETECTED 04/24/23 11:30 Steven Human Metapneumo PCR NOT DETECTED 04/24/23 11:30 Nasal M.pneumoniae (PCR) NOT DETECTED 04/24/23 11:30 Nasal SARS-CoV-2 (PCR) NOT DETECTED 04/24/23 11:30 Blood Type O POSITIVE 04/24/23 10:53 Blood Type Recheck O POSITIVE 04/24/23 11:48 Antibody Screen NEGATIVE 04/24/23 10:53 - Procedures Procedures: Procedures INSPECTION OF LOWER INTESTINAL TRACT, ENDO (11/27/19) Sepsis Event Note (H) - Evaluation Current Stage of Sepsis: Septic shock - Sepsis Criteria Sepsis Criteria: Recorded Temperature greater than 38.3C or Less than 36C, WBC count greater than 12,000 or less than 4000, MAP less than 65 mmHg
[2023-04-30] MEDS: MORPHINE SOL 10 MG/0.5 ML ORAL SYRINGE PO PRN ×2 (19:12→22:36)
[2023-04-30] MEDS: oxyCODONE 5 MG TABLET PO PRN (22:52)
[2023-05-01] MEDS: ATROPINE 1% OPHTH DROPS 2 ML SL PRN ×2 (03:10→06:34)
[2023-05-01] MEDS: MORPHINE 2 MG/ML CARPUJECT IVP PRN (06:45)
[2023-05-01] MEDS ORDERED: DOCUSATE SODIUM 250 MG CAPSULE PO SCH (09:00)
[2023-05-01] MEDS: DOCUSATE SODIUM 250 MG CAPSULE PO SCH (16:29)
--- NOTE | 2023-05-01 16:53 | PROVIDER PROGRESS NOTE ---
Assessment/Plan - Problem List (1) Sepsis Assessment/Plan: He presented with sepsis, TYRA, liver mets, syncope was on IV fluids and required Levophed and broad-spectrum antibiotics. These have been stopped. (2) Comfort measures only status Assessment/Plan: Placed on comfort care on 04/28. Hospice will evaluate him for their service, and SW helping family look at where he could go to . Deep suctioning ordered, with [place] if needed. I updated the son at bedside today - Current Meds Current Meds: Current Medications Generic Name Dose Route Start Last Admin Trade Name Freq PRN Reason Stop Dose Admin Atropine Sulfate 1 - 4 drops 04/28/23 13:46 05/01/23 06:34 Atropine 1% Ophth Drops 2 Ml SL 4 drops Q2H PRN Administration Excessive secretions Docusate Sodium 250 - 500 mg 05/01/23 17:00 05/01/23 16:29 Docusate Sodium 250 Mg Capsule PO Not Given DAILY@1700 ANDREA Glycopyrrolate 0.2 mg 04/28/23 13:46 04/30/23 19:08 Glycopyrrolate 1 Mg/5 Ml Vial SUBQ 0.2 mg Q4H PRN Administration Excessive secretions Morphine Sulfate 10 mg 04/28/23 13:46 04/30/23 22:36 Morphine [place] 10 Mg/0.5 Ml Oral Syringe PO 10 mg Q2HR PRN Administration Moderate Pain (Level 4-6)/SOA Morphine Sulfate 2 mg 04/28/23 13:46 05/01/23 06:45 Morphine 2 Mg/Ml Carpuject IVP 2 mg Q2HR PRN Administration Severe Pain (Level 7-10)/ SOA Oxycodone HCl 5 mg 04/24/23 16:12 04/30/23 22:52 Oxycodone 5 Mg Tablet PO 5 mg Q4HR PRN Administration Pain 5 to 7 - Lab Result Fish Bone Diagrams: 04/28/23 05:02 04/28/23 05:02 - Additional Planning My Orders: My Active Orders 05/01/23 10:33 Airway Suctioning [Suction] [RC] PRN Subjective - Subjective Nursing Reports: Other (Opens eyes, no speech, did drink from straw today) Objective Vital Signs: Oxygen O2 Source Room air I&O (Last 24 Hrs): Intake and Output Totals x24h 04/29/23 04/30/2305/01/23 23:59 23:59 23:59 Intake Total 550 750 Output Total 378 175 110 Balance 75 575 -110 General: Other (Somnolent, opens eyes to voice) HEENT: EOMI, Other (Pale. Dry mucosa) Neuro: Other (Somnolent, moves all extrem spontaneously) Cardiovascular: Regular rate, No murmurs Respiratory: No respiratory distress, Breath sounds nml Abdomen: Normal bowel sounds, Soft, No tenderness Extremities: No clubbing, No edema, No tenderness/swelling - Results Results: Laboratory Results WBC 5.2 x10^3/uL (4.8-10.8) 04/28/23 05:02 RBC 3.43 10^6/uL (4.70-6.10) L 04/28/23 05:02 Hgb 9.9 g/dL (14.0-18.0) L 04/28/23 05:02 Hct 30.3 % (42.0-52.0) L 04/28/23 05:02 MCV 88.3 fL (80.0-94.0) 04/28/23 05:02 MCH 28.9 pg (27.0-31.0) 04/28/23 05:02 MCHC 32.7 g/dL (32.0-36.0) 04/28/23 05:02 RDW 14.6 % (12.0-15.0) 04/28/23 05:02 Plt Count 142 10^3/uL (130-450) 04/28/23 05:02 MPV 8.9 fL (7.4-11.4) 04/28/23 05:02 Neut # (Auto) 4.4 10^3/uL (1.5-6.6) 04/28/23 05:02 Lymph # (Auto) 0.3 10^3/uL (1.5-3.5) L 04/28/23 05:02 [place] # (Auto) 0.4 10^3/uL (0.0-1.0) 04/28/23 05:02 Eos # (Auto) 0.1 10^3/uL (0.0-0.7) 04/28/23 05:02 Baso # (Auto) 0.0 10^3/uL (0.0-0.1) 04/28/23 05:02 Absolute Nucleated RBC 0.00 x10^3/uL 04/28/23 05:02 Nucleated RBC % 0.0 /100WBC 04/28/23 05:02 Platelet Estimate NORMAL (130-450,000) (NORMAL) 04/27/23 04:30 Platelet Morphology NORMAL APPEARANCE (NORMAL) 04/27/23 04:30 VBG pH 7.368 (7.31-7.41) 04/28/23 05:02 Ionized Calcium 1.13 mmol/L (1.15-1.33) L 04/28/23 05:02 Sodium 133 mmol/L (135-145) L 04/28/23 05:02 Potassium 3.7 mmol/L (3.5-4.5) 04/28/23 05:02 Chloride 101 mmol/L (101-111) 04/28/23 05:02 Carbon Dioxide 19 mmol/L (21-32) L 04/28/23 05:02 Anion Gap 13.0 (6-13) 04/28/23 05:02 BUN 73 mg/dL (6-20) H 04/28/23 05:02 Creatinine 4.0 mg/dL (0.6-1.3) H 04/28/23 05:02 Estimated GFR (MDRD) 15 (>89) L 04/28/23 05:02 Glucose 124 mg/dL (74-104) H 04/28/23 05:02 Lactic Acid 1.1 mmol/L (0.5-2.2) 04/24/23 15:32 Calcium 8.8 mg/dL (8.5-10.3) 04/28/23 05:02 Phosphorus 4.5 mg/dL (2.5-5.0) 04/28/23 05:02 Magnesium 1.9 mg/dL (1.7-2.3) 04/28/23 05:02 Total Bilirubin 0.3 mg/dL (0.2-1.0) 04/28/23 05:02 AST 17 IU/L (10-42) 04/28/23 05:02 ALT 9 IU/L (10-60) L 04/28/23 05:02 Alkaline Phosphatase 133 IU/L (42-121) H 04/28/23 05:02 Ammonia 24.3 umol/L (18-72) 04/25/23 04:45 Total Protein 5.8 g/dL (6.4-8.9) L 04/28/23 05:02 Albumin 3.6 g/dL (3.2-5.5) 04/28/23 05:02 Globulin 2.2 g/dL (2.1-4.2) 04/28/23 05:02 Albumin/Globulin Ratio 1.6 (1.0-2.2) 04/28/23 05:02 Lipase 37 U/L (11-82) 04/24/23 10:53 Urine Color DARK YELLOW 04/24/23 14:30 Urine Clarity CLEAR (CLEAR) 04/24/23 14:30 Urine pH 5.5 PH (5.0-7.5) 04/24/23 14:30 Ur Specific [place] >=1.030 (1.002-1.030) H 04/24/23 14:30 Urine Protein TRACE mg/dL (NEGATIVE) 04/24/23 14:30 Urine Glucose (UA) NEGATIVE mg/dL (NEGATIVE) 04/24/23 14:30 Urine Ketones NEGATIVE mg/dL (NEGATIVE) 04/24/23 14:30 Urine Occult Blood NEGATIVE (NEGATIVE) 04/24/23 14:30 Urine Nitrite NEGATIVE (NEGATIVE) 04/24/23 14:30 Urine Bilirubin NEGATIVE (NEGATIVE) 04/24/23 14:30 Urine Urobilinogen 0.2 (NORMAL) E.U./dL (NORMAL) 04/24/23 14:30 Ur Leukocyte Esterase NEGATIVE (NEGATIVE) 04/24/23 14:30 Ur Microscopic Review NOT INDICATED 04/24/23 14:30 Urine Culture Comments NOT INDICATED 04/24/23 14:30 Urine Creatinine 242.6 mg/dL 04/24/23 17:57 Urine Sodium 13.4 mmol/L 04/24/23 17:57 Nasal Adenovirus (PCR) NOT DETECTED 04/24/23 11:30 Nasal B. parapertussis DNA (PCR) NOT DETECTED 04/24/23 11:30 Nasal Coronavir 229E PCR NOT DETECTED 04/24/23 11:30 Nasal Coronavir HKU1 PCR NOT DETECTED 04/24/23 11:30 Nasal Coronavir NL63 PCR NOT DETECTED 04/24/23 11:30 Nasal Coronavir OC43 PCR NOT DETECTED 04/24/23 11:30 Nasal Enterovir/Rhinovir PCR NOT DETECTED 04/24/23 11:30 Nasal Influenza B PCR NOT DETECTED 04/24/23 11:30 Nasal Influenza A PCR NOT DETECTED 04/24/23 11:30 Nasal Parainfluen 1 PCR NOT DETECTED 04/24/23 11:30 Nasal Parainfluen 2 PCR NOT DETECTED 04/24/23 11:30 Nasal Parainfluen 3 PCR NOT DETECTED 04/24/23 11:30 Nasal Parainfluen 4 PCR NOT DETECTED 04/24/23 11:30 Nasal RSV (PCR) NOT DETECTED 04/24/23 11:30 Nasal Screen MRSA (PCR) NEGATIVE (NEGATIVE) 04/24/23 17:44 Nasal B.pertussis DNA PCR NOT DETECTED 04/24/23 11:30 Nasal C.pneumoniae (PCR) NOT DETECTED 04/24/23 11:30 Steven Human Metapneumo PCR NOT DETECTED 04/24/23 11:30 Nasal M.pneumoniae (PCR) NOT DETECTED 04/24/23 11:30 Nasal SARS-CoV-2 (PCR) NOT DETECTED 04/24/23 11:30 Blood Type O POSITIVE 04/24/23 10:53 Blood Type Recheck O POSITIVE 04/24/23 11:48 Antibody Screen NEGATIVE 04/24/23 10:53 - Procedures Procedures: Procedures INSPECTION OF LOWER INTESTINAL TRACT, ENDO (11/27/19) Sepsis Event Note (H) - Evaluation Current Stage of Sepsis: Septic shock - Sepsis Criteria Sepsis Criteria: Recorded Temperature greater than 38.3C or Less than 36C, WBC count greater than 12,000 or less than 4000, MAP less than 65 mmHg
--- NOTE | 2023-05-02 09:01 | PROVIDER PROGRESS NOTE ---
Subjective - Prog Note Date Prog Note Date: 05/02/23 - Subjective Subjective: *CHART REVIEW ONLY NO SPECIFIC MEDICAL INDICATION FOR CONSULT (Request reason: end of life care)* 67 yo male w/recent dx of metastatic disease of unknown origin (liver, omental mets) who was admitted w/septic shock, renal failure. He was admitted to the ICU, given IV abx, and required pressors. He has declined over the course of his hospitalization. Reportedly over the past year, he had a significant functional decline and weight loss. Over the several weeks prior to admission, he was reported to have a 12kg weight loss. Palliative Care consult was done and he transitioned to DNR status. On 04/28, family elected comfort care. On 04/29, a hospice informational visit was requested for consideration of GIP level of care. Vanda Hurtado RN, visited w/pt and family. Pt was noted to be comf ortable and had not required IV analgesia in >24 hrs. Family expressed the desire for patient to remain in hospital for the duration of the hospital stay. sales order specialist explained that pt did not meet GIP level of care but would be eligible for hospice care if he discharged from hospital. Chart reviewed this am. opioids given: 04/30: morphine 10 mg po, none IV, oxycodone 5 po 05/01: morphine none po, 2mg IV, no oxycodone IV meds in past 24 hours: none It appears the primary issue at this point is disposition and caregiving. Patient does not meet GIP criteria. RECOMMENDATIONS: 1) AVOID morphine in the setting of renal failure: recommend use of oxycodone po/fentanyl or hydromorphone IV 2) Please coordinate w/hospice office when discharge date/location known and hospice admission will be coordinated. 3) If he develops agitation/restlessness, consider the addition of lorazepam. Objective - Vital Signs/Intake & Output Intake & Output: Intake & Output 04/29/23 04/30/23 05/01/23 05/02/23 23:59 23:59 23:59 23:59 Intake Total 550 750 100 Output Total 475 175 120 Balance 75 575 -20 - Lab Results Fish Bones: 04/28/23 05:02 04/28/23 05:02 Sepsis Event Note (H) - Evaluation Current Stage of Sepsis: Septic shock - Sepsis Criteria Sepsis Criteria: Recorded Temperature greater than 38.3C or Less than 36C, WBC count greater than 12,000 or less than 4000, MAP less than 65 mmHg
[2023-05-02] MEDS ORDERED: fentaNYL 100 MCG/2 ML VIAL IVP PRN (13:05)
--- NOTE | 2023-05-02 13:11 | PROVIDER PROGRESS NOTE ---
Assessment/Plan - Problem List (1) Sepsis Assessment/Plan: He presented with sepsis, TYRA, liver mets, syncope was on IV fluids and required Levophed and broad-spectrum antibiotics. These have been stopped when Comfort Care was ordered (2) Comfort measures only status Assessment/Plan: Placed on comfort care on 04/28. Today Hospice evaluated him for their service and he does not qualify for GIP ALEJANDRA has been helping family look at where he could go to , however family stated to Hospice doctor that they want him to pass away here Deep suctioning ordered yesterday, with [place] if needed. Daily BP ordered to be measured to follow if is imminent. He is still dry, but cool with syst BP in 90's, but is opening eyes and whispers an answer, was drinking from a straw last evening. Plan: Comfort eating I will stop the Morphine and start Fentanyl, as per today's written Hospice consult He could be discharged to go under Hospice care, and ALEJANDRA has been helping family look at where he could go be comfortable for end of life. I updated the son at bedside today - Current Meds Current Meds: Current Medications Generic Name Dose Route Start Last Admin Trade Name Freq PRN Reason Stop Dose Admin Atropine Sulfate 1 - 4 drops 04/28/23 13:46 05/01/23 06:34 Atropine 1% Ophth Drops 2 Ml SL 4 drops Q2H PRN Administration Excessive secretions Docusate Sodium 250 - 500 mg 05/01/23 17:00 05/01/23 16:29 Docusate Sodium 250 Mg Capsule PO Not Given DAILY@1700 ANDREA Glycopyrrolate 0.2 mg 04/28/23 13:46 04/30/23 19:08 Glycopyrrolate 1 Mg/5 Ml Vial SUBQ 0.2 mg Q4H PRN Administration Excessive secretions Oxycodone HCl 5 mg 04/24/23 16:12 04/30/23 22:52 Oxycodone 5 Mg Tablet PO 5 mg Q4HR PRN Administration Pain 5 to 7 - Lab Result Fish Bone Diagrams: 04/28/23 05:02 04/28/23 05:02 - Additional Planning My Orders: My Active Orders 05/02/23 13:02 O2 [Oxygen Therapy] [RC] .PRN 05/02/23 13:05 fentaNYL 25 mcg IVP Q2HR PRN Subjective - Subjective Patient Reports: Other (Denies pain, is asleep, awakens to voice, opens eyes and whispers in 2 word sentences) Objective Vital Signs: Vital Signs - 24 hr 05/02/23 07:00 Temperature 36.1 C L Heart Rate [ 107 H Brachial] Respiratory 12 Rate Blood Pressure 99/58 L [Left Brachial artery] O2 Saturation 89 L Oxygen O2 Source Room air I&O (Last 24 Hrs): Intake and Output Totals x24h 04/30/23 05/01/23 05/02/23 23:59 23:59 23:59 Intake Total 750 100 Output Total 175 120 Balance 575 -20 General: Other (Somnolent, opens eys and answers, to voice) HEENT: Other (dry m,ucosa) Neck: Supple Neuro: Other (Obtunded, moving all extrem) Cardiovascular: Regular rate Respiratory: No respiratory distress Abdomen: Soft Extremities: No edema, No tenderness/swelling Skin: No significant lesion (Pale, cool skin and dry) - Results Results: Laboratory Results WBC 5.2 x10^3/uL (4.8-10.8) 04/28/23 05:02 RBC 3.43 10^6/uL (4.70-6.10) L 04/28/23 05:02 Hgb 9.9 g/dL (14.0-18.0) L 04/28/23 05:02 Hct 30.3 % (42.0-52.0) L 04/28/23 05:02 MCV 88.3 fL (80.0-94.0) 04/28/23 05:02 MCH 28.9 pg (27.0-31.0) 04/28/23 05:02 MCHC 32.7 g/dL (32.0-36.0) 04/28/23 05:02 RDW 14.6 % (12.0-15.0) 04/28/23 05:02 Plt Count 142 10^3/uL (130-450) 04/28/23 05:02 MPV 8.9 fL (7.4-11.4) 04/28/23 05:02 Neut # (Auto) 4.4 10^3/uL (1.5-6.6) 04/28/23 05:02 Lymph # (Auto) 0.3 10^3/uL (1.5-3.5) L 04/28/23 05:02 [place] # (Auto) 0.4 10^3/uL (0.0-1.0) 04/28/23 05:02 Eos # (Auto) 0.1 10^3/uL (0.0-0.7) 04/28/23 05:02 Baso # (Auto) 0.0 10^3/uL (0.0-0.1) 04/28/23 05:02 Absolute Nucleated RBC 0.00 x10^3/uL 04/28/23 05:02 Nucleated RBC % 0.0 /100WBC 04/28/23 05:02 Platelet Estimate NORMAL (130-450,000) (NORMAL) 04/27/23 04:30 Platelet Morphology NORMAL APPEARANCE (NORMAL) 04/27/23 04:30 VBG pH 7.368 (7.31-7.41) 04/28/23 05:02 Ionized Calcium 1.13 mmol/L (1.15-1.33) L 04/28/23 05:02 Sodium 133 mmol/L (135-145) L 04/28/23 05:02 Potassium 3.7 mmol/L (3.5-4.5) 04/28/23 05:02 Chloride 101 mmol/L (101-111) 04/28/23 05:02 Carbon Dioxide 19 mmol/L (21-32) L 04/28/23 05:02 Anion Gap 13.0 (6-13) 04/28/23 05:02 BUN 73 mg/dL (6-20) H 04/28/23 05:02 Creatinine 4.0 mg/dL (0.6-1.3) H 04/28/23 05:02 Estimated GFR (MDRD) 15 (>89) L 04/28/23 05:02 Glucose 124 mg/dL (74-104) H 04/28/23 05:02 Lactic Acid 1.1 mmol/L (0.5-2.2) 04/24/23 15:32 Calcium 8.8 mg/dL (8.5-10.3) 04/28/23 05:02 Phosphorus 4.5 mg/dL (2.5-5.0) 04/28/23 05:02 Magnesium 1.9 mg/dL (1.7-2.3) 04/28/23 05:02 Total Bilirubin 0.3 mg/dL (0.2-1.0) 04/28/23 05:02 AST 17 IU/L (10-42) 04/28/23 05:02 ALT 9 IU/L (10-60) L 04/28/23 05:02 Alkaline Phosphatase 133 IU/L (42-121) H 04/28/23 05:02 Ammonia 24.3 umol/L (18-72) 04/25/23 04:45 Total Protein 5.8 g/dL (6.4-8.9) L 04/28/23 05:02 Albumin 3.6 g/dL (3.2-5.5) 04/28/23 05:02 Globulin 2.2 g/dL (2.1-4.2) 04/28/23 05:02 Albumin/Globulin Ratio 1.6 (1.0-2.2) 04/28/23 05:02 Lipase 37 U/L (11-82) 04/24/23 10:53 Urine Color DARK YELLOW 04/24/23 14:30 Urine Clarity CLEAR (CLEAR) 04/24/23 14:30 Urine pH 5.5 PH (5.0-7.5) 04/24/23 14:30 Ur Specific [place] >=1.030 (1.002-1.030) H 04/24/23 14:30 Urine Protein TRACE mg/dL (NEGATIVE) 04/24/23 14:30 Urine Glucose (UA) NEGATIVE mg/dL (NEGATIVE) 04/24/23 14:30 Urine Ketones NEGATIVE mg/dL (NEGATIVE) 04/24/23 14:30 Urine Occult Blood NEGATIVE (NEGATIVE) 04/24/23 14:30 Urine Nitrite NEGATIVE (NEGATIVE) 04/24/23 14:30 Urine Bilirubin NEGATIVE (NEGATIVE) 04/24/23 14:30 Urine Urobilinogen 0.2 (NORMAL) E.U./dL (NORMAL) 04/24/23 14:30 Ur Leukocyte Esterase NEGATIVE (NEGATIVE) 04/24/23 14:30 Ur Microscopic Review NOT INDICATED 04/24/23 14:30 Urine Culture Comments NOT INDICATED 04/24/23 14:30 Urine Creatinine 242.6 mg/dL 04/24/23 17:57 Urine Sodium 13.4 mmol/L 04/24/23 17:57 Nasal Adenovirus (PCR) NOT DETECTED 04/24/23 11:30 Nasal B. parapertussis DNA (PCR) NOT DETECTED 04/24/23 11:30 Nasal Coronavir 229E PCR NOT DETECTED 04/24/23 11:30 Nasal Coronavir HKU1 PCR NOT DETECTED 04/24/23 11:30 Nasal Coronavir NL63 PCR NOT DETECTED 04/24/23 11:30 Nasal Coronavir OC43 PCR NOT DETECTED 04/24/23 11:30 Nasal Enterovir/Rhinovir PCR NOT DETECTED 04/24/23 11:30 Nasal Influenza B PCR NOT DETECTED 04/24/23 11:30 Nasal Influenza A PCR NOT DETECTED 04/24/23 11:30 Nasal Parainfluen 1 PCR NOT DETECTED 04/24/23 11:30 Nasal Parainfluen 2 PCR NOT DETECTED 04/24/23 11:30 Nasal Parainfluen 3 PCR NOT DETECTED 04/24/23 11:30 Nasal Parainfluen 4 PCR NOT DETECTED 04/24/23 11:30 Nasal RSV (PCR) NOT DETECTED 04/24/23 11:30 Nasal Screen MRSA (PCR) NEGATIVE (NEGATIVE) 04/24/23 17:44 Nasal B.pertussis DNA PCR NOT DETECTED 04/24/23 11:30 Nasal C.pneumoniae (PCR) NOT DETECTED 04/24/23 11:30 Steven Human Metapneumo PCR NOT DETECTED 04/24/23 11:30 Nasal M.pneumoniae (PCR) NOT DETECTED 04/24/23 11:30 Nasal SARS-CoV-2 (PCR) NOT DETECTED 04/24/23 11:30 Blood Type O POSITIVE 04/24/23 10:53 Blood Type Recheck O POSITIVE 04/24/23 11:48 Antibody Screen NEGATIVE 04/24/23 10:53 - Procedures Procedures: Procedures INSPECTION OF LOWER INTESTINAL TRACT, ENDO (11/27/19) Sepsis Event Note (H) - Evaluation Current Stage of Sepsis: Septic shock - Sepsis Criteria Sepsis Criteria: Recorded Temperature greater than 38.3C or Less than 36C, WBC count greater than 12,000 or less than 4000, MAP less than 65 mmHg
[2023-05-02] MEDS: DOCUSATE SODIUM 250 MG CAPSULE PO SCH (16:37)
[2023-05-03] MEDS ORDERED: SCOPOLAMINE PATCH TOP SCH (16:30)
[2023-05-03] MEDS: LORazepam 2 MG/ML VIAL IVP PRN ×2 (16:32→23:36)
--- NOTE | 2023-05-03 16:39 | PROVIDER PROGRESS NOTE ---
Assessment/Plan - Problem List (1) Sepsis Assessment/Plan: He presented with sepsis, TYRA, liver mets, syncope was on IV fluids and required Levophed and broad-spectrum antibiotics. These have been stopped when Comfort Care was ordered (2) Comfort measures only status Assessment/Plan: Placed on comfort care on 04/28. Hospice evaluated him on 05/02 for their service and he does not qualify for GIP but they would take him after DEh Deep suctioning ordered with Vladimir if needed. I stopped the Morphine and started Fentanyl, as per written Hospice consult Daily BP ordered to be measured to follow if is imminent. He is still dry, but skin is cool, and syst BP in 90's. He is opening eyes and whispers an answer, but not drinking anymore. Today he has upper airway secretions and is on suppl O2 since yesterday. I updated the son and [id number] at bedside today Plan: Comfort eating/drinking allowed Suppl O2 ordered to keep sats >92% I will add Ativan prn agitation/air hunger I will order a Scopalamine patch for secretions He could be discharged to go under Hospice care, and SW has been suggesting the family look at where he could go be comfortable for end of life. But the family stated to Hospice doctor that they want him to pass away here. SW and Case Management told son and [id number] that pt does not have criteria to be an Inpt, then they said they have no financial resources to get caregivers or to put him in a facilit and a Medicaid appl was submitted. - Current Meds Current Meds: Current Medications Generic Name Dose Route Start Last Admin Trade Name Freq PRN Reason Stop Dose Admin Atropine Sulfate 1 - 4 drops 04/28/23 13:46 05/01/23 06:34 Atropine 1% Ophth Drops 2 Ml SL 4 drops Q2H PRN Administration Excessive secretions Glycopyrrolate 0.2 mg 04/28/23 13:46 04/30/23 19:08 Glycopyrrolate 1 Mg/5 Ml Vial SUBQ 0.2 mg Q4H PRN Administration Excessive secretions - Lab Result Fish Bone Diagrams: 04/28/23 05:02 04/28/23 05:02 - Additional Planning My Orders: My Active Orders 05/03/23 Lunch Full Liquid Diet [DIET] 05/03/23 15:14 LORazepam INJ [Ativan Inj (Vial)] 1 mg IVP Q2H PRN 05/03/23 16:30 Scopolamine Patch [Transderm-Scop] 1 patch TOP Q3D Subjective - Subjective Patient Reports: Shortness of Breath (Has upper airway rattling) Objective Vital Signs: Vital Signs - 24 hr 05/02/23 05/03/23 05/03/23 19:39 07:48 07:54 Temperature 36.2 C L Heart Rate [ 108 H Brachial] Respiratory 24 Rate Blood Pressure 99/63 [Left Brachial artery] O2 Saturation 87 L 92 If not protocol 1 1 5 : Oxygen Flow, liters/minute 05/03/23 09:26 Temperature Heart Rate [ Brachial] Respiratory Rate Blood Pressure [Left Brachial artery] O2 Saturation If not protocol 1 : Oxygen Flow, liters/minute Oxygen O2 Source Nasal cannula I&O (Last 24 Hrs): Intake and Output Totals x24h 05/01/23 05/02/23 05/03/23 23:59 23:59 23:59 Intake Total 100 50 50 Output Total 120 10 10 Balance -20 40 40 General: Moderate distress (from tachypnea and from secretions), Other (Lethargic, opens eyes to name and whispers 2 word answer, moves extrem) HEENT: Other (Dry mucosa) Neck: Supple Neuro: Other (Lethargic, generalized weakness) Cardiovascular: Regular rate, No murmurs Respiratory: Rales, Rhonchi Abdomen: Soft Extremities: No clubbing, No edema - Results Results: Laboratory Results WBC 5.2 x10^3/uL (4.8-10.8) 04/28/23 05:02 RBC 3.43 10^6/uL (4.70-6.10) L 04/28/23 05:02 Hgb 9.9 g/dL (14.0-18.0) L 04/28/23 05:02 Hct 30.3 % (42.0-52.0) L 04/28/23 05:02 MCV 88.3 fL (80.0-94.0) 04/28/23 05:02 MCH 28.9 pg (27.0-31.0) 04/28/23 05:02 MCHC 32.7 g/dL (32.0-36.0) 04/28/23 05:02 RDW 14.6 % (12.0-15.0) 04/28/23 05:02 Plt Count 142 10^3/uL (130-450) 04/28/23 05:02 MPV 8.9 fL (7.4-11.4) 04/28/23 05:02 Neut # (Auto) 4.4 10^3/uL (1.5-6.6) 04/28/23 05:02 Lymph # (Auto) 0.3 10^3/uL (1.5-3.5) L 04/28/23 05:02 Bryan # (Auto) 0.4 10^3/uL (0.0-1.0) 04/28/23 05:02 Eos # (Auto) 0.1 10^3/uL (0.0-0.7) 04/28/23 05:02 Baso # (Auto) 0.0 10^3/uL (0.0-0.1) 04/28/23 05:02 Absolute Nucleated RBC 0.00 x10^3/uL 04/28/23 05:02 Nucleated RBC % 0.0 /100WBC 04/28/23 05:02 Platelet Estimate NORMAL (130-450,000) (NORMAL) 04/27/23 04:30 Platelet Morphology NORMAL APPEARANCE (NORMAL) 04/27/23 04:30 VBG pH 7.368 (7.31-7.41) 04/28/23 05:02 Ionized Calcium 1.13 mmol/L (1.15-1.33) L 04/28/23 05:02 Sodium 133 mmol/L (135-145) L 04/28/23 05:02 Potassium 3.7 mmol/L (3.5-4.5) 04/28/23 05:02 Chloride 101 mmol/L (101-111) 04/28/23 05:02 Carbon Dioxide 19 mmol/L (21-32) L 04/28/23 05:02 Anion Gap 13.0 (6-13) 04/28/23 05:02 BUN 73 mg/dL (6-20) H 04/28/23 05:02 Creatinine 4.0 mg/dL (0.6-1.3) H 04/28/23 05:02 Estimated GFR (MDRD) 15 (>89) L 04/28/23 05:02 Glucose 124 mg/dL (74-104) H 04/28/23 05:02 Lactic Acid 1.1 mmol/L (0.5-2.2) 04/24/23 15:32 Calcium 8.8 mg/dL (8.5-10.3) 04/28/23 05:02 Phosphorus 4.5 mg/dL (2.5-5.0) 04/28/23 05:02 Magnesium 1.9 mg/dL (1.7-2.3) 04/28/23 05:02 Total Bilirubin 0.3 mg/dL (0.2-1.0) 04/28/23 05:02 AST 17 IU/L (10-42) 04/28/23 05:02 ALT 9 IU/L (10-60) L 04/28/23 05:02 Alkaline Phosphatase 133 IU/L (42-121) H 04/28/23 05:02 Ammonia 24.3 umol/L (18-72) 04/25/23 04:45 Total Protein 5.8 g/dL (6.4-8.9) L 04/28/23 05:02 Albumin 3.6 g/dL (3.2-5.5) 04/28/23 05:02 Globulin 2.2 g/dL (2.1-4.2) 04/28/23 05:02 Albumin/Globulin Ratio 1.6 (1.0-2.2) 04/28/23 05:02 Lipase 37 U/L (11-82) 04/24/23 10:53 Urine Color DARK YELLOW 04/24/23 14:30 Urine Clarity CLEAR (CLEAR) 04/24/23 14:30 Urine pH 5.5 PH (5.0-7.5) 04/24/23 14:30 Ur Specific [place] >=1.030 (1.002-1.030) H 04/24/23 14:30 Urine Protein TRACE mg/dL (NEGATIVE) 04/24/23 14:30 Urine Glucose (UA) NEGATIVE mg/dL (NEGATIVE) 04/24/23 14:30 Urine Ketones NEGATIVE mg/dL (NEGATIVE) 04/24/23 14:30 Urine Occult Blood NEGATIVE (NEGATIVE) 04/24/23 14:30 Urine Nitrite NEGATIVE (NEGATIVE) 04/24/23 14:30 Urine Bilirubin NEGATIVE (NEGATIVE) 04/24/23 14:30 Urine Urobilinogen 0.2 (NORMAL) E.U./dL (NORMAL) 04/24/23 14:30 Ur Leukocyte Esterase NEGATIVE (NEGATIVE) 04/24/23 14:30 Ur Microscopic Review NOT INDICATED 04/24/23 14:30 Urine Culture Comments NOT INDICATED 04/24/23 14:30 Urine Creatinine 242.6 mg/dL 04/24/23 17:57 Urine Sodium 13.4 mmol/L 04/24/23 17:57 Nasal Adenovirus (PCR) NOT DETECTED 04/24/23 11:30 Nasal B. parapertussis DNA (PCR) NOT DETECTED 04/24/23 11:30 Nasal Coronavir 229E PCR NOT DETECTED 04/24/23 11:30 Nasal Coronavir HKU1 PCR NOT DETECTED 04/24/23 11:30 Nasal Coronavir NL63 PCR NOT DETECTED 04/24/23 11:30 Nasal Coronavir OC43 PCR NOT DETECTED 04/24/23 11:30 Nasal Enterovir/Rhinovir PCR NOT DETECTED 04/24/23 11:30 Nasal Influenza B PCR NOT DETECTED 04/24/23 11:30 Nasal Influenza A PCR NOT DETECTED 04/24/23 11:30 Nasal Parainfluen 1 PCR NOT DETECTED 04/24/23 11:30 Nasal Parainfluen 2 PCR NOT DETECTED 04/24/23 11:30 Nasal Parainfluen 3 PCR NOT DETECTED 04/24/23 11:30 Nasal Parainfluen 4 PCR NOT DETECTED 04/24/23 11:30 Nasal RSV (PCR) NOT DETECTED 04/24/23 11:30 Nasal Screen MRSA (PCR) NEGATIVE (NEGATIVE) 04/24/23 17:44 Nasal B.pertussis DNA PCR NOT DETECTED 04/24/23 11:30 Nasal C.pneumoniae (PCR) NOT DETECTED 04/24/23 11:30 Steven Human Metapneumo PCR NOT DETECTED 04/24/23 11:30 Nasal M.pneumoniae (PCR) NOT DETECTED 04/24/23 11:30 Nasal SARS-CoV-2 (PCR) NOT DETECTED 04/24/23 11:30 Blood Type O POSITIVE 04/24/23 10:53 Blood Type Recheck O POSITIVE 04/24/23 11:48 Antibody Screen NEGATIVE 04/24/23 10:53 - Procedures Procedures: Procedures INSPECTION OF LOWER INTESTINAL TRACT, ENDO (11/27/19) Sepsis Event Note (H) - Evaluation Current Stage of Sepsis: Septic shock - Sepsis Criteria Sepsis Criteria: Recorded Temperature greater than 38.3C or Less than 36C, WBC count greater than 12,000 or less than 4000, MAP less than 65 mmHg
[2023-05-03] MEDS: GLYCOPYRROLATE 1 MG/5 ML VIAL SUBQ PRN (20:50)
[2023-05-04] MEDS: LORazepam 2 MG/ML VIAL IVP PRN (06:02)
[2023-05-04 08:27] VITALS: BP 115/90; O2SAT 94
--- NOTE | 2023-05-04 14:59 | Discharge Plan ---
Discharge Plan Problem Reviewed?: Yes Disposition: 20 No Smoking: If you smoke, Please STOP! Call for help.
--- NOTE | 2023-05-04 15:10 | DISCHARGE SUMMARY ---
Discharge Summary Admit Date: 04/24/23 Discharge Date: 05/04/23 Discharging Provider: Dr Jewels Frederick Primary Care Provider: Dr Art Mauricio Discharge Disposition: 20 - HPI History of Present Illness: Patient is a 67-year-old male with a past medical history of CAD, prior SC, hyperparathyroidism, hyperlipidemia, type 2 diabetes on Metformin who presented to the ED after a syncopal episode at home. Patient was recently seen at [facility] on 04/16 for chest and abdominal pain. A CT chest was done which revealed evidence of pneumonitis in his chest as well as lesions in his omentum, spleen, and liver. He stated that he has been feeling generally unwell since then and has actually given up eating mostly this past week. Patient had a syncopal episode at home. He is also been having some generalized abdominal pain at home. Upon presentation to our ED, he was noted to have TYRA with a creatinine of 4.4 as well as an elevated lactic acid. He was in shock requiring iv fluids and Levophed. A CT chest abdomen pelvis was performed which showed evidence of cirrhosis with moderate volume ascites as well as multiple liver lesions concerning for hepatocellular carcinoma with metastasis. He was started on IV fluids and Levophed in the ED as well as IV antibiotics. Repeat labs revealed an improvement in his renal function. Patient was also producing urine through a Mast catheter. He was seen to be low risk for requiring dialysis and will th erefore be admitted to the ICU here for treating shock and TYRA. - HOSPITAL COURSE Hospital Course: (1) Septic shock His low blood pressure was likely the etiology of his syncopal episode at home. He was admitted to the ICU, put on iv fluids, iv norepinephrine, empiric IV vancomycin and cefepime. Blood and urine cultures were neg, and CXR only developed a streak, felt to be atelectasis. (2) Lactic acidosis This resolved with treatment as in #1. (3) Altered mental status Improved somewhat as hypotension cleared up, but he was somnolent due to uremia. (4) TYRA (acute kidney injury) His renal function worsened. He became anuric. A Lasix challenge with 100 mg IV was given. Extensive discussions held with surrounding hospitals in order to attain transfer. He was accepted at [facility] and [facility], however there were no open beds availability. He was also on the CC list. (5) Comfort measures only status On 04/28/23, the family chose to stop lab draws and treatments and to put him on Comfort Care. He received pain meds, Ativan as needed, Scopalamine patch and comfort eating was ordered. He on 05/04/23 with his family at bedside. (6) Metastasis to liver of unknown origin CT abd/pelvis showed evidence of cirrhosis with moderate volume ascites as well as multiple liver lesions concerning for hepatocellular carcinoma with m etastasis. The primary site of malignancy was never totally established (7) CAD He had a Hx of prior SC. (8) DM Type 2 He continued to eat very little while here. (9) Hx of hypertension We did not order his home BP meds due to hypotension. - ALLERGIES Allergies/Adverse Reactions: Allergies Allergy/AdvReac Type Severity Reaction Status Date / Time pollen extracts Allergy Unknown Unknown Verified 04/24/23 16:22 baclofen AdvReac Headache Verified 04/24/23 10:32 terfenadine [From [place]] AdvReac Headache Verified 04/24/23 10:32 - MEDICATIONS Home Medications: Ambulatory Orders Medication Instructions Recorded Confirmed Amlodipine Besylate 10 mg PO QPM 02/06/14 04/25/23 Nitroglycerin [Nitrostat] 0.4 mg SL Q5MIN PRN 02/06/14 04/24/23 Rosuvastatin Calcium [Crestor] 40 mg PO DAILY 06/28/22 04/24/23 gemfibroziL [Lopid] 600 mg PO BIDAC 06/28/22 04/24/23 lisinopriL [Zestril] 5 mg PO DAILY 06/28/22 04/24/23 metFORMIN [Glucophage] 500 mg PO BIDWM 06/28/22 04/24/23 [place]-3/Dha/Epa/Fish Oil [Fish Oil 1 each PO DAILY 04/24/23 04/24/23 1,000 mg Softgel] Acetaminophen [Tylenol] 650 mg PO Q6H PRN 04/25/23 04/25/23 - LABS Result Diagrams: 04/28/23 05:02 04/28/23 05:02 - SEPSIS Current Stage of Sepsis: Septic shock Sepsis Criteria: Recorded Temperature greater than 38.3C or Less than 36C, WBC count greater than 12,000 or less than 4000, MAP less than 65 mmHg
== END 2023-05-04 14:35 | disposition expired | DRG 871 ==
LOC: EDUNIT# → ED 10:24 → ICU 16:12 → MS2 04-28 16:39
PROVIDERS: ADMIT Family Medicine; ATTEND Internal Medicine
DX: A41.9 Sepsis, unspecified organism (principal); R65.21 Severe sepsis with septic shock; R18.8 Other ascites; C78.7 Secondary malignant neoplasm of liver and intrahepatic bile duct; J98.11 Atelectasis; Z68.35 Body mass index [BMI] 35.0-35.9, adult; N17.9 Acute kidney failure, unspecified; R41.82 Altered mental status, unspecified; Z51.5 Encounter for palliative care; C76.2 Malignant neoplasm of abdomen; K74.60 Unspecified cirrhosis of liver; I25.10 Atherosclerotic heart disease of native coronary artery without angina pectoris; I25.2 Old myocardial infarction; E11.9 Type 2 diabetes mellitus without complications; Z79.84 Long term (current) use of oral hypoglycemic drugs; I10 Essential (primary) hypertension; I95.9 Hypotension, unspecified; E78.5 Hyperlipidemia, unspecified; R68.0 Hypothermia, not associated with low environmental temperature; R63.0 Anorexia; Z66 Do not resuscitate; R53.1 Weakness; F32.A Depression, unspecified; F41.9 Anxiety disorder, unspecified
CPT/HCPCS: 36415; 71045; 71250; 74176; 80048; 80053; 81003; 82140; 82272; 82330; 82570; 83605; 83690; 83735; 84100; 84300; 85025; 86850; 86900; 86901; 87086; 87150; 87633; 93005; 93306; 96361; 96365; 96375; 99285; A9270; J1940; J2060; J3370; J3490; J7120; P9047; 81001; 87040